=== PATIENT | male | born 1950 | race African-American/Black ===

== ENCOUNTER 2016-03-03 16:35 | Inpatient (IN) ==
[2016-03-03] MEDS ORDERED: NITROGLYCERIN 2% OINT 1 INCH/GM PACK TOP ONE (16:50)
--- NOTE | 2016-03-03 16:51 | Emergency Department Note ---
Arrival - Arrival Chief Complaint: Non-Specific ED Nursing Triage Note: c/o productive cough onset friday. pt had increased trop at [facility] Mode of Arrival: Stretcher Time Seen by Provider: 03/03/16 16:46 - History of Present Illness HPI Narrative: The patient presented to [facility] complaining of midepigastric pain which began Friday. He stated yesterday his pain was severe but he stated at home and toughed it out. Today he came to the emergency department for further evaluation after his pain persisted. At [facility] he was found to have ST depression laterally and other nonspecific changes but no ST elevations. The patient has elevated CK and MB and troponin with troponin of 54.3. He states his pain has gotten slightly better with medications given at [place]. He still has some midepigastric pain. Allergies/Adverse Reactions: Allergies Allergy/AdvReac Type Severity Reaction Status Date / Time No Known Allergies Allergy Unverified 03/03/16 16:52 Review of System - Review of System 12 point system: reviewed and no additional remarkable complaints except as stated Medical,Surgical,& Family Hx - Medical History Cardio: History of: Hypertension Endocrine: History of: Diabetes Mellitus (NIDDM) - Social History Smoking Status: Never smoker Frequency of Alcohol Use: Occasionally Type of Drug Use: None Exam Physical Examination: The patient appears well-developed and well-nourished with no acute distress. HEENT exam is unremarkable. The oropharynx is moist. Tympanic membranes are shiny. The neck appears normal with midline appearance of the trachea. There is full range of motion. The lungs are clear bilaterally. There is symmetric movement of the chest wall with inspiration. No point tenderness is present. The heart has a regular rate and rhythm with no gallops or murmurs. Abdomen demonstrates a normal appearance and is nontender with no rebound or guarding. Normal active bowel sounds are present. Midepigastric region is nontender. The extremities demonstrate no clubbing, cyanosis, or edema and are intact. Normal range of motion is present. Neurological exam is unremarkable. Cranial nerves II through XII were checked and intact. No focal motor sensory deficit is present in the extremities. Vital Signs: Vital Signs Temperature 98.2 F 03/03/16 16:40 Pulse Rate 84 03/03/16 16:40 Respiratory Rate 18 03/03/16 16:48 Blood Pressure 144/90 03/03/16 16:40 O2 Sat by Pulse Oximetry 98 03/03/16 16:40 Course - Consultations Consultation #1: Dr. Will Miller was notified of the admission and will either have Dr. Santos or himself evaluate the patient. Time: 16:51 Consultation #2: Dr. Santos requests rags laborer be called back. He also requests the patient be given Brilinta 180mg po X 1. Time: 16:55 Disposition Clinical Impression: Non-STEMI (non-ST elevated myocardial infarction), Hypertension, Diabetes Case discussed with: patient, patient's family Disposition: Still a Patient Time of Disposition: 16:52
[2016-03-03] MEDS ORDERED: NITROGLYCERIN 2% OINT 1 INCH/GM PACK TOP STA (16:52)
[2016-03-03] MEDS ORDERED: TICAGRELOR 90 MG TABLET PO STA (16:54)
[2016-03-03] MEDS ORDERED: TICAGRELOR 90 MG TABLET ONE (17:01)
[2016-03-03] MEDS ORDERED: HEPARIN/NACL 0.9% 2 UNITS/ML 1,000 ML IV ONE (17:13)
[2016-03-03] MEDS ORDERED: LIDOCAINE 1% 20 ML VIAL ONE (17:13)
--- NOTE | 2016-03-03 17:30 | Cardiology History & Physical ---
Assessment and Plan (1) Non-STEMI (non-ST elevated myocardial infarction) Status: Acute Assessment and plan: The patient is having a non-STEMI, but is having some ongoing anginal symptoms. He has a very large increase in cardiac enzymes. I think would be best to proceed to emergent cardiac catheterization and possible revascularization. The risks, alternatives, and potential benefits were discussed with the patient who understands and wishes to proceed. Current Visit: Yes (2) Diabetes Status: Acute Current Visit: Yes (3) Hypertension Status: Acute Current Visit: Yes History of Present Illness History of present illness: Mr. Cameron is a 65 year old male with a history of hypertension, hyperlipidemia , and diabetes. For the last week or so he has noticed when he is exerting himself he gets the chest discomfort. It's in the epigastric region. It seems to resolve with rest. There is some mild associated dyspnea and fatigue. This weekend the symptoms became worse. He thought this was indigestion and ignored the symptoms. They really became much worse on Friday. He presented to his local emergency room today and initial cardiac enzymes so a huge jump in his cardiac troponin of greater than 50 at baseline. He is still having some ongoing but milder epigastric chest discomfort. It improved after getting nitroglycerin. He has felt very fatigued and short of breath associated with this. This been no radiation. This been no diaphoresis, fever, chills, or cough. He denies any dysphagia or gastrointestinal blood loss. He has no previous history of myocardial infarction or coronary artery disease. His records from the outside hospital and [facility] were reviewed today. Home Medications Medication Instructions Recorded Confirmed Type Insulin NPH/Regular 70/30 [HumuLIN 10 unit SUBCUT QPM PRN 03/03/16 03/03/16 History 70/30] Insulin NPH/Regular 70/30 [HumuLIN 15 unit SUBCUT QAM PRN 03/03/16 03/03/16 History 70/30] Lisinopril 20 mg PO DAILY 03/03/16 03/03/16 History amLODIPine [Norvasc] 10 mg PO DAILY 03/03/16 03/03/16 History Home Medications Medication Instructions Recorded Confirmed Type Insulin NPH/Regular 70/30 [HumuLIN 10 unit SUBCUT QPM PRN 03/03/16 03/03/16 History 70/30] Insulin NPH/Regular 70/30 [HumuLIN 15 unit SUBCUT QAM PRN 03/03/16 03/03/16 History 70/30] Lisinopril 20 mg PO DAILY 03/03/16 03/03/16 History amLODIPine [Norvasc] 10 mg PO DAILY 03/03/16 03/03/16 History Allergies Allergy/AdvReac Type Severity Reaction Status Date / Time No Known Allergies Allergy Unverified 03/03/16 16:52 12 point system: reviewed and no additional remarkable complaints except as stated Medical,Surgical,& Family Hx - Medical History Cardio: History of: Hypertension Endocrine: History of: Diabetes Mellitus (NIDDM) - Social History Smoking Status: Never smoker Frequency of Alcohol Use: Occasionally Type of Drug Use: None Cardiology Physical Exam - Constitutional Vitals: Vital Signs Temp Pulse Resp BP Pulse Ox 98.2 F 84 18 144/90 98 03/03/16 16:40 03/03/16 16:40 03/03/16 16:48 03/03/16 16:40 03/03/16 16:40 Intake and Output 03/03/16 03/03/16 03/03/16 07:59 15:59 23:59 Other: Weight 88.451 kg Patient Weight 03/03/16 23:59 Weight 88.451 kg Exam: General: Appears well developed, well nourished, no apparent distress HEENT: Normocephalic, atraumatic Neck: Supple Neck, Midline Trachea, No Bruit, No JVD Cardiac: Reg Rate and Rhythm, 2 out of 6 Murmur, S4 gallop, no rub Lungs: Clear to auscultation, No Wheeze, Rales, Rhonchi Neuro: Cranial Nerve 2-12 Intact, Motor Function Grossly Intact Abdomen: Soft, Active Bowel Sounds, No Masses, No Pulsations/Bruits Skin: Normal color, no rash Extremities: No Clubbing, No Cyanosis, No Edema, Normal Upper Extr. Pulses Musculoskeletal: No acute abnormality noted Psychiatric: The patient does not appear to be anxious or depressed Result/EKG - Labs Lab Results: I have reviewed the past 24 hour labs - EKG EKG results: interpreted by me
[2016-03-03] MEDS ORDERED: HYDROmorphone 2 MG/1 ML VIAL ONE (17:33)
[2016-03-03] MEDS ORDERED: MIDAZOLAM 2 MG/2 ML VIAL ONE (18:21)
--- NOTE | 2016-03-03 18:41 | Cardiac Catheterization ---
Date of Procedure:: 03/03/16 Procedure: CLINICAL SUMMARY: The patient presented late into the course of a non-ST elevation [place]. He was still having ongoing symptoms and is being taken emergently for cardiac catheterization and definitive coronary artery assessment. PROCEDURES PERFORMED: 1. Right femoral percutaneous arteriotomy 2. Resting hemodynamics. 3. Coronary arteriography. 4. Right femoral arteriogram. 5. Angio-Seal closure of the right femoral artery. 6. Balloon angioplasty of the proximal right coronary artery in 2 locations with a 2.5 x 15 mm apex angioplasty balloon. DESCRIPTION OF PROCEDURE: After obtaining informed consent, the patient was brought to the cardiac catheterization lab where the right groin was prepped and draped in the usual sterile manner. Using IV sedation, local anesthesia, and Modified Seldinger technique, a needle was placed in the right femoral artery and a sheath was positioned without difficulty. A left coronary catheter was advanced over a guidewire under fluoroscopic control to the ascending aorta where angiograms of the left coronary artery were undertaken in multiple views. After adequate angiograms, this catheter was withdrawn and a right coronary catheter was advanced over a guidewire under fluoroscopic control to the ascending aorta with angiograms of the RCA were undertaken in numerous projections. I could not get a JR4 or a short AR-1 to seat properly for the intervention so I used an AL0.75 interventional guide for the procedure. I attempted to cross the lesion with a PT Graphix wire but could not. I switched for a pro-water wire and I was able to get across the lesion. We then used a 2.5 x 15 mm apex angioplasty balloon to perform balloon angioplasty in the proximal right coronary artery in 2 locations. Follow-up angiography showed a adequate result. There was some residual stenosis in the right coronary artery the side of intervention but this vessel was diffusely diseased. He had TOÑO 3 flow at the conclusion of the procedure. A right femoral arteriogram was performed showing adequate sheath placement for closure device deployment. The sheath was then removed and an Angio-Seal device was used to obtain hemostasis. The patient was transferred back to the room having suffered no immediate complications. HEMODYNAMICS: See the accompanying data sheet. CORONARY ARTERIOGRAPHY: LEFT MAIN: The left main coronary artery is a large caliber vessel, which bifurcates into the left anterior descending and left circumflex coronary arteries. The left main coronary artery has 30% distal tapering. LEFT CIRCUMFLEX: The left circumflex coronary artery is small caliber diffusely diseased vessel which gives off a small obtuse marginal and a small to moderate sized posterolateral system. There is diffuse disease in this vessel as well as an 80% stenosis in its mid to distal segment. The distal posterolateral branches of marginal size to be a surgical target. I am also suspicious that there is a completely occluded obtuse marginal branch that is not filling at all at this time. LEFT ANTERIOR DESCENDING: The left anterior descending artery is moderate sized vessel which gives off a moderate-sized diagonal branch proximally and several smaller diagonals in its distal segment. There is a greater than 90%, hazy, calcified stenosis of the ostial LAD. The first diagonal branch is subtotaled in its midsegment with slow distal filling. There is diffuse moderate disease in the mid to distal left anterior descending coronary artery as well. RIGHT CORONARY ARTERY: The right coronary artery is subtotaled proximally. PERIPHERAL ARTERIOGRAPHY: Right femoral arteriogram shows a normal right iliofemoral artery with adequate sheath placement for closure device deployment. IMPRESSIONS: 1. Late presentation non-ST elevation myocardial infarction involving complete occlusion of the right coronary artery as well as severe three-vessel coronary artery disease as described above. 2. Successful percutaneous intervention to the proximal right coronary artery with balloon angioplasty as described above. 3. High-grade residual disease in the ostial left anterior descending coronary artery. 4. Normal right iliofemoral artery was successful and distal closure. 5. Severe ischemic cardiomyopathy. PLAN: The patient came in with a late presentation of an in ST elevation [place]. He was having ongoing symptoms we took him emergently to catheterization which demonstrated occlusion of his right coronary artery. We got this successfully opened with balloon angioplasty, however, he has a high-grade ostial LAD lesion which I think would be very risky for percutaneous approach. He also has significant residual disease in his right coronary artery as well as the circumflex system. Ultimately, I thought the best course of action was to simply open the right coronary with balloon angioplasty and consider coronary artery bypass surgery for more definitive revascularization. His case was discussed today extensively with Dr. Miles Mehta who came in to review the films. We will be medically managing him in letting him recover from this event while anticipating possible surgical revascularization in a few days. I did not perform a ventriculogram to try to reduce the contrast exposure. We can assess his left ventricular systolic function with echo. Anesthesia: minimal conscious sedation Surgeon / Physician: Mando Santos Estimated blood loss: minimal Condition: critical Disposition: ICU/CCU - Discharge Disposition: Still a Patient - Medications / Follow-up
[2016-03-03] MEDS ORDERED: ACETAMINOPHEN 325 MG TABLET PO PRN (18:47)
[2016-03-03] MEDS ORDERED: SODIUM CHLORIDE 0.9% 1,000 ML IV SCH (19:00)
[2016-03-03] MEDS ORDERED: MAGNESIUM SULF RIDER 2 GM in PREMIX 1 EACH IV PRN (19:16)
[2016-03-03] MEDS ORDERED: MAGNESIUM SULF RIDER 4 GM in PREMIX 1 EACH IV PRN (19:16)
[2016-03-03] MEDS ORDERED: DOCUSATE SODIUM 100 MG CAPSULE PO PRN (19:16)
[2016-03-03] MEDS: HYDROmorphone 2 MG/1 ML VIAL IV PRN (20:50)
[2016-03-03 20:54] LABS: Basophils % 0.1 % (0.0-0.8); Hematocrit 40.4 VOL% (42.0-52.0); Hemoglobin 13.1 GM/DL (14.0-18.0); Immature Granulocytes % 0.4 %; Immature Granulocytes Absolute 0.06 #; Lymphocytes # 1.5 10*3/uL (1.4-4.0); Lymphocytes % 10.6 % (21.2-54.2); Mean Corpuscular HGB Conc 32.4 GM/DL (32-36); Mean Corpuscular Hemoglobin 26 PG (27-34); Mean Corpuscular Volume 80.8 FL (87-102); Mean Platelet Volume 11.1 FL (9.6-12.0); Monocytes % 7.4 % (1.7-12.7); Neutrophils # 11.2 10*3/uL (1.4-7.4); Neutrophils % 81.5 % (38.7-73.9); Platelet Count 269 10*3/uL (130-400); Red Cell Distribution Width 14.5 % (9.3-17.3); White Blood Count 13.7 10*3/uL (4.5-13.71)
[2016-03-03] MEDS ORDERED: FUROSEMIDE 40 MG/4 ML VIAL IV ONE ×2 (21:21)
[2016-03-03] MEDS: CARVEDILOL 6.25 MG TABLET PO SCH (22:17)
[2016-03-03] MEDS: TICAGRELOR 90 MG TABLET PO SCH (22:17)
[2016-03-03] MEDS: ROSUVASTATIN 20 MG TABLET PO SCH (22:18)
[2016-03-03] MEDS: ACETYLCYSTEINE 600 MG CAPSULE PO SCH (22:18)
[2016-03-03 23:31] LABS: INR 1.2; PT Patient Result 12.5 SECS; Partial Thromboplastin Time 32.9 SECS (0-40)
[2016-03-04] MEDS: HEPARIN DRIP 25,000 UNITS/500 ML PREMIX IV SCH ×2 (00:34→23:44)
[2016-03-04] MEDS: HYDROmorphone 2 MG/1 ML VIAL IV PRN ×2 (02:08→05:08)
[2016-03-04 04:25] LABS: Apearance,Urine Slightly Hazy (Clear); Bilirubin,Urine Negative (Negative); Blood, Urine Negative (Negative); Glucose,Urine (UA) 50 mg/dL (Negative); Ketones,Urine 5 mg/dL (Negative); Mucus,Urine Few /LPF (Occasional); Nitrite,Urine Negative (Negative); Protein,Urine >=500 MG/DL; RBC,Urine 1 /HPF (0-4); Sperm,Urine Few /HPF (Negative); Urine Specific Gravity 1.058 (1.001-1.035); WBC,Urine 1 /HPF (0-6)
[2016-03-04 04:26] LABS: Urine Color Dark yellow (Yellow)
[2016-03-04 04:39] LABS: Basophils % 0.1 % (0.0-0.8); Hematocrit 37.6 VOL% (42.0-52.0); Hemoglobin 12.2 GM/DL (14.0-18.0); Immature Granulocytes % 0.7 %; Lymphocytes # 0.7 10*3/uL (1.4-4.0); Lymphocytes % 4.4 % (21.2-54.2); Mean Corpuscular HGB Conc 32.4 GM/DL (32-36); Mean Corpuscular Hemoglobin 26 PG (27-34); Mean Corpuscular Volume 80.2 FL (87-102); Mean Platelet Volume 11.2 FL (9.6-12.0); Monocytes # 0.9 10*3/uL (0.11-0.8); Monocytes % 5.7 % (1.7-12.7); Neutrophils # 13.6 10*3/uL (1.4-7.4); Neutrophils % 89.1 % (38.7-73.9); Platelet Count 266 10*3/uL (130-400); Red Blood Count 4.69 10*6/uL (3.8-5.5); Red Cell Distribution Width 14.1 % (9.3-17.3); White Blood Count 15.3 10*3/uL (4.5-13.71)
[2016-03-04 05:07] LABS: Band Neutrophils 1 % (0-10); Lymphocytes 5 % (20-55); Segmented Neutrophils 89 % (50-85); Total Cells Counted 100
[2016-03-04 05:08] LABS: Burr Cells Slight; Hypochromasia 1+; Ovalocytes Slight; Platelet Estimate Adequate
[2016-03-04 05:31] LABS: CKMB % 5.5 %; Osmolality,Calculated 284.4 MOS/KG (273-304); Potassium 4.4 MMOL/L (3.5-5.1); Risk Ratio 3.11; VLDL CHOLESTEROL 14.2 MG/DL
[2016-03-04 05:32] LABS: Troponin I Only 45.4 NG/ML (0.00-0.045)
[2016-03-04 06:33] LABS: INR 1.2; PT Patient Result 12.3 SECS; Partial Thromboplastin Time 39.1 SECS (0-40)
[2016-03-04] MEDS ORDERED: HEPARIN DRIP 25,000 UNITS/500 ML PREMIX IV SCH (07:00)
--- NOTE | 2016-03-04 07:00 | EKG Report ---
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
[2016-03-04] MEDS: HEPARIN 5,000 UNIT/1 ML VIAL IV PRN (07:13)
--- NOTE | 2016-03-04 08:19 | EKG Report ---
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
--- NOTE | 2016-03-04 08:31 | Ultrasound Report ---
Exam: US carotid duplex BI Date: 03/04/2016 7:00 AM Indication: Coronary artery disease non-stemi Findings: Grayscale color flow analysis and spectral analysis imaging was performed with image stored and captured. Right Flow velocities centimeters per second Common carotid artery: 76 Proximal ICA: 62 Distal ICA: 34 External carotid artery: 65 Vertebral artery: 55 ICA/CCA ratio: 0.8 Measurements in millimeters Distal ICA: 5.6 Left: Flow velocities centimeters per second Common carotid artery: 62 Proximal ICA: 45 Distal ICA: 30 External carotid artery: 76 Vertebral artery: 35 ICA/CCA ratio: 0.7 Measurements in millimeters Distal ICA: 6.7 Grayscale color flow analysis reveals a normal color flow. There some intimal hyperplasia and plaque along the takeoff of the internal carotid arteries bilaterally. No spectral broadening present. Impression: 1. 16-49% stenosis bilaterally. Today studies were performed utilizing indirect NASCET criteria The ultrasound images were stored and captured PROCEDURE INTERPRETED AT [facility] DEPARTMENT OF RADIOLOGY Final Report Signed by: Dr. Soy Gordon
[2016-03-04] MEDS ORDERED: SPIRONOLACTONE 25 MG TABLET PO SCH (09:00)
[2016-03-04] MEDS ORDERED: LISINOPRIL 2.5 MG TABLET PO SCH (09:00)
[2016-03-04] MEDS ORDERED: FUROSEMIDE 40 MG TABLET PO SCH (09:00)
[2016-03-04] MEDS: ACETYLCYSTEINE 600 MG CAPSULE PO SCH ×2 (10:02→21:31)
[2016-03-04] MEDS: CARVEDILOL 6.25 MG TABLET PO SCH ×2 (10:02→21:30)
[2016-03-04] MEDS: ASPIRIN EC 81 MG TABLET PO SCH (10:02)
[2016-03-04] MEDS: TICAGRELOR 90 MG TABLET PO SCH ×2 (10:03→21:30)
--- NOTE | 2016-03-04 12:48 | ECHO Report ---
Omid Cameron Exam Date: 03/04/2016 07:43 Referring Physician: Technologist: Beverly Malone RDCS Age: 65 Ht (in): Wt (lb): Gender: M Exam Location: [facility] Echo Indications: Non-ST elevation (NSTEMI) myocardial infarction, NIDDM, Essential (primary) hypertension, Hyperlipidemia, unspecified, Shortness of breath, Chronic fatigue, unspecified BP: / HR: Rhythm: Sinus Technical Quality: IMPRESSIONS Left ventricular ejection fraction is estimated at 20-25 %. There is mild global hypokinesis and severe inferior hypo-to akinesis. Mild left ventricular hypertrophy. Mildly thickened mitral valve with moderate mitral regurgitation. Mild tricuspid valve regurgitation. Mild aortic sclerosis without significant stenosis. Mild bilateral atrial enlargement. MEASUREMENTS (Male / Female) Normal Values 2D ECHO LV Diastolic Diameter PLAX 5.9 cm 4.2 - 5.9 / 3.9 - 5.3 cm LV Systolic Diameter PLAX 4.8 cm LV Fractional Shortening PLAX 18.8 % IVS Diastolic Thickness 1.4 cm 0.6 - 1.0 / 0.6 - 0.9 cm LVPW Diastolic Thickness 1.4 cm 0.6 - 1.0 / 0.6 - 0.9 cm RV Internal Dim ED PLAX 3.4 cm Aortic Root Diameter 3.1 cm LA Systolic Diameter LX 6.0 cm 3.0 - 4.0 / 2.7 - 3.8 cm DOPPLER TR Peak Velocity 331.0 cm/s TR Peak Gradient 43.8 mmHg FINDINGS Left Ventricle Normal left ventricular cavity size. Mild left ventricular hypertrophy. Left ventricular ejection fraction is estimated at 20-25 %. Right Ventricle The right ventricle is normal in size and function. Right Atrium Moderately increased right atrial size. Left Atrium Moderately increased left atrial size. Mitral Valve Mildly thickened mitral valve with moderate mitral regurgitation. Aortic Valve Mild aortic valve sclerosis without significant stenosis. Tricuspid Valve Morphologically normal tricuspid valve. Mild tricuspid valve regurgitation. Tricuspid regurgitation velocities suggest a PAP of 54 mmHg. Pulmonic Valve Morphologically normal pulmonic valve without significant stenosis. There is no pulmonic regurgitation. Pericardium Normal pericardium without effusion. Aorta Normal ascending aorta dimension. Mando Santos (Electronically Signed) Final Date: 04 March 2016 12:46
[2016-03-04] MEDS ORDERED: FUROSEMIDE 40 MG/4 ML VIAL IV ONE (12:51)
[2016-03-04] MEDS ORDERED: FUROSEMIDE 40 MG/4 ML VIAL ONE (12:54)
[2016-03-04] MEDS ORDERED: NITROGLYCERIN DRIP 50 MG/250 ML BOTTLE IV ONE (12:54)
[2016-03-04] MEDS ORDERED: ALBUTEROL 0.63 MG/3 ML NEB RESP TX PRN (12:55)
--- NOTE | 2016-03-04 12:56 | Cardiology Progress Note ---
Antonio Morales Vanessa, RN, am scribing for, and in the presence of, Mando Santos MD 12:55. Assessment and Plan - Time spent with patient Time spent with patient: Less than 30 minutes (1) Status post percutaneous transluminal coronary angioplasty Status: Acute Assessment and plan: 65 year old black male with PMHx diabetes, hyperlipidemia, and HTN now presenting with NSTEMI after 3 days of epigastric discomfort and shortness of breath relieved with rest. Baseline troponin > 50 at outlying facility and discomforts were relieved with SL TNG. Taken for emergent cardiac catheterization yesterday evening. Now s/p PTCA of pRCA 2.5x15 [place] balloon. Found to have high grade 90% ostial LAD lesion, diffusely diseased Cx , and RCA with residual disease. 1. NSTEMI 2. Severe 3 vessel coronary artery disease. Dr. Miles Mehta has been consulted & patient will be planned for CABG. Medical management at this time to recover. 3. Severe ischemic cardiomyopathy. Echo this AM, pending 4. Diabetes mellitus 5. HTN 6. Hyperlipidemia Current Visit: Yes (2) Non-STEMI (non-ST elevated myocardial infarction) Status: Acute Current Visit: Yes (3) Diabetes Status: Acute Current Visit: Yes Qualifiers: Diabetes mellitus complication status: with kidney complications Diabetes mellitus complication detail: with nephropathy (4) Hypertension Status: Acute Current Visit: Yes (5) Diabetes mellitus with diabetic nephropathy Status: Acute Current Visit: Yes (6) Ischemic cardiomyopathy Status: Acute Current Visit: Yes Cardiology - PN: Subj Interval history: Closely monitored in ICU. Echo being performed at bedside. No CP. Says still feels mildly short of breath. RFA cath site dsg removed. Groin soft without bruising or bruit noted. Distal pulses 2+ and palpable audrey. CPK 1,629 and CTNI 45.4 this AM. Electrolytes and creatinine WNL. Mild hematuria in [place] drain bag. Current Medications Acetaminophen (Tylenol Tab) 650 mg PO Q4H PRN PRN Reason: Fever, Headache, Mild Pain Acetaminophen/Codeine Phosphate (Tylenol/Codeine #3) 2 tablet PO Q4H PRN PRN Reason: Pain Moderate (4-7) Acetylcysteine (Mucomyst Cap (Renal Protect)) 600 mg PO BID [facility] Last Admin: 03/04/16 10:02 Dose: 600 mg Aspirin () 81 mg PO DAILY [facility] Last Admin: 03/04/16 10:02 Dose: 81 mg Carvedilol (Coreg) 3.125 mg PO BID [facility] Last Admin: 03/04/16 10:02 Dose: 3.125 mg Chlorhexidine Gluconate (Hibiclens) 1 applic TOP TID [facility] Stop: 03/07/16 21:01 Chlorhexidine Gluconate (Peridex) 15 ml SWISH/SPIT BID [facility] Docusate Sodium (Colace Cap) 100 mg PO BID PRN PRN Reason: Constipation Furosemide (Lasix Tab) 40 mg PO DAILY [facility] Last Admin: 03/04/16 10:03 Dose: 40 mg Heparin Sodium (Porcine) () 3,000 unit IV .PER PROTOCOL PRN PRN Reason: Per Protocol Last Admin: 03/04/16 07:13 Dose: 3,000 unit Hydromorphone HCl (Dilaudid Inj) 0.5 mg IV Q4H PRN PRN Reason: Pain Severe (8-10) Last Admin: 03/04/16 05:08 Dose: 0.5 mg Heparin Sodium/Dextrose () 25,000 units in 500 mls @ 21.228 mls/hr IV TITRATE DASHA; 12 UNITS/KG/HR PRN Reason: Protocol Last Titration: 03/04/16 07:11 Dose: 11.3 units/kg/hr, 20 mls/hr Magnesium Sulfate 2 gm/ Premix 50 mls @ 25 mls/hr IV .PER PROTOCOL PRN; Protocol PRN Reason: Per Protocol Magnesium Sulfate 4 gm/ Premix 100 mls @ 25 mls/hr IV .PER PROTOCOL PRN; Protocol PRN Reason: Per Protocol Cefuroxime Sodium 1,500 mg/ (Sodium Chloride) 100 mls @ 200 mls/hr IV PREOP ONE Stop: 03/05/16 06:29 Lisinopril (Prinivil) 2.5 mg PO DAILY [facility] Last Admin: 03/04/16 10:02 Dose: 2.5 mg Ondansetron HCl (Zofran Inj) 4 mg IV Q4H PRN PRN Reason: Nausea Rosuvastatin Calcium (Crestor) 40 mg PO BEDTIME [facility] Last Admin: 03/03/16 22:18 Dose: 40 mg Spironolactone (Aldactone) 25 mg PO DAILY [facility] Last Admin: 03/04/16 10:03 Dose: 25 mg Ticagrelor (Brilinta) 90 mg PO BID [facility] Last Admin: 03/04/16 10:03 Dose: 90 mg Zaleplon (Sonata) 10 mg PO BEDTIME PRN PRN Reason: Sleep Exam (Progress Note) - Constitutional Vitals: Period Temp Pulse Resp BP Sys/Cruz Pulse Ox Last 24 Hr 98.2 F-98.4 F 77-100 17-22 116-198/78-118 90-98 General appearance: no acute distress - Head Head exam: Present: atraumatic - Eye Eye exam: Absent: periorbital swelling Pupils: Present: EWA - ENT ENT exam: Present: normal external ear exam - Neck Neck exam: Present: normal inspection. Absent: tenderness - Respiratory Respiratory exam: Present: clear to auscultation bilaterally, rales. Absent: rhonchi, stridor, wheezes - Cardiovascular Cardiovascular exam: Present: regular rate and rhythm. Absent: bradycardia, JVD , tachycardia - GI/Abdominal GI/Abdominal exam: Present: normal bowel sounds, soft. Absent: ascites, distended, tenderness - Extremities Exam Extremities exam: Present: normal inspection. Absent: calf tenderness, edema - Back Exam Back exam: Present: normal inspection - Neurological Exam Neurological exam: Present: alert, oriented X3 - Psychiatric Psychiatric exam: Present: normal affect, normal mood - Skin Skin exam: Present: warm, dry, other (dorsalis pedis, posterior tibial pulses 2 + audrey). Absent: rash Result/EKG - Labs CBC & BMP: 03/04/16 04:08 03/04/16 04:08 Lab Results: I have reviewed the past 24 hour labs Labs: Laboratory Results - last 24 hr 03/03/16 03/03/16 03/03/16 20:37 21:50 23:03 WBC 13.7 RBC 5.00 Hgb 13.1 L Hct 40.4 L MCV 80.8 L MCH 26 L MCHC 32.4 RDW 14.5 Plt Count 269 MPV 11.1 Neut % (Auto) 81.5 H Lymph % (Auto) 10.6 L [place] % (Auto) 7.4 Eos % (Auto) 0.0 Baso % (Auto) 0.1 Neut # (Auto) 11.2 H Lymph # (Auto) 1.5 [place] # (Auto) 1.0 H Eos # (Auto) 0.0 Baso # (Auto) 0.0 Total Counted Immature Gran % 0.4 Nucleated RBC % 0.0 Immature Gran # 0.06 Segmented Neutrophils Band Neutrophils Lymphocytes Monocytes Nucleated RBCs # 0.00 Platelet Estimate Hypochromasia Ovalocytes [place] Cells Morphology Comment INR 1.2 PT Patient/Control Mix 12.5 Circ Anticoag PTT 32.9 Sodium Potassium Chloride Carbon Dioxide Anion Gap BUN Creatinine GFR Calculation BUN/Creatinine Ratio Glucose Calculated Osmolality Calcium Magnesium Total Creatine Kinase CK-MB (CK-2) CK and CKMB Interp Troponin I Triglycerides Cholesterol LDL Cholesterol VLDL Cholesterol HDL Cholesterol Heart Disease Risk Ratio Urine Color Dark yellow Urine Appearance Slightly hazy Urine pH 5.0 Ur Specific Seanor 1.058 H Urine Protein >=500 Urine Glucose (UA) 50 Urine Ketones 5 Urine Blood Negative Urine Nitrate Negative Urine Bilirubin Negative Urine Urobilinogen 4.0 H Urine Leukocytes Negative Urine RBC 1 Urine WBC 1 Urine Mucus Few Urine Sperm Few Ur Culture Indicated? Not indicated 03/04/16 03/04/16 03/04/16 04:08 04:08 04:08 WBC 15.3 H RBC 4.69 Hgb 12.2 L Hct 37.6 L MCV 80.2 L MCH 26 L MCHC 32.4 RDW 14.1 Plt Count 266 MPV 11.2 Neut % (Auto) 89.1 H Lymph % (Auto) 4.4 L [place] % (Auto) 5.7 Eos % (Auto) 0.0 Baso % (Auto) 0.1 Neut # (Auto) 13.6 H Lymph # (Auto) 0.7 L [place] # (Auto) 0.9 H Eos # (Auto) 0.0 Baso # (Auto) 0.0 Total Counted 100 Immature Gran % 0.7 Nucleated RBC % 0.0 Immature Gran # 0.10 Segmented Neutrophils 89 H Band Neutrophils 1 Lymphocytes 5 L Monocytes 5 Nucleated RBCs # 0.00 Platelet Estimate Adequate Hypochromasia 1+ Ovalocytes Slight [place] Cells Slight Morphology Comment INR PT Patient/Control Mix Circ Anticoag PTT Sodium 133 L Potassium 4.4 Chloride 99 Carbon Dioxide 18 L Anion Gap 20.4 H BUN 39 H Creatinine 2.10 H GFR Calculation 46 BUN/Creatinine Ratio 18.00 Glucose 271 H Calculated Osmolality 284.4 Calcium 8.0 L Magnesium 1.8 Total Creatine Kinase 1629 H CK-MB (CK-2) 90.4 H CK and CKMB Interp 5.5 Troponin I 45.400 H Triglycerides 71 Cholesterol 202 H LDL Cholesterol 125.0 VLDL Cholesterol 14.2 HDL Cholesterol 65 H Heart Disease Risk Ratio 3.11 Urine Color Urine Appearance Urine pH Ur Specific Seanor Urine Protein Urine Glucose (UA) Urine Ketones Urine Blood Urine Nitrate Urine Bilirubin Urine Urobilinogen Urine Leukocytes Urine RBC Urine WBC Urine Mucus Urine Sperm Ur Culture Indicated? 03/04/16 06:08 WBC RBC Hgb Hct MCV MCH MCHC RDW Plt Count MPV Neut % (Auto) Lymph % (Auto) [place] % (Auto) Eos % (Auto) Baso % (Auto) Neut # (Auto) Lymph # (Auto) [place] # (Auto) Eos # (Auto) Baso # (Auto) Total Counted Immature Gran % Nucleated RBC % Immature Gran # Segmented Neutrophils Band Neutrophils Lymphocytes Monocytes Nucleated RBCs # Platelet Estimate Hypochromasia Ovalocytes [place] Cells Morphology Comment INR 1.2 PT Patient/Control Mix 12.3 Circ Anticoag PTT 39.1 Sodium Potassium Chloride Carbon Dioxide Anion Gap BUN Creatinine GFR Calculation BUN/Creatinine Ratio Glucose Calculated Osmolality Calcium Magnesium Total Creatine Kinase CK-MB (CK-2) CK and CKMB Interp Troponin I Triglycerides Cholesterol LDL Cholesterol VLDL Cholesterol HDL Cholesterol Heart Disease Risk Ratio Urine Color Urine Appearance Urine pH Ur Specific [place] Urine Protein Urine Glucose (UA) Urine Ketones Urine Blood Urine Nitrate Urine Bilirubin Urine Urobilinogen Urine Leukocytes Urine RBC Urine WBC Urine Mucus Urine Sperm Ur Culture Indicated? - EKG EKG results: interpreted by me EKG shows: sinus rhythm (pulse 80's, ST depression) Specialty Discharge - Follow Up or Referrals I, Mando Santos MD, personally performed the services described in this documentation, ascribed by Elba Alvarez RN in my presence, and it is both accurate and complete 256 .
[2016-03-04] MEDS ORDERED: GLUCAGON 1 MG VIAL IM PRN (12:59)
[2016-03-04] MEDS ORDERED: DEXTROSE 50% 25 GM/50 ML VIAL IV PRN (12:59)
[2016-03-04] MEDS: MORPHINE 2 MG/1 ML SYRINGE IV PRN ×3 (13:05→18:08)
--- NOTE | 2016-03-04 13:08 | Hospitalist Consult Note ---
Assessment and Plan (1) Non-STEMI (non-ST elevated myocardial infarction) Status: Acute Assessment and plan: await cabg on friday, coreg, lisinopril, asa and heparin drip, stat EKG and troponin Current Visit: Yes (2) Hypertension Status: Acute Assessment and plan: coreg and lisinopril Current Visit: Yes (3) Diabetes mellitus with diabetic nephropathy Status: Acute Assessment and plan: ISC, lantus 10 units Current Visit: Yes (4) Ischemic cardiomyopathy Status: Acute Assessment and plan: echo ef 25% post [place], chf on exam, stat cxr, lasix 40 mg IV every 12 hours Current Visit: Yes (5) SOB (shortness of breath) Status: Acute Assessment and plan: morphine and nitro drip added as tolerated by blood pressure. Lasix IV every 12 hours. Stat ABG and cxr, venous dopplers, cont heparin, start abx, elevated WBC, zosyn, Stat EKG and troponin. Current Visit: Yes (6) Renal failure Status: Acute Assessment and plan: renal us, monitor Current Visit: Yes History of Present Illness - Data of Consult Consult date: 03/04/16 Requesting Physician: Mando Santos - Consult Narrative Reason for consult: DM management History of present illness: Mr. Cameron is a 65 year old male with history of HTN and IDDM present with elevated troponin several days out from [place]. Dr Santos did heart cath and ballooned open his right coronary artery but patient had high-grade residual disease in the ostial left anterior descending coronary artery. Patient scheduled to go for CABG on Friday. We were asked to see him to manage his diabetes. Patient still having pressure in his chest with associated shortness of breath and we had to go up on his oxygen. His white count is elevated looked pale to me. I have ordered a nitro drip, morphine, stat chest x-ray and an ABG. He sounds wet on exam and lab orders and Dr. Santos has ordered some IV Lasix. Echocardiogram discussed with Dr. Santos his EF is only 25%. Patient has severe cardiomyopathy from this myocardial infarction. EKG, troponin. CC: Mando Santos MD - Home Medications and Allergies Home Medications: Home Medications Medication Instructions Recorded Confirmed Type Insulin NPH/Regular 70/30 [HumuLIN 10 unit SUBCUT QPM PRN 03/03/16 03/03/16 History 70/30] Insulin NPH/Regular 70/30 [HumuLIN 15 unit SUBCUT QAM PRN 03/03/16 03/03/16 History 70/30] Lisinopril 20 mg PO DAILY 03/03/16 03/03/16 History amLODIPine [Norvasc] 10 mg PO DAILY 03/03/16 03/03/16 History Allergies/Adverse Reactions: Allergies Allergy/AdvReac Type Severity Reaction Status Date / Time No Known Allergies Allergy Unverified 03/03/16 16:52 Medical,Surgical,& Family Hx - Medical History Cardio: History of: Hypertension Endocrine: History of: Diabetes Mellitus (NIDDM), Dyslipidemia - Surgical History Orthopedic Surgeries: Surgical HX of;: Orthopedic Surgery (knee surgery 2007) - Family History Family History: Reports;: Family Heart Disease - Social History Smoking Status: Never smoker Frequency of Alcohol Use: Occasionally Type of Drug Use: None Marital Status: Lives With:: Spouse Functional capacity: independent ambulation - Constitutional Constitutional: Present: weakness. Absent: fever(s), headache(s) - EENT Eyes: Absent: blurry vision, diplopia Ears: Absent: decreased hearing, ear discharge Nose, mouth and throat: Present: sore throat. Absent: headache(s) - Cardiovascular Cardiovascular: Present: chest pain at rest, chest pain with activity, dyspnea, dyspnea on exertion, orthopnea. Absent: edema - Respiratory Respiratory: Present: cough, dyspnea, dyspnea on exertion. Absent: wheezing, change in phlegm color - Gastrointestinal Gastrointestinal: Absent: abdominal pain, constipation, diarrhea, nausea, vomiting - Genitourinary Genitourinary: Absent: difficulty urinating, dysuria - Musculoskeletal Musculoskeletal: Absent: arthralgias - Neurological Neurological: Absent: confusion, headache(s), syncope - Psychiatric Psychiatric: Absent: anxiety, depression - Endocrine Endocrine: Present: fatigue, heat intolerance - Hematologic/Lymphatic Hematologic/Lymphatic: Absent: easy bleeding, easy bruising Exam - Constitutional Vitals: Period Temp Pulse Resp BP Sys/Cruz Pulse Ox Last 24 Hr 97.6 F-98.4 F 77-100 12-22 116-198/78-118 90-98 General appearance: normal weight, severe distress - Head Head exam: Present: normal inspection, normocephalic - Eye Eye exam: Present: EOMI. Absent: scleral icterus Pupils: Present: EWA, normal accommodation - ENT ENT exam: Present: normal exam, normal external ear exam - Neck Neck exam: Absent: lymphadenopathy, thyromegaly - Respiratory Respiratory exam: Present: decreased breath sounds, rales. Absent: wheezes - Cardiovascular Cardiovascular exam: Present: tachycardia. Absent: systolic murmur - GI/Abdominal GI/Abdominal exam: Present: normal bowel sounds, soft. Absent: tenderness - Extremities Exam Extremities exam: Present: normal inspection, normal capillary refill - Neurological Exam Neurological exam: Present: alert, oriented X3, CN II-XII intact, reflexes normal. Absent: motor sensory deficit - Psychiatric Psychiatric exam: Present: normal affect, normal mood - Skin Skin exam: Present: normal color, warm Results - Labs CBC & BMP: 03/04/16 04:08 03/04/16 04:08 Lab Results: I have reviewed the past 24 hour labs - Diagnostic Findings Procedure: Chest x-ray: pending, Ultrasound: report reviewed by me (carotid less than 50% stenosis ) Specialty Discharge - Follow Up or Referrals
[2016-03-04] MEDS: NITROGLYCERIN DRIP 50 MG/250 ML BOTTLE IV SCH (13:10)
--- NOTE | 2016-03-04 13:11 | EKG Report ---
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
--- NOTE | 2016-03-04 13:14 | XRay Report ---
Exam: XR chest 1V portable Date: 03/04/2016 1:00 PM Indication: Shortness of breath Comparison: None Technical:AP semierect portable Findings: Cardiomegaly is present. Alveolar edema is present. Oxygen tubing external cardiac leads are present. ASVD present mild degenerative changes of the shoulders present. No obvious pneumothorax noted. Impression: 1. Cardiomegaly with a component of acute pulmonary edema with the alveolar edematous changes in low-volume effusions present bilaterally PROCEDURE INTERPRETED AT [facility] DEPARTMENT OF RADIOLOGY Final Report Signed by: Dr. Soy Gordon
[2016-03-04] MEDS: PANTOPRAZOLE 40 MG TABLET PO SCH (13:23)
[2016-03-04] MEDS: INSULIN GLARGINE 100 UNIT/ML SUBCUT SCH (13:24)
[2016-03-04] MEDS: PIPERACILLIN/TAZOBACTAM 3,375 MG in SODIUM CHLORIDE 0.9% 100 ML IV SCH ×2 (13:29→22:24)
[2016-03-04 13:57] LABS: ABG Base Excess -5.2 MMOL/L (-2.5-2.5); ABG Oxygen Saturation 90.7 % (95-100); ABG PCO2 29.3 MM HG (35-48); ABG PH 7.406 (7.35-7.45); ABG PO2 62.5 MM HG (80-95); ABG TCO2 16.3 MMOL/L (23-27)
--- NOTE | 2016-03-04 14:28 | Cardiothoracic Consult ---
Assessment and Plan - Time spent with patient Time spent with patient: Greater than 30 minutes (1) Coronary artery disease Status: Acute Assessment and plan: Risk Model and Variables - STS Adult Cardiac Surgery Database Version 2.81 RISK SCORES About the STS Risk Calculator Procedure: CAB Only Risk of Mortality: 7.04% Morbidity or Mortality: 48.846% Long Length of Stay: 27.243% Short Length of Stay: 10.785% Permanent Stroke: 4.164% Prolonged Ventilation: 33.541% DSW Infection: 2.524% Renal Failure: 21.929% Reoperation: 14.1% 65-year-old gentleman with complex medical history and recent diagnosis of multivessel coronary artery disease, moderate mitral regurg, congestive heart failure with EF off 20%. After lengthy discussion with the patient and and explaining that the patient is a high risk for surgery however it represents his best option for revascularization they understands risks benefits and alternatives and they are willing to proceed. Of note I will obtain a carotid ultrasound to rule out carotid stenosis. Also obtained an echo earlier today which showed the severely depressed function of the ventricle as well as the mitral disease. We will proceed with surgery on Friday , 03/08/2016. Meanwhile he will remain on heparin drip. Current Visit: Yes History of Present Illness - Data of Consult Patient: new to practice Consult date: 03/03/16 Requesting Physician: Mando Santos - Consult Narrative Reason for consult: Severe coronary artery disease History of present illness: Mr. Cameron is a 65 year old male who has been having increasing shortness of breath for the past few weeks. Most recently on Friday the patient couldn't catch his breath at all. He started having chest pain. He came to the ER and he was evaluated and he was taken to the [facility]. He was found to have severe multivessel coronary artery disease with complete occlusion of his right coronary artery. Direct biopsy was ballooned open with good reperfusion however it was found that he has distal disease with long segment stenosis. He was found also to have LAD as well as circumflex disease. The patient had an echo today showing EF of 20-25% with moderate mitral regurg. CC: Mando Santos MD - Home Medications and Allergies Home Medications: Home Medications Medication Instructions Recorded Confirmed Type Insulin NPH/Regular 70/30 [HumuLIN 10 unit SUBCUT QPM PRN 03/03/16 03/03/16 History 70/30] Insulin NPH/Regular 70/30 [HumuLIN 15 unit SUBCUT QAM PRN 03/03/16 03/03/16 History 70/30] Lisinopril 20 mg PO DAILY 03/03/16 03/03/16 History amLODIPine [Norvasc] 10 mg PO DAILY 03/03/16 03/03/16 History Allergies/Adverse Reactions: Allergies Allergy/AdvReac Type Severity Reaction Status Date / Time No Known Allergies Allergy Unverified 03/03/16 16:52 12 point system: reviewed and no additional remarkable complaints except as stated (HPI) Medical,Surgical,& Family Hx - Medical History Cardio: History of: Cardiac Dysrhythmia, CHF, CAD, Hypertension, [place] Endocrine: History of: Diabetes Mellitus (NIDDM), Dyslipidemia Renal: History of: Renal Failure - Surgical History Orthopedic Surgeries: Surgical HX of;: Orthopedic Surgery (knee surgery 2007) - Family History Family History: Reports;: Family Heart Disease - Social History Smoking Status: Never smoker Frequency of Alcohol Use: Occasionally Type of Drug Use: None Physical Examination Vital Signs Temp Pulse Resp BP Pulse Ox 98.2 F 84 18 144/90 98 03/03/16 16:40 03/03/16 16:40 03/03/16 16:40 03/03/16 16:40 03/03/16 16:40 General: Present: No Apparent Distress HEENT: Present: PERRL Neck: Present: Supple Neck Cardiac: Present: Reg Rate and Rhythm Lungs: Present: Normal Exam Neuro: Present: Cranial Nerve 2-12 Intact Abdomen: Present: Soft Skin: Present: Clear Result/EKG - Labs CBC & BMP: 03/04/16 04:08 03/04/16 04:08 Labs: Laboratory Results - last 24 hr 03/03/16 03/03/16 03/03/16 20:37 21:50 23:03 WBC 13.7 RBC 5.00 Hgb 13.1 L Hct 40.4 L MCV 80.8 L MCH 26 L MCHC 32.4 RDW 14.5 Plt Count 269 MPV 11.1 Neut % (Auto) 81.5 H Lymph % (Auto) 10.6 L [place] % (Auto) 7.4 Eos % (Auto) 0.0 Baso % (Auto) 0.1 Neut # (Auto) 11.2 H Lymph # (Auto) 1.5 [place] # (Auto) 1.0 H Eos # (Auto) 0.0 Baso # (Auto) 0.0 Total Counted Immature Gran % 0.4 Nucleated RBC % 0.0 Immature Gran # 0.06 Segmented Neutrophils Band Neutrophils Lymphocytes Monocytes Nucleated RBCs # 0.00 Platelet Estimate Hypochromasia Ovalocytes Kristofer Cells Morphology Comment INR 1.2 PT Patient/Control Mix 12.5 Circ Anticoag PTT 32.9 ABG pH ABG pCO2 ABG pO2 ABG HCO3 ABG Total CO2 ABG O2 Saturation ABG Base Excess Sodium Potassium Chloride Carbon Dioxide Anion Gap BUN Creatinine GFR Calculation BUN/Creatinine Ratio Glucose Hemoglobin A1c Calculated Osmolality Calcium Magnesium Total Creatine Kinase CK-MB (CK-2) CK and CKMB Interp Troponin I Triglycerides Cholesterol LDL Cholesterol VLDL Cholesterol HDL Cholesterol Heart Disease Risk Ratio Free T4 TSH 3rd Generation Urine Color Dark yellow Urine Appearance Slightly hazy Urine pH 5.0 Ur Specific [place] 1.058 H Urine Protein >=500 Urine Glucose (UA) 50 Urine Ketones 5 Urine Blood Negative Urine Nitrate Negative Urine Bilirubin Negative Urine Urobilinogen 4.0 H Urine Leukocytes Negative Urine RBC 1 Urine WBC 1 Urine Mucus Few Urine Sperm Few Ur Culture Indicated? Not indicated Blood Type Antibody Screen 03/04/16 03/04/16 03/04/16 04:08 04:08 04:08 WBC 15.3 H RBC 4.69 Hgb 12.2 L Hct 37.6 L MCV 80.2 L MCH 26 L MCHC 32.4 RDW 14.1 Plt Count 266 MPV 11.2 Neut % (Auto) 89.1 H Lymph % (Auto) 4.4 L [place] % (Auto) 5.7 Eos % (Auto) 0.0 Baso % (Auto) 0.1 Neut # (Auto) 13.6 H Lymph # (Auto) 0.7 L [place] # (Auto) 0.9 H Eos # (Auto) 0.0 Baso # (Auto) 0.0 Total Counted 100 Immature Gran % 0.7 Nucleated RBC % 0.0 Immature Gran # 0.10 Segmented Neutrophils 89 H Band Neutrophils 1 Lymphocytes 5 L Monocytes 5 Nucleated RBCs # 0.00 Platelet Estimate Adequate Hypochromasia 1+ Ovalocytes Slight Kristofer Cells Slight Morphology Comment INR PT Patient/Control Mix Circ Anticoag PTT ABG pH ABG pCO2 ABG pO2 ABG HCO3 ABG Total CO2 ABG O2 Saturation ABG Base Excess Sodium 133 L Potassium 4.4 Chloride 99 Carbon Dioxide 18 L Anion Gap 20.4 H BUN 39 H Creatinine 2.10 H GFR Calculation 46 BUN/Creatinine Ratio 18.00 Glucose 271 H Hemoglobin A1c Calculated Osmolality 284.4 Calcium 8.0 L Magnesium 1.8 Total Creatine Kinase 1629 H CK-MB (CK-2) 90.4 H CK and CKMB Interp 5.5 Troponin I 45.400 H Triglycerides 71 Cholesterol 202 H LDL Cholesterol 125.0 VLDL Cholesterol 14.2 HDL Cholesterol 65 H Heart Disease Risk Ratio 3.11 Free T4 TSH 3rd Generation Urine Color Urine Appearance Urine pH Ur Specific [place] Urine Protein Urine Glucose (UA) Urine Ketones Urine Blood Urine Nitrate Urine Bilirubin Urine Urobilinogen Urine Leukocytes Urine RBC Urine WBC Urine Mucus Urine Sperm Ur Culture Indicated? Blood Type Antibody Screen 03/04/16 03/04/16 03/04/16 06:08 12:03 12:03 WBC RBC Hgb Hct MCV MCH MCHC RDW Plt Count MPV Neut % (Auto) Lymph % (Auto) [place] % (Auto) Eos % (Auto) Baso % (Auto) Neut # (Auto) Lymph # (Auto) [place] # (Auto) Eos # (Auto) Baso # (Auto) Total Counted Immature Gran % Nucleated RBC % Immature Gran # Segmented Neutrophils Band Neutrophils Lymphocytes Monocytes Nucleated RBCs # Platelet Estimate Hypochromasia Ovalocytes [place] Cells Morphology Comment INR 1.2 PT Patient/Control Mix 12.3 Circ Anticoag PTT 39.1 47.6 H D ABG pH ABG pCO2 ABG pO2 ABG HCO3 ABG Total CO2 ABG O2 Saturation ABG Base Excess Sodium Potassium Chloride Carbon Dioxide Anion Gap BUN Creatinine GFR Calculation BUN/Creatinine Ratio Glucose Hemoglobin A1c 9.5 H Calculated Osmolality Calcium Magnesium Total Creatine Kinase CK-MB (CK-2) CK and CKMB Interp Troponin I Triglycerides Cholesterol LDL Cholesterol VLDL Cholesterol HDL Cholesterol Heart Disease Risk Ratio Free T4 TSH 3rd Generation Urine Color Urine Appearance Urine pH Ur Specific [place] Urine Protein Urine Glucose (UA) Urine Ketones Urine Blood Urine Nitrate Urine Bilirubin Urine Urobilinogen Urine Leukocytes Urine RBC Urine WBC Urine Mucus Urine Sperm Ur Culture Indicated? Blood Type Antibody Screen 03/04/16 03/04/16 03/04/16 12:03 12:08 12:08 WBC RBC Hgb Hct MCV MCH MCHC RDW Plt Count MPV Neut % (Auto) Lymph % (Auto) [place] % (Auto) Eos % (Auto) Baso % (Auto) Neut # (Auto) Lymph # (Auto) [place] # (Auto) Eos # (Auto) Baso # (Auto) Total Counted Immature Gran % Nucleated RBC % Immature Gran # Segmented Neutrophils Band Neutrophils Lymphocytes Monocytes Nucleated RBCs # Platelet Estimate Hypochromasia Ovalocytes Kristofer Cells Morphology Comment INR PT Patient/Control Mix Circ Anticoag PTT ABG pH ABG pCO2 ABG pO2 ABG HCO3 ABG Total CO2 ABG O2 Saturation ABG Base Excess Sodium Potassium Chloride Carbon Dioxide Anion Gap BUN Creatinine GFR Calculation BUN/Creatinine Ratio Glucose Hemoglobin A1c Calculated Osmolality Calcium Magnesium Total Creatine Kinase CK-MB (CK-2) CK and CKMB Interp Troponin I 33.200 H D Triglycerides Cholesterol LDL Cholesterol VLDL Cholesterol HDL Cholesterol Heart Disease Risk Ratio Free T4 1.54 H TSH 3rd Generation Urine Color Urine Appearance Urine pH Ur Specific [place] Urine Protein Urine Glucose (UA) Urine Ketones Urine Blood Urine Nitrate Urine Bilirubin Urine Urobilinogen Urine Leukocytes Urine RBC Urine WBC Urine Mucus Urine Sperm Ur Culture Indicated? Blood Type O POSITIVE Antibody Screen Negative 03/04/16 03/04/16 12:08 13:54 WBC RBC Hgb Hct MCV MCH MCHC RDW Plt Count MPV Neut % (Auto) Lymph % (Auto) [place] % (Auto) Eos % (Auto) Baso % (Auto) Neut # (Auto) Lymph # (Auto) [place] # (Auto) Eos # (Auto) Baso # (Auto) Total Counted Immature Gran % Nucleated RBC % Immature Gran # Segmented Neutrophils Band Neutrophils Lymphocytes Monocytes Nucleated RBCs # Platelet Estimate Hypochromasia Ovalocytes Krist[place] Cells Morphology Comment INR PT Patient/Control Mix Circ Anticoag PTT ABG pH 7.406 ABG pCO2 29.3 L ABG pO2 62.5 L ABG HCO3 20.0 ABG Total CO2 16.3 L ABG O2 Saturation 90.7 L ABG Base Excess -5.2 L Sodium Potassium Chloride Carbon Dioxide Anion Gap BUN Creatinine GFR Calculation BUN/Creatinine Ratio Glucose Hemoglobin A1c Calculated Osmolality Calcium Magnesium Total Creatine Kinase CK-MB (CK-2) CK and CKMB Interp Troponin I Triglycerides Cholesterol LDL Cholesterol VLDL Cholesterol HDL Cholesterol Heart Disease Risk Ratio Free T4 TSH 3rd Generation 1.580 Urine Color Urine Appearance Urine pH Ur Specific [place] Urine Protein Urine Glucose (UA) Urine Ketones Urine Blood Urine Nitrate Urine Bilirubin Urine Urobilinogen Urine Leukocytes Urine RBC Urine WBC Urine Mucus Urine Sperm Ur Culture Indicated? Blood Type Antibody Screen Specialty Discharge - Follow Up or Referrals
--- NOTE | 2016-03-04 15:17 | Ultrasound Report ---
US venous doppler LE BI Indication: Swelling. BILATERAL LOWER EXTREMITY VENOUS ULTRASOUND Comparison: None Findings: Graded grayscale compression, color Doppler and pulsed Doppler ultrasound evaluation of the venous structures performed. Normal compressibility, augmentation and color saturation is present within bilateral common femoral, superficial femoral, popliteal and proximal greater saphenous veins. Impression: No evidence of DVT either lower extremity. PROCEDURE INTERPRETED AT [facility] DEPARTMENT OF RADIOLOGY Final Report Signed by: Dylan Strange M.D.
--- NOTE | 2016-03-04 15:37 | Ultrasound Report ---
US renal Bilateral Indication: Acute versus chronic renal failure. RENAL ULTRASOUND: Grayscale and color Doppler imaging the kidneys performed. Right kidney measures 121 x 44 x 45 mm. Left kidney measures 115 x 58 x 59 mm. No hydronephrosis, mass, cyst or calcification identified on either side. Color Doppler flow at both renal jesus documented. Impression: Negative ultrasound the kidneys. PROCEDURE INTERPRETED AT [facility] DEPARTMENT OF RADIOLOGY Final Report Signed by: Dylan Strange M.D.
[2016-03-04] MEDS ORDERED: LEVOFLOXACIN INJ 750 MG in PREMIX 1 EACH IV SCH (16:30)
[2016-03-04] MEDS: guaiFENesin 200 MG/10 ML UDCUP PO PRN (16:43)
--- NOTE | 2016-03-04 17:11 | Nephrology Consult Note ---
History of Present Illness Chief complaint: decreased urine output History of present illness: Mr. Cameron is a 65 year old male gentleman who was admitted on 03/03/2016 for epigastric pain and shortness of breath. The patient states he began to have some epigastric pain and discomfort about 2 days prior to his admission. This discomfort persisted over the ensuing days and was also associated with some shortness of breath nausea and vomiting and decreased intake. The patient relates that he had been having a cough for about a week productive of whitish yellow sputum. The patient denies any fever or chills. The patient has a history of diabetes and hypertension but does not recall any history of kidney disease. The patient states it's been over a year since he sustained a physician. The patient underwent a emergent catheterization last night and was found to have significant coronary artery disease which required an angioplasty he is also felt to have further coronary disease which may ultimately require open heart surgery to repair. The patient is tentatively scheduled for 3 vessel CABG this Friday. ROS: Head - denies headaches ENT - denies sore throat Lymphatics - denies lymphadenopathy Hematology - denies bleeding problems Heart -positive chest pain Lungs -positive shortness of breath Abdomen -positive nausea and vomiting Musculoskeletal - denies arthritis Skin - denies rash Neurology - denies stroke General - denies fever PE: General: in mild to moderate respiratory distress Eyes: Pupils are round and reactive, conjunctivae are clear ENT: Nose is clear, O/P is benign Neck: Supple, no thyromegaly Lymphatics: No cervical, supraclavicular or axillary adenopathy Heart: Regular rate and rhythm, no edema Lungs: Clear to auscultation anteriorly, chest expansion symmetric Abdomen: Soft, normoactive bowel sounds, no hepatomegaly Musculoskeletal: No joint erythema or effusions or joint asymmetry Skin: Normal turgor, normal hydration, no rash Neuro/Psych: Alert and cooperative with fair insight Home Medications Medication Instructions Recorded Confirmed Type Insulin NPH/Regular 70/30 [HumuLIN 10 unit SUBCUT QPM PRN 03/03/16 03/03/16 History 70/30] Insulin NPH/Regular 70/30 [HumuLIN 15 unit SUBCUT QAM PRN 03/03/16 03/03/16 History 70/30] Lisinopril 20 mg PO DAILY 03/03/16 03/03/16 History amLODIPine [Norvasc] 10 mg PO DAILY 03/03/16 03/03/16 History Allergies Allergy/AdvReac Type Severity Reaction Status Date / Time No Known Allergies Allergy Unverified 03/03/16 16:52 Medical,Surgical,& Family Hx - Medical History Cardio: History of: Cardiac Dysrhythmia, CHF, CAD, Hypertension, [place] Endocrine: History of: Diabetes Mellitus (NIDDM), Dyslipidemia Renal: History of: Renal Failure - Surgical History Orthopedic Surgeries: Surgical HX of;: Orthopedic Surgery (knee surgery 2007) - Family History Family History: Reports;: Family Diabetes, Family Heart Disease, Family Hypertension - Social History Smoking Status: Never smoker Frequency of Alcohol Use: Occasionally Type of Drug Use: None Exam - Vital Signs Vital signs: Period Temp Pulse Resp BP Sys/Cruz Pulse Ox Last 24 Hr 97.6 F-98.4 F 77-100 12-22 116-198/78-118 90-99 Results - Labs CBC & BMP: 03/04/16 04:08 03/04/16 04:08 Assessment and Plan (1) Renal failure Status: Acute Assessment and plan: This patient was admitted with a elevated creatinine of 2.1 mg/dL, his baseline is not known. He was making some urine up until the past 3-4 hours. He is presently getting 40 mg of Lasix IV twice a day without response. I suspect this patient has a acute kidney injury related to his myocardial infarction as well as contrast administration. He may also have some underlying chronic kidney disease related to diabetes and hypertension. At this point if he continues without response to the diuretics I will discontinue these. I would also stopped the MIRACLE inhibitor that is been started. Current Visit: Yes (2) Coronary artery disease Status: Acute Assessment and plan: Patient was admitted with an [place], he is undergone coronary angioplasty, he is being considered for open heart surgery later this week. Current Visit: Yes (3) Diabetes Status: Acute Current Visit: Yes Qualifiers: Diabetes mellitus complication status: with kidney complications Diabetes mellitus complication detail: with nephropathy (4) Hypertension Status: Acute Current Visit: Yes (5) Non-STEMI (non-ST elevated myocardial infarction) Status: Acute Current Visit: Yes (6) Status post percutaneous transluminal coronary angioplasty Status: Acute Current Visit: Yes Specialty Discharge - Follow Up or Referrals
[2016-03-04] MEDS: ACETAMINOPHEN/CODEINE 300-30 MG TABLET PO PRN (17:29)
[2016-03-04] MEDS: INSULIN LISPRO 100 UNIT/ML SUBCUT SCH (18:13)
[2016-03-04] MEDS ORDERED: PROPOFOL 1,000 MG/100 ML BOTTLE IV ONE (18:23)
[2016-03-04] MEDS: PROPOFOL 1,000 MG/100 ML BOTTLE IV SCH ×3 (18:50→23:45)
--- NOTE | 2016-03-04 18:57 | Anesthesia ---
Anesthesia Procedures - Intubation Time out performed intubation: Yes Sedative: Etomidate Mg given sedative: 18 Paralytic: Succinylcholine Mg given paralytic: 140 Laryngoscope: Rachle (3) ET Tube Size: 8 (taper guard tube) ET Tube Uncuffed: No Tube Secured Depth (cm): 24 Tube Secured Location: lips Tube Placement Confirmation: visualized tube passing through cords, equal breath sounds bilaterally, no breath sounds over epigastrium, confirmation detector color change Patient tolerated procedure intubation: no complications Intubation Complications: none (Lidocaine 100mg iv given prior to etomidate)
[2016-03-04] MEDS ORDERED: ETOMIDATE 20 MG/10 ML VIAL IV ONE (18:58)
[2016-03-04] MEDS ORDERED: SUCCINYLCHOLINE 200 MG/10 ML VIAL ONE (18:58)
--- NOTE | 2016-03-04 19:10 | Event Note ---
The pt had increased work of breathing, with minimal urine output, almost aneuric, He became anxious with increasing O2 requirment. He required intubation. Appreciate nephrology input. He will need to be optimized prior to surgery as he now presents almost prohibitive surgical risk. Hopefully will improve once we could off load his right ventricle when Kidneys recover or with dialysis. Appreciate ICU nursing care.
--- NOTE | 2016-03-04 19:13 | XRay Report ---
Portable chest. Indication: Endotracheal tube placement. Comparison, exam from one hour earlier. The heart is enlarged. There are bilateral infiltrates present in a perihilar distribution suggestive of pulmonary edema. There is atelectasis which has developed in the left lung base. An endotracheal tube is in place. Its distal tip is about 5 cm above the madie, in good position. No pneumothorax. Small left pleural effusion cannot be excluded. Degenerative changes of the spinal column and shoulders. Impression: Satisfactory endotracheal tube placement. Development of left basilar atelectasis. Worsening perihilar infiltrates suggestive of pulmonary edema. PROCEDURE INTERPRETED AT [facility] DEPARTMENT OF RADIOLOGY Final Report Signed by: Dr. Sophie Jerome
[2016-03-04 19:20] LABS: Basophils % 0.1 % (0.0-0.8); Hematocrit 32.7 VOL% (42.0-52.0); Hemoglobin 11.1 GM/DL (14.0-18.0); Immature Granulocytes % 0.8 %; Immature Granulocytes Absolute 0.13 #; Lymphocytes # 0.6 10*3/uL (1.4-4.0); Lymphocytes % 3.7 % (21.2-54.2); Mean Corpuscular HGB Conc 33.9 GM/DL (32-36); Mean Corpuscular Hemoglobin 27 PG (27-34); Mean Corpuscular Volume 79.4 FL (87-102); Mean Platelet Volume 10.6 FL (9.6-12.0); Monocytes # 0.7 10*3/uL (0.11-0.8); Monocytes % 3.8 % (1.7-12.7); Neutrophils # 15.8 10*3/uL (1.4-7.4); Neutrophils % 91.6 % (38.7-73.9); Platelet Count 247 10*3/uL (130-400); Red Blood Count 4.12 10*6/uL (3.8-5.5); White Blood Count 17.3 10*3/uL (4.5-13.71)
[2016-03-04] MEDS ORDERED: DOBUTamine 500 MG/250 ML PREMIX IV SCH (19:30)
[2016-03-04 20:00] LABS: CKMB % 4.5 %
[2016-03-04 20:07] LABS: Troponin I Only 31.9 NG/ML (0.00-0.045)
[2016-03-04 20:07] LABS: ABG Base Excess -4.8 MMOL/L (-2.5-2.5); ABG HCO3 18.8 MMOL/L (20-26); ABG Oxygen Saturation 99.4 % (95-100); ABG PCO2 30.4 MM HG (35-48); ABG PO2 390.2 MM HG (80-95); ABG TCO2 19.8 MMOL/L (23-27); Allen Test Positive; Pt O2 Delivery Device Ventilator
[2016-03-04 20:08] LABS: Calcium 7.9 MG/DL (8.5-10.1); Magnesium 1.9 MG/DL (1.8-2.4); Osmolality,Calculated 287.9 MOS/KG (273-304); Potassium 4.8 MMOL/L (3.5-5.1)
[2016-03-04 20:52] LABS: Lymphocytes 1 % (20-55); Platelet Estimate Normal; Segmented Neutrophils 97 % (50-85); Total Cells Counted 100
[2016-03-04] MEDS: ROSUVASTATIN 20 MG TABLET PO SCH (21:30)
[2016-03-04] MEDS: FUROSEMIDE 40 MG/4 ML VIAL IV SCH (21:30)
[2016-03-04] MEDS: CHLORHEXIDINE 0.12% ORAL RINSE 60 ML BOTTLE SWISH/SPIT SCH (21:31)
--- NOTE | 2016-03-04 21:34 | XRay Report ---
Chest for nasogastric tube placement. The distal tip of the nasogastric tube projects over the antrum of the stomach. PROCEDURE INTERPRETED AT [facility] DEPARTMENT OF RADIOLOGY Final Report Signed by: Dr. Sophie Jerome
[2016-03-05] MEDS: INSULIN LISPRO 100 UNIT/ML SUBCUT SCH ×5 (00:05→23:28)
[2016-03-05] MEDS: ALBUTEROL/IPRATROPIUM 3 ML NEB RESP TX SCH ×7 (00:11→23:47)
[2016-03-05] MEDS: PROPOFOL 1,000 MG/100 ML BOTTLE IV SCH ×4 (02:47→21:28)
[2016-03-05 03:44] LABS: ABG Base Excess -4.1 MMOL/L (-2.5-2.5); ABG Oxygen Saturation 99.3 % (95-100); ABG PCO2 33.5 MM HG (35-48); ABG PH 7.388 (7.35-7.45); Allen Test Positive; Pt O2 Delivery Device Ventilator
[2016-03-05] MEDS: PIPERACILLIN/TAZOBACTAM 3,375 MG in SODIUM CHLORIDE 0.9% 100 ML IV SCH ×3 (05:46→14:06)
[2016-03-05] MEDS ORDERED: CEFUROXIME INJ 1,500 MG in SODIUM CHLORIDE 0.9% 100 ML IV ONE (06:00)
--- NOTE | 2016-03-05 06:26 | EKG Report ---
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
--- NOTE | 2016-03-05 07:14 | XRay Report ---
XR chest 1V portable Indication: Intubated. Chest one view: Since yesterday, endotracheal tube, NG tube, cardiomegaly, hazy bilateral perihilar and left basilar pulmonary opacities are stable. No new densities are seen. Impression: No change. PROCEDURE INTERPRETED AT [facility] DEPARTMENT OF RADIOLOGY Final Report Signed by: Dylan Strange M.D.
[2016-03-05] MEDS ORDERED: FUROSEMIDE 40 MG/4 ML VIAL IV ONE ×2 (08:00→22:00)
--- NOTE | 2016-03-05 08:30 | Nephrology Progress Note ---
Nephrology - PN: Subj Interval history: Patient is intubated and sedate. Physical exam general patient's chronically ill-appearing, heart is regular rate and rhythm, he has no pretibial edema, lungs are clear to auscultation anteriorly, abdomen is soft with positive bowel sounds Assessment/plan 1. Acute renal failure-this patient's creatinine is normal to 3.1 mg/dL from yesterday's value of around 2 mg/dL, he started to have a contrast related injury and injury from his myocardial infarction. His urine output has improved in the past 8 hours or so averaging about 35-40 mL an hour. We will continue to monitor for improvement. 2. Respiratory failure-patient required intubation yesterday evening due to worsening respiratory distress. 3. Coronary artery disease-this patient is being considered for open heart surgery bypass, I discussed his case with Dr. Merida and Dr. Bhatt, will continue his present supportive care and try to optimize the timing of his coronary artery intervention. 4. Anemia-patient's hematocrit went from 40% down to around 32% since admission. We will recheck a CBC in the morning 5. Diabetes mellitus 6. Malnutrition-I'm going to start some tube feeds. Exam (PN)-Nephrology - Vital Signs Vital signs: Period Temp Pulse Resp BP Sys/Cruz Pulse Ox Last 24 Hr 96.4 F-97.6 F 68-93 11-34 95-149/57-97 92-100 - Lab 03/04/16 19:15 03/04/16 19:15 Most recent lab results ABG pH 7.388 (7.35-7.45) 03/05/16 Unknown ABG pCO2 33.5 MM HG (35-48) L 03/05/16 Unknown ABG pO2 186.0 MM HG (80-95) H 03/05/16 Unknown ABG HCO3 21.0 MMOL/L (20-26) 03/05/16 Unknown ABG O2 Saturation 99.3 % (95-100) 03/05/16 Unknown Calcium 7.9 MG/DL (8.5-10.1) L 03/04/16 19:15 Magnesium 1.9 MG/DL (1.8-2.4) 03/04/16 19:15 Assessment and Plan (1) Renal failure Status: Acute Assessment and plan: This patient was admitted with a elevated creatinine of 2.1 mg/dL, his baseline is not known. He was making some urine up until the past 3-4 hours. He is presently getting 40 mg of Lasix IV twice a day without response. I suspect this patient has a acute kidney injury related to his myocardial infarction as well as contrast administration. He may also have some underlying chronic kidney disease related to diabetes and hypertension. At this point if he continues without response to the diuretics I will discontinue these. I would also stopped the MIRACLE inhibitor that is been started. Current Visit: Yes (2) Coronary artery disease Status: Acute Assessment and plan: Patient was admitted with an [place], he is undergone coronary angioplasty, he is being considered for open heart surgery later this week. Current Visit: Yes (3) Diabetes Status: Acute Current Visit: Yes (4) Hypertension Status: Acute Current Visit: Yes (5) Non-STEMI (non-ST elevated myocardial infarction) Status: Acute Current Visit: Yes (6) Status post percutaneous transluminal coronary angioplasty Status: Acute Current Visit: Yes Specialty Discharge - Follow Up or Referrals
[2016-03-05 08:49] LABS: Basophils % 0.2 % (0.0-0.8); Eosinophils % 0.2 % (0.00-10.9); Hematocrit 32.1 VOL% (42.0-52.0); Hemoglobin 10.8 GM/DL (14.0-18.0); Immature Granulocytes % 0.7 %; Immature Granulocytes Absolute 0.13 #; Lymphocytes # 1.5 10*3/uL (1.4-4.0); Lymphocytes % 8.4 % (21.2-54.2); Mean Corpuscular HGB Conc 33.6 GM/DL (32-36); Mean Corpuscular Hemoglobin 26 PG (27-34); Mean Corpuscular Volume 78.1 FL (87-102); Mean Platelet Volume 11.1 FL (9.6-12.0); Monocytes # 1.2 10*3/uL (0.11-0.8); Monocytes % 6.9 % (1.7-12.7); Neutrophils # 14.6 10*3/uL (1.4-7.4); Neutrophils % 83.6 % (38.7-73.9); Platelet Count 284 10*3/uL (130-400); Red Blood Count 4.11 10*6/uL (3.8-5.5); White Blood Count 17.5 10*3/uL (4.5-13.71)
--- NOTE | 2016-03-05 08:59 | Cardiology Progress Note ---
Antonio Morales Vanessa, RN, am scribing for, and in the presence of, José Miguel Staton MD 08:59. Assessment and Plan - Time spent with patient Time spent with patient: Less than 30 minutes (1) Status post percutaneous transluminal coronary angioplasty Status: Acute Assessment and plan: 1. 65-year-old BM with diabetes, dyslipidemia, controlled hypertension, status post non-STEMI with severely reduced LV systolic function (inferior severe hypokinesis with EF of 25%) and three-vessel CAD status post angioplasty of proximal RCA occlusion March 03 with 50-60% residual stenosis 2. Transient oliguria likely related to acute on chronic renal failure related due to heart failure and ZULEYKA; urine output is clearly picking up; creatinine increased to 2.1-3.1 yesterday evening, with no values yet today 3. Continue high intensity statin therapy; wean off dobutamine, given his stable blood pressure, recent VT, and improving renal function; continue Coreg 6.25 mg twice a day 4. Mild aortic stenosis and moderate mitral regurgitation noted echocardiogram 5. Holding Brilinta (last dose yesterday p.m.), as multivessel CABG would be his best option if he stabilizes more; if he does not stabilize sufficiently for surgery, then high risk percutaneous coronary intervention will be considered. Current Visit: Yes (2) Non-STEMI (non-ST elevated myocardial infarction) Status: Acute Current Visit: Yes (3) Diabetes Status: Acute Current Visit: Yes Qualifiers: Diabetes mellitus complication status: with kidney complications Diabetes mellitus complication detail: with nephropathy (4) Hypertension Status: Acute Current Visit: Yes Cardiology - PN: Subj Interval history: Remains in ICU monitored closely. Required intubation yesterday evening for respiratory insufficiency accompanied. Currently doing CPAP trial without distress noted. Also had very minimal to no UOP and IV Dobutamine 5 mcgs/kg/min now in place. Lasix 80 mg IV x 1 given this morning. Negative output noted overnight. Per lab review, TSH 1.54 noted. Cardiac biomarkers continue to trend down. Creatinine with significant increase to 3.1. Exam (Progress Note) - Constitutional Vitals: Period Temp Pulse Resp BP Sys/Cruz Pulse Ox Last 24 Hr 96.4 F-97.6 F 68-93 11-34 95-149/57-97 92-100 General appearance: no acute distress, other (intubated) - Head Head exam: Absent: atraumatic, contusion, laceration - Eye Eye exam: Absent: periorbital swelling Pupils: Absent: dilated, fixed - ENT ENT exam: Present: normal external ear exam - Neck Neck exam: Present: normal inspection - Respiratory Respiratory exam: Present: rales (scattered throughout), wheezes (expiratory with left > right). Absent: stridor - Cardiovascular Cardiovascular exam: Present: regular rate and rhythm (with PVC's), systolic murmur - GI/Abdominal GI/Abdominal exam: Present: normal bowel sounds, soft. Absent: distended, firm - Extremities Exam Extremities exam: Present: other (BUE and BLE palpable and 2+). Absent: full ROM, edema - Neurological Exam Neurological exam: Present: other (sedation in use with mech ventilation; will open eyes, CHONG's weakly, forming words with mouth) - Skin Skin exam: Present: warm, dry Result/EKG - Labs CBC & BMP: 03/05/16 07:16 03/04/16 19:15 Lab Results: I have reviewed the past 24 hour labs Labs: Laboratory Results - last 24 hr 03/04/16 03/04/16 03/04/16 12:03 12:03 12:03 WBC RBC Hgb Hct MCV MCH MCHC RDW Plt Count MPV Neut % (Auto) Lymph % (Auto) [place] % (Auto) Eos % (Auto) Baso % (Auto) Neut # (Auto) Lymph # (Auto) [place] # (Auto) Eos # (Auto) Baso # (Auto) Total Counted Immature Gran % Nucleated RBC % Immature Gran # Segmented Neutrophils Lymphocytes Monocytes Nucleated RBCs # Platelet Estimate Pappenheimer Bodies Circ Anticoag PTT 47.6 H D ABG pH ABG pCO2 ABG pO2 ABG HCO3 ABG Total CO2 ABG O2 Saturation ABG Base Excess FiO2 Sodium Potassium Chloride Carbon Dioxide Anion Gap BUN Creatinine GFR Calculation BUN/Creatinine Ratio Glucose POC Glucose Hemoglobin A1c 9.5 H Calculated Osmolality Calcium Magnesium Total Creatine Kinase CK-MB (CK-2) CK and CKMB Interp Troponin I Free T4 TSH 3rd Generation Blood Type O POSITIVE Antibody Screen Negative 03/04/16 03/04/16 03/04/16 12:08 12:08 12:08 WBC RBC Hgb Hct MCV MCH MCHC RDW Plt Count MPV Neut % (Auto) Lymph % (Auto) [place] % (Auto) Eos % (Auto) Baso % (Auto) Neut # (Auto) Lymph # (Auto) [place] # (Auto) Eos # (Auto) Baso # (Auto) Total Counted Immature Gran % Nucleated RBC % Immature Gran # Segmented Neutrophils Lymphocytes Monocytes Nucleated RBCs # Platelet Estimate Pappenheimer Bodies Circ Anticoag PTT ABG pH ABG pCO2 ABG pO2 ABG HCO3 ABG Total CO2 ABG O2 Saturation ABG Base Excess FiO2 Sodium Potassium Chloride Carbon Dioxide Anion Gap BUN Creatinine GFR Calculation BUN/Creatinine Ratio Glucose POC Glucose Hemoglobin A1c Calculated Osmolality Calcium Magnesium Total Creatine Kinase CK-MB (CK-2) CK and CKMB Interp Troponin I 33.200 H D Free T4 1.54 H TSH 3rd Generation 1.580 Blood Type Antibody Screen 03/04/16 03/04/16 03/04/16 13:54 18:05 18:05 WBC RBC Hgb Hct MCV MCH MCHC RDW Plt Count MPV Neut % (Auto) Lymph % (Auto) [place] % (Auto) Eos % (Auto) Baso % (Auto) Neut # (Auto) Lymph # (Auto) [place] # (Auto) Eos # (Auto) Baso # (Auto) Total Counted Immature Gran % Nucleated RBC % Immature Gran # Segmented Neutrophils Lymphocytes Monocytes Nucleated RBCs # Platelet Estimate Pappenheimer Bodies Circ Anticoag PTT 42.9 H ABG pH 7.406 ABG pCO2 29.3 L ABG pO2 62.5 L ABG HCO3 20.0 ABG Total CO2 16.3 L ABG O2 Saturation 90.7 L ABG Base Excess -5.2 L FiO2 Sodium Potassium Chloride Carbon Dioxide Anion Gap BUN Creatinine GFR Calculation BUN/Creatinine Ratio Glucose POC Glucose 364 H Hemoglobin A1c Calculated Osmolality Calcium Magnesium Total Creatine Kinase CK-MB (CK-2) CK and CKMB Interp Troponin I Free T4 TSH 3rd Generation Blood Type Antibody Screen 03/04/16 03/04/16 03/04/16 19:15 19:15 19:15 WBC 17.3 H RBC 4.12 Hgb 11.1 L Hct 32.7 L MCV 79.4 L MCH 27 MCHC 33.9 RDW 14.0 Plt Count 247 MPV 10.6 Neut % (Auto) 91.6 H Lymph % (Auto) 3.7 L [place] % (Auto) 3.8 Eos % (Auto) 0.0 Baso % (Auto) 0.1 Neut # (Auto) 15.8 H Lymph # (Auto) 0.6 L [place] # (Auto) 0.7 Eos # (Auto) 0.0 Baso # (Auto) 0.0 Total Counted 100 Immature Gran % 0.8 Nucleated RBC % 0.0 Immature Gran # 0.13 Segmented Neutrophils 97 H Lymphocytes 1 L Monocytes 2 Nucleated RBCs # 0.00 Platelet Estimate Normal Pappenheimer Bodies Circ Anticoag PTT ABG pH ABG pCO2 ABG pO2 ABG HCO3 ABG Total CO2 ABG O2 Saturation ABG Base Excess FiO2 Sodium 129 L Potassium 4.8 Chloride 94 L Carbon Dioxide 18 L Anion Gap 21.8 H BUN 53 H D Creatinine 3.10 H GFR Calculation 29 BUN/Creatinine Ratio 17.00 Glucose 380 H POC Glucose Hemoglobin A1c Calculated Osmolality 287.9 Calcium 7.9 L Magnesium 1.9 Total Creatine Kinase 973 H D CK-MB (CK-2) 43.4 H D CK and CKMB Interp 4.5 Troponin I 31.900 H Free T4 TSH 3rd Generation Blood Type Antibody Screen 03/04/16 03/04/16 03/05/16 20:00 23:22 01:32 WBC RBC Hgb Hct MCV MCH MCHC RDW Plt Count MPV Neut % (Auto) Lymph % (Auto) [place] % (Auto) Eos % (Auto) Baso % (Auto) Neut # (Auto) Lymph # (Auto) [place] # (Auto) Eos # (Auto) Baso # (Auto) Total Counted Immature Gran % Nucleated RBC % Immature Gran # Segmented Neutrophils Lymphocytes Monocytes Nucleated RBCs # Platelet Estimate Pappenheimer Bodies Circ Anticoag PTT 41.9 H ABG pH 7.410 ABG pCO2 30.4 L ABG pO2 390.2 H ABG HCO3 18.8 L ABG Total CO2 19.8 L ABG O2 Saturation 99.4 ABG Base Excess -4.8 L FiO2 100.00 Sodium Potassium Chloride Carbon Dioxide Anion Gap BUN Creatinine GFR Calculation BUN/Creatinine Ratio Glucose POC Glucose 202 H Hemoglobin A1c Calculated Osmolality Calcium Magnesium Total Creatine Kinase CK-MB (CK-2) CK and CKMB Interp Troponin I Free T4 TSH 3rd Generation Blood Type Antibody Screen 03/05/16 03/05/16 03/05/16 05:29 07:18 Unknown WBC RBC Hgb Hct MCV MCH MCHC RDW Plt Count MPV Neut % (Auto) Lymph % (Auto) [place] % (Auto) Eos % (Auto) Baso % (Auto) Neut # (Auto) Lymph # (Auto) [place] # (Auto) Eos # (Auto) Baso # (Auto) Total Counted Immature Gran % Nucleated RBC % Immature Gran # Segmented Neutrophils Lymphocytes Monocytes Nucleated RBCs # Platelet Estimate Pappenheimer Bodies Circ Anticoag PTT 41.8 H ABG pH 7.388 ABG pCO2 33.5 L ABG pO2 186.0 H ABG HCO3 21.0 ABG Total CO2 18.0 L ABG O2 Saturation 99.3 ABG Base Excess -4.1 L FiO2 50.00 Sodium Potassium Chloride Carbon Dioxide Anion Gap BUN Creatinine GFR Calculation BUN/Creatinine Ratio Glucose POC Glucose 164 H Hemoglobin A1c Calculated Osmolality Calcium Magnesium Total Creatine Kinase CK-MB (CK-2) CK and CKMB Interp Troponin I Free T4 TSH 3rd Generation Blood Type Antibody Screen - Diagnostic Findings Procedure: Chest x-ray: report reviewed by me (03/05 no significant change; bilateral perihilar and left basilar pulmonary opacities stable.) - EKG EKG results: interpreted by me, no acute changes EKG shows: sinus rhythm (ST depressio noted, occ multifocal PVC) Specialty Discharge - Follow Up or Referrals Brionna Morales Randall Scott, MD, personally performed the services described in this documentation, ascribed by Elba Alvarez RN in my presence, and it is both accurate and complete [id number] .
[2016-03-05 09:06] LABS: Calcium 7.8 MG/DL (8.5-10.1); Osmolality,Calculated 284.5 MOS/KG (273-304); Potassium 3.7 MMOL/L (3.5-5.1)
--- NOTE | 2016-03-05 09:40 | XRay Report ---
Referring Physician: Candelaria Novoa Exam: XR KUB Date: March 05, 2016 at 9:08 AM Reason: Ileus Comparison: Chest one view portable March 05, 2016 Findings: A feeding tube is present with its distal tip within the gastric body. There is no evidence of bowel obstruction or free air. The renal shadows are partially obscured, but no definite renal calculi are identified. Note is made of pelvic phleboliths and scattered arterial calcification. There is degenerative change at the spine and mild degenerative change at both hips. No acute osseous process is seen. Please see the chest x-ray performed today for further details. Impression: There is no evidence of bowel obstruction. PROCEDURE INTERPRETED AT [facility] DEPARTMENT OF RADIOLOGY Final Report Signed by: Dr. Fiorella Fields
[2016-03-05] MEDS: FUROSEMIDE 40 MG/4 ML VIAL IV SCH ×2 (10:37→16:11)
[2016-03-05] MEDS: PANTOPRAZOLE 40 MG TABLET PO SCH (10:40)
[2016-03-05] MEDS: CHLORHEXIDINE 0.12% ORAL RINSE 60 ML BOTTLE SWISH/SPIT SCH ×2 (10:45→21:40)
[2016-03-05] MEDS: CARVEDILOL 6.25 MG TABLET PO SCH ×2 (10:59→21:27)
[2016-03-05] MEDS: ASPIRIN EC 81 MG TABLET PO SCH (10:59)
[2016-03-05] MEDS: ACETYLCYSTEINE 600 MG CAPSULE PO SCH ×2 (10:59→21:29)
[2016-03-05] MEDS: PANTOPRAZOLE 40 MG VIAL IV SCH ×2 (11:00→21:29)
--- NOTE | 2016-03-05 11:03 | Physician Query Form ---
CLICK EDIT DOCUMENT TO SELECT QUERY ANSWER --> OK --> SIGN Shayy Rice RN Clinical Customer Complaint Clerk W) [phone] (f) [phone] [email or web address] PROVIDERS: Make your selection(s) from the choices in EACH section by typing an "x" and enter comments in the comment section. Please use your independent medical judgment in providing your response. This request does not imply that any particular answer is desired or expected. CLINICAL INDICATORS: (Providers should not edit this section) Based on documentation of "history of congestive heart failure with EF off 20%. The patient had an echo today showing EF of 20-25% with moderate mitral regurg. ". Pt. treated with IV Lasix. Please provide further specificity regarding CHF. ACUITY: (x ) Acute ( ) Chronic ( ) Acute on Chronic ( ) Clinicallly unable to determine TYPE: ( x) Systolic ( ) Diastolic ( ) Combined Systolic/Diastolic ( ) Other, please specify: ( ) Clinically unable to determine ( ) The patient does NOT have CHF COMMENTS: Use of terms such as suspected, likely, or probable (associated with a specific diagnosis that is being evaluated, monitored, or treated as if it exists) are acceptable and can be restated in the discharge summary if not ruled out. MTDD
[2016-03-05] MEDS: INSULIN GLARGINE 100 UNIT/ML SUBCUT SCH (11:56)
[2016-03-05] MEDS: NITROGLYCERIN DRIP 50 MG/250 ML BOTTLE IV SCH (15:50)
[2016-03-05] MEDS: HEPARIN 5,000 UNIT/1 ML VIAL IV PRN (15:51)
--- NOTE | 2016-03-05 16:19 | Cardiothoracic Progress Note ---
Assessment and Plan (1) Coronary artery disease Status: Acute Assessment and plan: The pt currently has flash pulmonary edema due to renal shut down as a result fo the cath. Will need to be much better optimized if to be considered for surgery. Will follow. Current Visit: Yes Cardiothoracic Subjective Interval history: Doing better after intubation. Started to trickle urine however still insufficient. Exam (Progress Note) - Constitutional Vitals: Period Temp Pulse Resp BP Sys/Cruz Pulse Ox Last 24 Hr 96.4 F-98.4 F 65-95 11-34 76-149/47-92 92-100 Result/EKG - Labs CBC & BMP: 03/05/16 07:16 03/05/16 07:16 Labs: Laboratory Results - last 24 hr 03/04/16 03/04/16 03/04/16 18:05 18:05 19:15 WBC RBC Hgb Hct MCV MCH MCHC RDW Plt Count MPV Neut % (Auto) Lymph % (Auto) [place] % (Auto) Eos % (Auto) Baso % (Auto) Neut # (Auto) Lymph # (Auto) [place] # (Auto) Eos # (Auto) Baso # (Auto) Total Counted Immature Gran % Nucleated RBC % Immature Gran # Segmented Neutrophils Lymphocytes Monocytes Nucleated RBCs # Platelet Estimate Pappenheimer Bodies Circ Anticoag PTT 42.9 H ABG pH ABG pCO2 ABG pO2 ABG HCO3 ABG Total CO2 ABG O2 Saturation ABG Base Excess FiO2 Sodium Potassium Chloride Carbon Dioxide Anion Gap BUN Creatinine GFR Calculation BUN/Creatinine Ratio Glucose POC Glucose 364 H Calculated Osmolality Calcium Magnesium Total Creatine Kinase 973 H D CK-MB (CK-2) 43.4 H D CK and CKMB Interp 4.5 Troponin I 31.900 H 03/04/16 03/04/16 03/04/16 19:15 19:15 20:00 WBC 17.3 H RBC 4.12 Hgb 11.1 L Hct 32.7 L MCV 79.4 L MCH 27 MCHC 33.9 RDW 14.0 Plt Count 247 MPV 10.6 Neut % (Auto) 91.6 H Lymph % (Auto) 3.7 L [place] % (Auto) 3.8 Eos % (Auto) 0.0 Baso % (Auto) 0.1 Neut # (Auto) 15.8 H Lymph # (Auto) 0.6 L [place] # (Auto) 0.7 Eos # (Auto) 0.0 Baso # (Auto) 0.0 Total Counted 100 Immature Gran % 0.8 Nucleated RBC % 0.0 Immature Gran # 0.13 Segmented Neutrophils 97 H Lymphocytes 1 L Monocytes 2 Nucleated RBCs # 0.00 Platelet Estimate Normal Pappenheimer Bodies Circ Anticoag PTT ABG pH 7.410 ABG pCO2 30.4 L ABG pO2 390.2 H ABG HCO3 18.8 L ABG Total CO2 19.8 L ABG O2 Saturation 99.4 ABG Base Excess -4.8 L FiO2 100.00 Sodium 129 L Potassium 4.8 Chloride 94 L Carbon Dioxide 18 L Anion Gap 21.8 H BUN 53 H D Creatinine 3.10 H GFR Calculation 29 BUN/Creatinine Ratio 17.00 Glucose 380 H POC Glucose Calculated Osmolality 287.9 Calcium 7.9 L Magnesium 1.9 Total Creatine Kinase CK-MB (CK-2) CK and CKMB Interp Troponin I 03/04/16 03/05/16 03/05/16 23:22 01:32 05:29 WBC RBC Hgb Hct MCV MCH MCHC RDW Plt Count MPV Neut % (Auto) Lymph % (Auto) [place] % (Auto) Eos % (Auto) Baso % (Auto) Neut # (Auto) Lymph # (Auto) [place] # (Auto) Eos # (Auto) Baso # (Auto) Total Counted Immature Gran % Nucleated RBC % Immature Gran # Segmented Neutrophils Lymphocytes Monocytes Nucleated RBCs # Platelet Estimate Pappenheimer Bodies Circ Anticoag PTT 41.9 H ABG pH ABG pCO2 ABG pO2 ABG HCO3 ABG Total CO2 ABG O2 Saturation ABG Base Excess FiO2 Sodium Potassium Chloride Carbon Dioxide Anion Gap BUN Creatinine GFR Calculation BUN/Creatinine Ratio Glucose POC Glucose 202 H 164 H Calculated Osmolality Calcium Magnesium Total Creatine Kinase CK-MB (CK-2) CK and CKMB Interp Troponin I 03/05/16 03/05/16 03/05/16 07:16 07:16 07:18 WBC 17.5 H RBC 4.11 Hgb 10.8 L Hct 32.1 L MCV 78.1 L MCH 26 L MCHC 33.6 RDW 14.0 Plt Count 284 MPV 11.1 Neut % (Auto) 83.6 H Lymph % (Auto) 8.4 L [place] % (Auto) 6.9 Eos % (Auto) 0.2 Baso % (Auto) 0.2 Neut # (Auto) 14.6 H Lymph # (Auto) 1.5 [place] # (Auto) 1.2 H Eos # (Auto) 0.0 Baso # (Auto) 0.0 Total Counted Immature Gran % 0.7 Nucleated RBC % 0.0 Immature Gran # 0.13 Segmented Neutrophils Lymphocytes Monocytes Nucleated RBCs # 0.00 Platelet Estimate Pappenheimer Bodies Circ Anticoag PTT 41.8 H ABG pH ABG pCO2 ABG pO2 ABG HCO3 ABG Total CO2 ABG O2 Saturation ABG Base Excess FiO2 Sodium 132 L Potassium 3.7 Chloride 95 L Carbon Dioxide 20 L Anion Gap 20.7 H BUN 62 H Creatinine 3.40 H GFR Calculation 26 BUN/Creatinine Ratio 18.00 Glucose 149 H POC Glucose Calculated Osmolality 284.5 Calcium 7.8 L Magnesium 2.0 Total Creatine Kinase CK-MB (CK-2) CK and CKMB Interp Troponin I 03/05/16 03/05/16 03/05/16 12:04 14:50 Unknown WBC RBC Hgb Hct MCV MCH MCHC RDW Plt Count MPV Neut % (Auto) Lymph % (Auto) [place] % (Auto) Eos % (Auto) Baso % (Auto) Neut # (Auto) Lymph # (Auto) [place] # (Auto) Eos # (Auto) Baso # (Auto) Total Counted Immature Gran % Nucleated RBC % Immature Gran # Segmented Neutrophils Lymphocytes Monocytes Nucleated RBCs # Platelet Estimate Pappenheimer Bodies Circ Anticoag PTT 39.9 ABG pH 7.388 ABG pCO2 33.5 L ABG pO2 186.0 H ABG HCO3 21.0 ABG Total CO2 18.0 L ABG O2 Saturation 99.3 ABG Base Excess -4.1 L FiO2 50.00 Sodium Potassium Chloride Carbon Dioxide Anion Gap BUN Creatinine GFR Calculation BUN/Creatinine Ratio Glucose POC Glucose 135 H Calculated Osmolality Calcium Magnesium Total Creatine Kinase CK-MB (CK-2) CK and CKMB Interp Troponin I Specialty Discharge - Follow Up or Referrals
[2016-03-05] MEDS ORDERED: ALBUMIN 5% 12.5 GM in PREMIX 1 EACH IV ONE (20:06)
--- NOTE | 2016-03-05 20:13 | Hospitalist Progress Note ---
Assessment and Plan (1) Non-STEMI (non-ST elevated myocardial infarction) Status: Acute Assessment and plan: Multisystem failure. No CABG planned right now Current Visit: Yes (2) Hypertension Status: Acute Assessment and plan: controlled Current Visit: Yes (3) Diabetes mellitus with diabetic nephropathy Status: Acute Assessment and plan: ISC,intubated and diminished bowel sounds, consider feedings tomorrow concerned about ileus Current Visit: Yes (4) Ischemic cardiomyopathy Status: Acute Assessment and plan: echo ef 25% post MN,not responding to lasix Current Visit: Yes (5) Renal failure Status: Acute Assessment and plan: worsening renal failure due to cath and heart failure, Dr Acosta consulting Current Visit: Yes (6) Leukocytosis Status: Acute Assessment and plan: cxr suggestive of pneumonia and chf, zosyn and levaquin, blood cx negative. Current Visit: Yes Hospitalist: Subjective Interval history: Patient intubated for respiratory distress. Patient has bile coming out of NG, diminished bowel sounds. Worsening renal function overnight. Suctioning bright red blood out of his mouth. Patient not responding to lasix. Critical care time 45 minutes Exam - Constitutional Vitals: Period Temp Pulse Resp BP Sys/Cruz Pulse Ox Last 24 Hr 96.7 F-98.4 F 65-95 12-21 76-149/47-90 98-100 Exam: HR-RRR lungs-coarse and crackles GI-diminished bowel sounds, nontender ext no edema Neuro sedated and intubated psych sedated and intubated Results - Labs CBC & BMP: 03/05/16 07:16 03/05/16 07:16 Lab Results: I have reviewed the past 24 hour labs Labs: blood cx negative - Diagnostic Findings Procedure: Chest x-ray: report reviewed by me (bilateral edema vs pneumonia), KUB x-ray: report reviewed by me (no obstruction) Specialty Discharge - Follow Up or Referrals
[2016-03-05] MEDS: ROSUVASTATIN 20 MG TABLET PO SCH (21:27)
[2016-03-05] MEDS: ENOXAPARIN 100 MG/ML SYRINGE SUBCUT SCH (21:27)
[2016-03-06] MEDS: PIPERACILLIN/TAZOBACTAM 3,375 MG in SODIUM CHLORIDE 0.9% 100 ML IV SCH ×5 (02:19→14:37)
[2016-03-06] MEDS: ALBUTEROL/IPRATROPIUM 3 ML NEB RESP TX SCH ×6 (03:45→23:39)
[2016-03-06 04:40] LABS: Basophils % 0.1 % (0.0-0.8); Eosinophils % 0.1 % (0.00-10.9); Hematocrit 32.6 VOL% (42.0-52.0); Hemoglobin 10.8 GM/DL (14.0-18.0); Immature Granulocytes % 0.8 %; Immature Granulocytes Absolute 0.11 #; Lymphocytes # 0.9 10*3/uL (1.4-4.0); Lymphocytes % 6.5 % (21.2-54.2); Mean Corpuscular HGB Conc 33.1 GM/DL (32-36); Mean Corpuscular Hemoglobin 26 PG (27-34); Mean Corpuscular Volume 78.2 FL (87-102); Mean Platelet Volume 11.4 FL (9.6-12.0); Monocytes # 0.8 10*3/uL (0.11-0.8); Monocytes % 6.2 % (1.7-12.7); NRBC # 0.02 10*3/uL; Neutrophils # 11.7 10*3/uL (1.4-7.4); Neutrophils % 86.3 % (38.7-73.9); Platelet Count 277 10*3/uL (130-400); Red Blood Count 4.17 10*6/uL (3.8-5.5); Red Cell Distribution Width 14.1 % (9.3-17.3); White Blood Count 13.6 10*3/uL (4.5-13.71)
[2016-03-06 05:18] LABS: Calcium 7.9 MG/DL (8.5-10.1); Magnesium 2.1 MG/DL (1.8-2.4); Osmolality,Calculated 281.8 MOS/KG (273-304); Potassium 4.2 MMOL/L (3.5-5.1)
[2016-03-06 05:25] LABS: Phosphorous 6.8 MG/DL (2.5-4.9); Prealbumin 11.4 MG/DL (20-40)
[2016-03-06] MEDS: INSULIN LISPRO 100 UNIT/ML SUBCUT SCH ×3 (05:49→18:02)
[2016-03-06 06:19] LABS: ABG Base Excess -6.5 MMOL/L (-2.5-2.5); ABG HCO3 19.1 MMOL/L (20-26); ABG Oxygen Saturation 99.5 % (95-100); ABG PCO2 26.4 MM HG (35-48); ABG PH 7.412 (7.35-7.45); ABG TCO2 15.2 MMOL/L (23-27); Allen Test Positive; Pt O2 Delivery Device Ventilator
--- NOTE | 2016-03-06 07:15 | XRay Report ---
XR chest 1V portable Indication: Shortness of breath. Chest one view: Since yesterday, endotracheal tube, NG tube, cardiomegaly, calcified atheromatous disease the aorta and significantly coarsened interstitial markings of lungs are stable. Left perihilar lung is better aerated. Left lung base remains obscured. Impression: Minimally improved aeration left perihilar lung. PROCEDURE INTERPRETED AT [facility] DEPARTMENT OF RADIOLOGY Final Report Signed by: Dylan Strange M.D.
[2016-03-06] MEDS ORDERED: LACTULOSE 20 GM/30 ML UDCUP PO PRN (08:20)
[2016-03-06] MEDS: PANTOPRAZOLE 40 MG TABLET PO SCH (08:31)
--- NOTE | 2016-03-06 08:35 | Cardiology Progress Note ---
Antonio Morales Vanessa, RN, am scribing for, and in the presence of, José Miguel Staton MD 08:35. Assessment and Plan - Time spent with patient Time spent with patient: Less than 30 minutes (1) Status post percutaneous transluminal coronary angioplasty Status: Acute Assessment and plan: 03/05/16: 1. 65-year-old BM with diabetes, dyslipidemia, controlled hypertension, status post non-STEMI with severely reduced LV systolic function (inferior severe hypokinesis with EF of 25%) and three-vessel CAD status post angioplasty of proximal RCA occlusion March 03 with 50-60% residual stenosis 2. Transient oliguria likely related to acute on chronic renal failure related due to heart failure and ZULEYKA; urine output is clearly picking up; creatinine increased to 2.1-3.1 yesterday evening, with no values yet today 3. Continue high intensity statin therapy; wean off dobutamine, given his stable blood pressure, recent IA, and improving renal function; continue Coreg 6.25 mg twice a day 4. Mild aortic stenosis and moderate mitral regurgitation noted echocardiogram 5. Holding Brilinta (last dose yesterday p.m.), as multivessel CABG would be his best option if he stabilizes more; if he does not stabilize sufficiently for surgery, then high risk percutaneous coronary intervention will be considered. March 06 update: 1. Mr. Cameron looks much better this morning, and is nodding his head that he wants to be off ventilator 2. Creatinine is elevated to just over 4 today, but his urine output has been good; would hold Lasix for now given his ZULEYKA, and worsening creatinine 3. He is been on Brilinta since March 04 p.m. 4. Multivessel CABG would be his best option for revascularization, if his renal function stabilizes, etc. 5. Diabetic patient with severe ischemic cardiomyopathy status post non-STEMI and proximal RCA angioplasty March 03 with three-vessel disease and reasonable targets. Current Visit: Yes (2) Non-STEMI (non-ST elevated myocardial infarction) Status: Acute Current Visit: Yes (3) Diabetes Status: Acute Current Visit: Yes Qualifiers: Diabetes mellitus complication status: with kidney complications Diabetes mellitus complication detail: with nephropathy (4) Hypertension Status: Acute Current Visit: Yes Cardiology - PN: Subj Interval history: Intubated in ICU. Sedation is being held in preparation for extubation later this morning. Awake and alert, appropriate, CHONG's. IV Dobutamine and TNG infusions have been discontinued. Some hypotension overnight with SBP 80's-90' s. Currently 105/69. SR with HR in 60's, ST depression seen. No acute changes in EKG. Per nursing staff report, UOP has improved somewhat with output 30-50 ml 's/hr. Creatinine, though, has continued to significantly increase, and is up to 4.2 today from 3.4 yesterday. Baseline on admission was 2.1. Being diuresed with IV Lasix 40 mg BID. Exam (Progress Note) - Constitutional Vitals: Period Temp Pulse Resp BP Sys/Cruz Pulse Ox Last 24 Hr 97.2 F-98.3 F 65-95 10-21 76-121/47-85 98-100 General appearance: no acute distress, other (intubated) - Head Head exam: Present: normocephalic. Absent: contusion - Eye Eye exam: Absent: periorbital swelling Pupils: Present: EWA - ENT ENT exam: Present: normal external ear exam - Neck Neck exam: Absent: tenderness - Respiratory Respiratory exam: Present: rales (scattered throughout; improving. ), wheezes ( fine wheezes mid lung narayan.) - Cardiovascular Cardiovascular exam: Present: regular rate and rhythm. Absent: bradycardia, tachycardia - GI/Abdominal GI/Abdominal exam: Present: normal bowel sounds, soft. Absent: ascites, firm, mass - Extremities Exam Extremities exam: Absent: full ROM, edema - Neurological Exam Neurological exam: Present: other (intubated; does respond, makes eye contact, CHONG's, shakes head "yes" and "no" appropriately in response to questions) - Skin Skin exam: Present: warm, dry. Absent: cyanosis, diaphoretic Result/EKG - Labs CBC & BMP: 03/06/16 03:30 03/06/16 03:30 Lab Results: I have reviewed the past 24 hour labs Labs: Laboratory Results - last 24 hr 03/05/16 03/05/16 03/05/16 07:16 07:16 12:04 WBC 17.5 H RBC 4.11 Hgb 10.8 L Hct 32.1 L MCV 78.1 L MCH 26 L MCHC 33.6 RDW 14.0 Plt Count 284 MPV 11.1 Neut % (Auto) 83.6 H Lymph % (Auto) 8.4 L [place] % (Auto) 6.9 Eos % (Auto) 0.2 Baso % (Auto) 0.2 Neut # (Auto) 14.6 H Lymph # (Auto) 1.5 [place] # (Auto) 1.2 H Eos # (Auto) 0.0 Baso # (Auto) 0.0 Immature Gran % 0.7 Nucleated RBC % 0.0 Immature Gran # 0.13 Nucleated RBCs # 0.00 Circ Anticoag PTT ABG pH ABG pCO2 ABG pO2 ABG HCO3 ABG Total CO2 ABG O2 Saturation ABG Base Excess FiO2 Sodium 132 L Potassium 3.7 Chloride 95 L Carbon Dioxide 20 L Anion Gap 20.7 H BUN 62 H Creatinine 3.40 H GFR Calculation 26 BUN/Creatinine Ratio 18.00 Glucose 149 H POC Glucose 135 H Calculated Osmolality 284.5 Calcium 7.8 L Phosphorus Magnesium 2.0 Prealbumin 03/05/16 03/05/16 03/05/16 14:50 17:58 23:09 WBC RBC Hgb Hct MCV MCH MCHC RDW Plt Count MPV Neut % (Auto) Lymph % (Auto) [place] % (Auto) Eos % (Auto) Baso % (Auto) Neut # (Auto) Lymph # (Auto) [place] # (Auto) Eos # (Auto) Baso # (Auto) Immature Gran % Nucleated RBC % Immature Gran # Nucleated RBCs # Circ Anticoag PTT 39.9 ABG pH ABG pCO2 ABG pO2 ABG HCO3 ABG Total CO2 ABG O2 Saturation ABG Base Excess FiO2 Sodium Potassium Chloride Carbon Dioxide Anion Gap BUN Creatinine GFR Calculation BUN/Creatinine Ratio Glucose POC Glucose 177 H 140 H Calculated Osmolality Calcium Phosphorus Magnesium Prealbumin 03/06/16 03/06/16 03/06/16 03:30 03:30 03:30 WBC 13.6 RBC 4.17 Hgb 10.8 L Hct 32.6 L MCV 78.2 L MCH 26 L MCHC 33.1 RDW 14.1 Plt Count 277 MPV 11.4 Neut % (Auto) 86.3 H Lymph % (Auto) 6.5 L [place] % (Auto) 6.2 Eos % (Auto) 0.1 Baso % (Auto) 0.1 Neut # (Auto) 11.7 H Lymph # (Auto) 0.9 L [place] # (Auto) 0.8 Eos # (Auto) 0.0 Baso # (Auto) 0.0 Immature Gran % 0.8 Nucleated RBC % 0.1 Immature Gran # 0.11 Nucleated RBCs # 0.02 Circ Anticoag PTT 39.5 ABG pH ABG pCO2 ABG pO2 ABG HCO3 ABG Total CO2 ABG O2 Saturation ABG Base Excess FiO2 Sodium 130 L Potassium 4.2 Chloride 94 L Carbon Dioxide 17 L Anion Gap 23.2 H BUN 67 H Creatinine 4.20 H GFR Calculation 20 BUN/Creatinine Ratio 15.00 Glucose 144 H POC Glucose Calculated Osmolality 281.8 Calcium 7.9 L Phosphorus Magnesium 2.1 Prealbumin 03/06/16 03/06/16 03/06/16 03:30 05:27 06:19 WBC RBC Hgb Hct MCV MCH MCHC RDW Plt Count MPV Neut % (Auto) Lymph % (Auto) [place] % (Auto) Eos % (Auto) Baso % (Auto) Neut # (Auto) Lymph # (Auto) [place] # (Auto) Eos # (Auto) Baso # (Auto) Immature Gran % Nucleated RBC % Immature Gran # Nucleated RBCs # Circ Anticoag PTT ABG pH 7.412 ABG pCO2 26.4 L ABG pO2 176.0 H ABG HCO3 19.1 L ABG Total CO2 15.2 L ABG O2 Saturation 99.5 ABG Base Excess -6.5 L FiO2 40.00 Sodium Potassium Chloride Carbon Dioxide Anion Gap BUN Creatinine GFR Calculation BUN/Creatinine Ratio Glucose POC Glucose 150 H Calculated Osmolality Calcium Phosphorus 6.8 H Magnesium Prealbumin 11.4 L - Diagnostic Findings Procedure: Chest x-ray: report reviewed by me (03/06 minimal improved aeration left perihilar lung) - EKG EKG results: interpreted by me EKG shows: sinus rhythm (pulse 60's, ST depression) Specialty Discharge - Follow Up or Referrals Brionna Morales Randall Scott, MD, personally performed the services described in this documentation, ascribed by Elba Alvarez RN in my presence, and it is both accurate and complete 835 .
[2016-03-06] MEDS: ASPIRIN EC 81 MG TABLET PO SCH (08:45)
[2016-03-06] MEDS: ACETYLCYSTEINE 600 MG CAPSULE PO SCH ×2 (08:45→22:51)
[2016-03-06] MEDS: CHLORHEXIDINE 0.12% ORAL RINSE 60 ML BOTTLE SWISH/SPIT SCH ×2 (08:45→22:52)
[2016-03-06] MEDS: PANTOPRAZOLE 40 MG VIAL IV SCH ×2 (08:45→22:50)
[2016-03-06] MEDS: CARVEDILOL 6.25 MG TABLET PO SCH ×2 (08:45→22:51)
[2016-03-06] MEDS: FUROSEMIDE 40 MG/4 ML VIAL IV SCH (08:56)
[2016-03-06] MEDS: MORPHINE 2 MG/1 ML SYRINGE IV PRN (09:54)
[2016-03-06] MEDS ORDERED: LACTULOSE 20 GM/30 ML UDCUP PO SCH (10:00)
--- NOTE | 2016-03-06 10:21 | Hospitalist Progress Note ---
Assessment and Plan (1) Non-STEMI (non-ST elevated myocardial infarction) Status: Acute Assessment and plan: Extubating today. Dr. Miles Mehta will determine when appropriate for CABG Current Visit: Yes (2) Hypertension Status: Acute Assessment and plan: controlled, Current Visit: Yes (3) Diabetes mellitus with diabetic nephropathy Status: Acute Assessment and plan: ISC, patient will be extubated today and started back on a diabetic diet. Will monitor sugars. And restart insulin when appropriate Current Visit: Yes (4) Ischemic cardiomyopathy Status: Acute Assessment and plan: echo ef 25% post [place], responding to Lasix. Current Visit: Yes (5) Renal failure Status: Acute Assessment and plan: Creatinine is rising but his urine output is improving Current Visit: Yes (6) Leukocytosis Status: Acute Assessment and plan: cxr suggestive of pneumonia and chf, continue Zosyn and levaquin, blood cx negative. White count down to 13.6. Not sure if this is a stress response or infection Current Visit: Yes Hospitalist: Subjective Interval history: Patient looks good today will be extubated. Kidneys have started working in response to Lasix even though his creatinine has risen. Patient awake and alert and able to follow all my commands today. Exam - Constitutional Vitals: Period Temp Pulse Resp BP Sys/Cruz Pulse Ox Last 24 Hr 97.2 F-98.3 F 65-94 10-21 76-119/47-85 98-100 Exam: HR-RRR lungs-clear GI-positive bowel sounds, nontender ext no edema Neuro motor 5 out of 5, alert and oriented 2 psych normal mood and affect Results - Labs CBC & BMP: 03/06/16 03:30 03/06/16 03:30 Lab Results: I have reviewed the past 24 hour labs Labs: Blood cultures 2 negative - Diagnostic Findings Procedure: Chest x-ray: report reviewed by me (Improved aeration of the left hilar lung) Specialty Discharge - Follow Up or Referrals
[2016-03-06] MEDS: NITROGLYCERIN DRIP 50 MG/250 ML BOTTLE IV SCH (12:01)
--- NOTE | 2016-03-06 15:27 | Nephrology Progress Note ---
Nephrology - PN: Subj Interval history: Patient is extubated today. Heart he denies any chest pain. Review of systems GI he denies nausea or vomiting Physical exam general patient's chronically ill-appearing, he has no pitting edema Assessment/plan 1. Acute renal failure-patient's urine output continues to improve however his creatinine continues to climb it is 4.2 from 3.4 mg/dL yesterday we'll continue monitor this for improvement 2. Coronary artery disease-patient status post stent placement to one of his coronary arteries, he is being considered for open heart surgery early next week. 3. Diabetes mellitus 4. Acute myocardial infarction 5. Metabolic acidosis-I'm going to start him on sodium bicarbonate 1300 mg by mouth twice a day Exam (PN)-Nephrology - Vital Signs Vital signs: Period Temp Pulse Resp BP Sys/Cruz Pulse Ox Last 24 Hr 97.2 F-98.3 F 66-87 10-23 83-119/54-85 98-100 - Lab 03/06/16 03:30 03/06/16 03:30 Most recent lab results ABG pH 7.412 (7.35-7.45) 03/06/16 06:19 ABG pCO2 26.4 MM HG (35-48) L 03/06/16 06:19 ABG pO2 176.0 MM HG (80-95) H 03/06/16 06:19 ABG HCO3 19.1 MMOL/L (20-26) L 03/06/16 06:19 ABG O2 Saturation 99.5 % (95-100) 03/06/16 06:19 Calcium 7.9 MG/DL (8.5-10.1) L 03/06/16 03:30 Phosphorus 6.8 MG/DL (2.5-4.9) H 03/06/16 03:30 Magnesium 2.1 MG/DL (1.8-2.4) 03/06/16 03:30 Assessment and Plan (1) Renal failure Status: Acute Assessment and plan: This patient was admitted with a elevated creatinine of 2.1 mg/dL, his baseline is not known. He was making some urine up until the past 3-4 hours. He is presently getting 40 mg of Lasix IV twice a day without response. I suspect this patient has a acute kidney injury related to his myocardial infarction as well as contrast administration. He may also have some underlying chronic kidney disease related to diabetes and hypertension. At this point if he continues without response to the diuretics I will discontinue these. I would also stopped the MIRACLE inhibitor that is been started. Current Visit: Yes (2) Coronary artery disease Status: Acute Assessment and plan: Patient was admitted with an DE, he is undergone coronary angioplasty, he is being considered for open heart surgery later this week. Current Visit: Yes (3) Diabetes Status: Acute Current Visit: Yes Qualifiers: Diabetes mellitus complication status: with kidney complications Diabetes mellitus complication detail: with nephropathy (4) Hypertension Status: Acute Current Visit: Yes (5) Non-STEMI (non-ST elevated myocardial infarction) Status: Acute Current Visit: Yes (6) Status post percutaneous transluminal coronary angioplasty Status: Acute Current Visit: Yes Specialty Discharge - Follow Up or Referrals
[2016-03-06] MEDS: PROPOFOL 1,000 MG/100 ML BOTTLE IV SCH (22:34)
[2016-03-06] MEDS: ROSUVASTATIN 20 MG TABLET PO SCH (22:50)
[2016-03-06] MEDS: SODIUM BICARBONATE 650 MG TABLET PO SCH (22:51)
[2016-03-06] MEDS: ENOXAPARIN 100 MG/ML SYRINGE SUBCUT SCH (22:51)
[2016-03-06] MEDS: LEVOFLOXACIN INJ 750 MG in PREMIX 1 EACH IV SCH (22:52)
[2016-03-07] MEDS: INSULIN LISPRO 100 UNIT/ML SUBCUT SCH ×4 (00:19→18:28)
[2016-03-07] MEDS: PIPERACILLIN/TAZOBACTAM 3,375 MG in SODIUM CHLORIDE 0.9% 100 ML IV SCH ×2 (02:04→14:11)
[2016-03-07] MEDS: ONDANSETRON 4 MG/2 ML VIAL IV PRN ×2 (03:04→18:28)
[2016-03-07 03:48] LABS: ABG Base Excess -4.8 MMOL/L (-2.5-2.5); ABG HCO3 20.4 MMOL/L (20-26); ABG Oxygen Saturation 99.2 % (95-100); ABG PCO2 25.9 MM HG (35-48); ABG TCO2 16.2 MMOL/L (23-27); Allen Test Positive
[2016-03-07] MEDS: ALBUTEROL/IPRATROPIUM 3 ML NEB RESP TX SCH ×6 (04:07→23:22)
[2016-03-07 05:59] LABS: Basophils % 0.1 % (0.0-0.8); Eosinophils # 0.1 10*3/uL (0.0-0.87); Eosinophils % 0.7 % (0.00-10.9); Hematocrit 30.5 VOL% (42.0-52.0); Hemoglobin 10.3 GM/DL (14.0-18.0); Immature Granulocytes % 0.5 %; Immature Granulocytes Absolute 0.04 #; Lymphocytes # 0.7 10*3/uL (1.4-4.0); Lymphocytes % 8.4 % (21.2-54.2); Mean Corpuscular HGB Conc 33.8 GM/DL (32-36); Mean Corpuscular Hemoglobin 26 PG (27-34); Mean Corpuscular Volume 76.8 FL (87-102); Mean Platelet Volume 10.6 FL (9.6-12.0); Monocytes # 0.8 10*3/uL (0.11-0.8); Monocytes % 9.4 % (1.7-12.7); Neutrophils # 7.1 10*3/uL (1.4-7.4); Neutrophils % 80.9 % (38.7-73.9); Platelet Count 271 10*3/uL (130-400); Red Blood Count 3.97 10*6/uL (3.8-5.5); White Blood Count 8.8 10*3/uL (4.5-13.71)
[2016-03-07 06:35] LABS: Calcium 8.1 MG/DL (8.5-10.1); Magnesium 2.4 MG/DL (1.8-2.4); Osmolality,Calculated 290.4 MOS/KG (273-304); Potassium 3.8 MMOL/L (3.5-5.1)
--- NOTE | 2016-03-07 08:22 | Cardiology Progress Note ---
Assessment and Plan - Time spent with patient Time spent with patient: (right groin is without bruit or hematoma) (1) Status post percutaneous transluminal coronary angioplasty Status: Acute Assessment and plan: 03/05/16: 1. 65-year-old BM with diabetes, dyslipidemia, controlled hypertension, status post non-STEMI with severely reduced LV systolic function (inferior severe hypokinesis with EF of 25%) and three-vessel CAD status post angioplasty of proximal RCA occlusion March 03 with 50-60% residual stenosis 2. Transient oliguria likely related to acute on chronic renal failure related due to heart failure and ZULEYKA; urine output is clearly picking up; creatinine increased to 2.1-3.1 yesterday evening, with no values yet today 3. Continue high intensity statin therapy; wean off dobutamine, given his stable blood pressure, recent AL, and improving renal function; continue Coreg 6.25 mg twice a day 4. Mild aortic stenosis and moderate mitral regurgitation noted echocardiogram 5. Holding Brilinta (last dose yesterday p.m.), as multivessel CABG would be his best option if he stabilizes more; if he does not stabilize sufficiently for surgery, then high risk percutaneous coronary intervention will be considered. March 06 update: 1. Mr. Cameron looks much better this morning, and is nodding his head that he wants to be off ventilator 2. Creatinine is elevated to just over 4 today, but his urine output has been good; would hold Lasix for now given his ZULEYKA, and worsening creatinine 3. He is been on Brilinta since March 04 p.m. 4. Multivessel CABG would be his best option for revascularization, if his renal function stabilizes, etc. 5. Diabetic patient with severe ischemic cardiomyopathy status post non-STEMI and proximal RCA angioplasty March 03 with three-vessel disease and reasonable targets. March 07 update: 1. Mr. Cameron is doing very well clinically without complaint 2. Fair urine output despite creatinine now above 5; decreased Coreg 3.125 mg twice a day, to hopefully improve renal perfusion 3. Brilinta has been held since March 04, anticipating CABG next week if renal function improves; considering hybrid approach 4. Laxative to avoid significant constipation 5. Transfer to telemetry today Current Visit: Yes (2) Non-STEMI (non-ST elevated myocardial infarction) Status: Acute Current Visit: Yes (3) Diabetes Status: Acute Current Visit: Yes Qualifiers: Diabetes mellitus complication status: with kidney complications Diabetes mellitus complication detail: with nephropathy (4) Hypertension Status: Acute Current Visit: Yes Cardiology - PN: Subj Interval history: Mr. Cameron is clinically doing well with no shortness of breath or chest discomfort. He has no discomfort but has not had a bowel movement in the last couple of days although he isn't eating. Nursing reports she had some back pain yesterday. He has reasonable urine output was creatinine is up today. Exam (Progress Note) - Constitutional Vitals: Period Temp Pulse Resp BP Sys/Cruz Pulse Ox Last 24 Hr 97.6 F-98.2 F 65-81 10-23 85-108/59-70 96-100 General appearance: normal weight, no acute distress - Head Head exam: Present: normal inspection, normocephalic, atraumatic - Neck Neck exam: Present: normal inspection - Respiratory Respiratory exam: Absent: stridor, wheezes - Cardiovascular Cardiovascular exam: Present: regular rate and rhythm. Absent: rubs, systolic murmur - GI/Abdominal GI/Abdominal exam: Present: soft. Absent: tenderness - Extremities Exam Extremities exam: Present: other. Absent: edema Result/EKG - Labs CBC & BMP: 03/07/16 05:47 03/07/16 05:47 Labs: Laboratory Results - last 24 hr 03/06/16 03/06/16 03/06/16 03:25 11:19 15:51 WBC RBC Hgb Hct MCV MCH MCHC RDW Plt Count MPV Neut % (Auto) Lymph % (Auto) [place] % (Auto) Eos % (Auto) Baso % (Auto) Neut # (Auto) Lymph # (Auto) [place] # (Auto) Eos # (Auto) Baso # (Auto) Immature Gran % Nucleated RBC % Immature Gran # Nucleated RBCs # ABG pH ABG pCO2 ABG pO2 ABG HCO3 ABG Total CO2 ABG O2 Saturation ABG Base Excess FiO2 Sodium Potassium Chloride Carbon Dioxide Anion Gap BUN Creatinine GFR Calculation BUN/Creatinine Ratio Glucose POC Glucose 171 H 151 H Calculated Osmolality Calcium Magnesium Random Cortisol 33.7 Blood Type Antibody Screen Crossmatch 03/06/16 03/07/16 03/07/16 17:34 00:04 03:15 WBC RBC Hgb Hct MCV MCH MCHC RDW Plt Count MPV Neut % (Auto) Lymph % (Auto) [place] % (Auto) Eos % (Auto) Baso % (Auto) Neut # (Auto) Lymph # (Auto) [place] # (Auto) Eos # (Auto) Baso # (Auto) Immature Gran % Nucleated RBC % Immature Gran # Nucleated RBCs # ABG pH 7.450 ABG pCO2 25.9 L ABG pO2 134.0 H ABG HCO3 20.4 ABG Total CO2 16.2 L ABG O2 Saturation 99.2 ABG Base Excess -4.8 L FiO2 28.00 Sodium Potassium Chloride Carbon Dioxide Anion Gap BUN Creatinine GFR Calculation BUN/Creatinine Ratio Glucose POC Glucose 199 H 182 H Calculated Osmolality Calcium Magnesium Random Cortisol Blood Type Antibody Screen Crossmatch 03/07/16 03/07/16 03/07/16 05:46 05:47 05:47 WBC 8.8 D RBC 3.97 Hgb 10.3 L Hct 30.5 L MCV 76.8 L MCH 26 L MCHC 33.8 RDW 14.0 Plt Count 271 MPV 10.6 Neut % (Auto) 80.9 H Lymph % (Auto) 8.4 L [place] % (Auto) 9.4 Eos % (Auto) 0.7 Baso % (Auto) 0.1 Neut # (Auto) 7.1 Lymph # (Auto) 0.7 L [place] # (Auto) 0.8 Eos # (Auto) 0.1 Baso # (Auto) 0.0 Immature Gran % 0.5 Nucleated RBC % 0.0 Immature Gran # 0.04 Nucleated RBCs # 0.00 ABG pH ABG pCO2 ABG pO2 ABG HCO3 ABG Total CO2 ABG O2 Saturation ABG Base Excess FiO2 Sodium Potassium Chloride Carbon Dioxide Anion Gap BUN Creatinine GFR Calculation BUN/Creatinine Ratio Glucose POC Glucose 158 H Calculated Osmolality Calcium Magnesium Random Cortisol Blood Type O POSITIVE Antibody Screen Negative Crossmatch See Detail 03/07/16 05:47 WBC RBC Hgb Hct MCV MCH MCHC RDW Plt Count MPV Neut % (Auto) Lymph % (Auto) [place] % (Auto) Eos % (Auto) Baso % (Auto) Neut # (Auto) Lymph # (Auto) [place] # (Auto) Eos # (Auto) Baso # (Auto) Immature Gran % Nucleated RBC % Immature Gran # Nucleated RBCs # ABG pH ABG pCO2 ABG pO2 ABG HCO3 ABG Total CO2 ABG O2 Saturation ABG Base Excess FiO2 Sodium 133 L Potassium 3.8 Chloride 95 L Carbon Dioxide 19 L Anion Gap 22.8 H BUN 78 H Creatinine 5.20 H GFR Calculation 15 BUN/Creatinine Ratio 15.00 Glucose 139 H POC Glucose Calculated Osmolality 290.4 Calcium 8.1 L Magnesium 2.4 Random Cortisol Blood Type Antibody Screen Crossmatch Specialty Discharge - Follow Up or Referrals
[2016-03-07] MEDS: ACETYLCYSTEINE 600 MG CAPSULE PO SCH (08:32)
[2016-03-07] MEDS: SODIUM BICARBONATE 650 MG TABLET PO SCH ×2 (08:33→21:24)
[2016-03-07] MEDS: ASPIRIN EC 81 MG TABLET PO SCH (08:33)
[2016-03-07] MEDS: PANTOPRAZOLE 40 MG VIAL IV SCH ×2 (08:33→21:23)
--- NOTE | 2016-03-07 08:46 | Nephrology Progress Note ---
Nephrology - PN: Subj Interval history: Patient denies chest pain. Review of systems pulmonary denies shortness of breath. Physical exam general the patient is chronically ill-appearing, extremities reveal no edema Assessment/plan 1. Acute renal failure-patient's creatinine increased to 5.2 mg /dL from 4.2 mg/dL today, his urine outputs about 30 mL an hour the past few hours, continue to monitor for improvement, at this point I do not feel that dialysis is indicated. 2. Acute myocardial infarction-management per cardiology 3. Diabetes mellitus this is controlled 4. Metabolic acidosis-we'll continue sodium bicarbonate 5. Anemia-patient's hematocrit is 31% Case was discussed with Dr. Staton Exam (PN)-Nephrology - Vital Signs Vital signs: Period Temp Pulse Resp BP Sys/Cruz Pulse Ox Last 24 Hr 97.6 F-98.2 F 65-81 10-23 85-108/59-70 96-100 - Lab 03/07/16 05:47 03/07/16 05:47 Most recent lab results ABG pH 7.450 (7.35-7.45) 03/07/16 03:15 ABG pCO2 25.9 MM HG (35-48) L 03/07/16 03:15 ABG pO2 134.0 MM HG (80-95) H 03/07/16 03:15 ABG HCO3 20.4 MMOL/L (20-26) 03/07/16 03:15 ABG O2 Saturation 99.2 % (95-100) 03/07/16 03:15 Calcium 8.1 MG/DL (8.5-10.1) L 03/07/16 05:47 Phosphorus 6.8 MG/DL (2.5-4.9) H 03/06/16 03:30 Magnesium 2.4 MG/DL (1.8-2.4) 03/07/16 05:47 Assessment and Plan (1) Renal failure Status: Acute Assessment and plan: This patient was admitted with a elevated creatinine of 2.1 mg/dL, his baseline is not known. He was making some urine up until the past 3-4 hours. He is presently getting 40 mg of Lasix IV twice a day without response. I suspect this patient has a acute kidney injury related to his myocardial infarction as well as contrast administration. He may also have some underlying chronic kidney disease related to diabetes and hypertension. At this point if he continues without response to the diuretics I will discontinue these. I would also stopped the MIRACLE inhibitor that is been started. Current Visit: Yes (2) Coronary artery disease Status: Acute Assessment and plan: Patient was admitted with an RI, he is undergone coronary angioplasty, he is being considered for open heart surgery later this week. Current Visit: Yes (3) Diabetes Status: Acute Current Visit: Yes Qualifiers: Diabetes mellitus complication status: with kidney complications Diabetes mellitus complication detail: with nephropathy (4) Hypertension Status: Acute Current Visit: Yes (5) Non-STEMI (non-ST elevated myocardial infarction) Status: Acute Current Visit: Yes (6) Status post percutaneous transluminal coronary angioplasty Status: Acute Current Visit: Yes Specialty Discharge - Follow Up or Referrals
[2016-03-07] MEDS: DOCUSATE SODIUM 100 MG CAPSULE PO SCH ×2 (08:47→21:10)
[2016-03-07] MEDS: CHLORHEXIDINE 0.12% ORAL RINSE 60 ML BOTTLE SWISH/SPIT SCH ×2 (08:47→21:24)
[2016-03-07] MEDS: PANTOPRAZOLE 40 MG TABLET PO SCH (08:50)
[2016-03-07] MEDS ORDERED: CHLORHEXIDINE 4% SOLN 118 ML BOTTLE TOP SCH (09:00)
--- NOTE | 2016-03-07 11:17 | Hospitalist Progress Note ---
Assessment and Plan (1) Non-STEMI (non-ST elevated myocardial infarction) Status: Acute Assessment and plan: Dr. Miles Mehta and Dr Santos managing, cabg on Friday Current Visit: Yes (2) Diabetes mellitus with diabetic nephropathy Status: Acute Assessment and plan: IS restart lantus 5 units daily Current Visit: Yes (3) Ischemic cardiomyopathy Status: Acute Assessment and plan: echo ef 25% post NH patient's blood pressure is too low to tolerate Lasix at this time. Current Visit: Yes (4) Renal failure Status: Acute Assessment and plan: Creatinine continue to rise but UO holding Current Visit: Yes (5) Leukocytosis Status: Acute Assessment and plan: WBC has returned to normal with IV antibiotics we will continue him on Zosyn and Levaquin treat for pneumonia Current Visit: Yes (6) Hypotension Status: Acute Assessment and plan: due to cardiac function, doubt sepsis and he has responded to abx Current Visit: Yes Hospitalist: Subjective Interval history: Today is up and sitting in the chair and looks good today. He is very weak but we are going to give him a full liquid diet. He was extubated successfully yesterday. Patient is making urine anywhere from 30 mL's to 50 mL's an hour but his creatinine continues to rise. Had BM today Exam - Constitutional Vitals: Period Temp Pulse Resp BP Sys/Cruz Pulse Ox Last 24 Hr 97.3 F-98.2 F 65-81 10-22 85-108/56-72 96-100 Exam: HR-RRR lungs-clear GI-positive bowel sounds, nontender ext no edema Neuro motor 5 out of 5, alert and oriented 3 psych normal mood and affect Results - Labs CBC & BMP: 03/07/16 05:47 03/07/16 05:47 Lab Results: I have reviewed the past 24 hour labs - Diagnostic Findings Procedure: Chest x-ray: report reviewed by me (Improvement in aeration of the left perihilar lung) Specialty Discharge - Follow Up or Referrals
[2016-03-07] MEDS ORDERED: SODIUM CHLORIDE 0.9% 1,000 ML IV SCH (11:30)
[2016-03-07] MEDS: ENOXAPARIN 100 MG/ML SYRINGE SUBCUT SCH (21:24)
[2016-03-07] MEDS: ZALEPLON 5 MG CAPSULE PO PRN (21:24)
[2016-03-07] MEDS: ROSUVASTATIN 20 MG TABLET PO SCH (21:24)
[2016-03-08] MEDS: INSULIN LISPRO 100 UNIT/ML SUBCUT SCH ×4 (00:39→18:16)
[2016-03-08] MEDS: PIPERACILLIN/TAZOBACTAM 3,375 MG in SODIUM CHLORIDE 0.9% 100 ML IV SCH ×2 (02:51→14:56)
[2016-03-08] MEDS: ALBUTEROL/IPRATROPIUM 3 ML NEB RESP TX SCH ×6 (03:13→23:29)
[2016-03-08 03:35] LABS: ABG Base Excess -4.7 MMOL/L (-2.5-2.5); ABG HCO3 20.5 MMOL/L (20-26); ABG Oxygen Saturation 96.3 % (95-100); ABG PCO2 32.1 MM HG (35-48); ABG PH 7.388 (7.35-7.45); Allen Test Positive
[2016-03-08] MEDS: MORPHINE 2 MG/1 ML SYRINGE IV PRN ×3 (03:59→18:14)
[2016-03-08 05:47] LABS: Basophils % 0.1 % (0.0-0.8); Eosinophils # 0.1 10*3/uL (0.0-0.87); Eosinophils % 1.5 % (0.00-10.9); Hemoglobin 9.8 GM/DL (14.0-18.0); Immature Granulocytes % 0.4 %; Immature Granulocytes Absolute 0.03 #; Lymphocytes # 0.9 10*3/uL (1.4-4.0); Lymphocytes % 11.5 % (21.2-54.2); Mean Corpuscular HGB Conc 33.8 GM/DL (32-36); Mean Corpuscular Hemoglobin 26 PG (27-34); Mean Corpuscular Volume 76.9 FL (87-102); Mean Platelet Volume 10.1 FL (9.6-12.0); Neutrophils % 74.5 % (38.7-73.9); Platelet Count 271 10*3/uL (130-400); Red Blood Count 3.77 10*6/uL (3.8-5.5); Red Cell Distribution Width 14.2 % (9.3-17.3); White Blood Count 8.1 10*3/uL (4.5-13.71)
[2016-03-08 06:23] LABS: Calcium 8.2 MG/DL (8.5-10.1); Magnesium 2.6 MG/DL (1.8-2.4); Osmolality,Calculated 296.1 MOS/KG (273-304); Potassium 3.6 MMOL/L (3.5-5.1)
[2016-03-08] MEDS: SODIUM BICARBONATE 650 MG TABLET PO SCH ×2 (08:59→21:04)
[2016-03-08] MEDS: PANTOPRAZOLE 40 MG TABLET PO SCH (08:59)
[2016-03-08] MEDS: DOCUSATE SODIUM 100 MG CAPSULE PO SCH ×2 (08:59→21:04)
[2016-03-08] MEDS: PANTOPRAZOLE 40 MG VIAL IV SCH (09:00)
[2016-03-08] MEDS: CHLORHEXIDINE 0.12% ORAL RINSE 60 ML BOTTLE SWISH/SPIT SCH ×2 (09:00→21:08)
[2016-03-08] MEDS: ASPIRIN EC 81 MG TABLET PO SCH (09:00)
--- NOTE | 2016-03-08 09:02 | Nephrology Progress Note ---
Nephrology - PN: Subj Interval history: Patient denies shortness of breath. Review of systems GI denies nausea or vomiting Physical exam general patient's chronically ill-appearing, extremities reveal no pitting edema Assessment/plan 1. Acute renal failure-this patient's creatinines increased to 5.9 mg/dL from 5.2 mg/dL yesterday, the patient's urine output was 850 mL over 24 hours yesterday. I'm still hopeful that the patient may recover from his acute renal failure related to the contrast and his acute myocardial infarction. Plans are for bypass surgery Friday of next week. If the patient' s kidney function should improve over the weekend I would be inclined to hold on preoperative hemodialysis however placing a hemodialysis intraoperatively in anticipation of a need for hemodialysis postoperatively would seem temple. If the patient's creatinine remains around 5.8 or worsens through the weekend it would be reasonable to place a hemodialysis catheter Friday and administer some preoperative hemodialysis on Friday as well. Of course if this patient's electrolytes or pulmonary status should change acutely for the worse over the weekend dialysis could be administered as needed over the weekend. 2. Metabolic acidosis-I'm going to change this patient's KVO fluids to a bicarbonate containing preparation, I'll continue sodium bicarbonate 1300 mg by mouth twice a day 3. Decreasing potassium-patient's potassium is 3.6.2 give him a couple of doses of 20 mEq of KCl through today. 4. Anemia-patient's hematocrit is 29% this is down a little from around 30% yesterday. We'll continue to monitor this. Patient's case was discussed with Dr. Miles Mehta and with the patient and the patient's . Exam (PN)-Nephrology - Vital Signs Vital signs: Period Temp Pulse Resp BP Sys/Cruz Pulse Ox Last 24 Hr 97.8 F-98.7 F 66-81 10-22 81-117/53-78 97-100 - Lab 03/08/16 05:34 03/08/16 05:34 Most recent lab results ABG pH 7.388 (7.35-7.45) 03/08/16 03:25 ABG pCO2 32.1 MM HG (35-48) L 03/08/16 03:25 ABG pO2 113.0 MM HG (80-95) H 03/08/16 03:25 ABG HCO3 20.5 MMOL/L (20-26) 03/08/16 03:25 ABG O2 Saturation 96.3 % (95-100) 03/08/16 03:25 Calcium 8.2 MG/DL (8.5-10.1) L 03/08/16 05:34 Phosphorus 6.8 MG/DL (2.5-4.9) H 03/06/16 03:30 Magnesium 2.6 MG/DL (1.8-2.4) H 03/08/16 05:34 Assessment and Plan (1) Renal failure Status: Acute Assessment and plan: This patient was admitted with a elevated creatinine of 2.1 mg/dL, his baseline is not known. He was making some urine up until the past 3-4 hours. He is presently getting 40 mg of Lasix IV twice a day without response. I suspect this patient has a acute kidney injury related to his myocardial infarction as well as contrast administration. He may also have some underlying chronic kidney disease related to diabetes and hypertension. At this point if he continues without response to the diuretics I will discontinue these. I would also stopped the MIRACLE inhibitor that is been started. Current Visit: Yes (2) Coronary artery disease Status: Acute Assessment and plan: Patient was admitted with an [facility], he is undergone coronary angioplasty, he is being considered for open heart surgery later this week. Current Visit: Yes (3) Diabetes Status: Acute Current Visit: Yes Qualifiers: Diabetes mellitus complication status: with kidney complications Diabetes mellitus complication detail: with nephropathy (4) Hypertension Status: Acute Current Visit: Yes (5) Non-STEMI (non-ST elevated myocardial infarction) Status: Acute Current Visit: Yes (6) Status post percutaneous transluminal coronary angioplasty Status: Acute Current Visit: Yes Specialty Discharge - Follow Up or Referrals
[2016-03-08] MEDS ORDERED: POTASSIUM CHLORIDE 20 MEQ TABLET PO SCH (09:30)
--- NOTE | 2016-03-08 10:37 | Cardiology Progress Note ---
Assessment and Plan (1) Status post percutaneous transluminal coronary angioplasty Status: Acute Assessment and plan: 03/05/16: 1. 65-year-old BM with diabetes, dyslipidemia, controlled hypertension, status post non-STEMI with severely reduced LV systolic function (inferior severe hypokinesis with EF of 25%) and three-vessel CAD status post angioplasty of proximal RCA occlusion March 03 with 50-60% residual stenosis 2. Transient oliguria likely related to acute on chronic renal failure related due to heart failure and ZULEYKA; urine output is clearly picking up; creatinine increased to 2.1-3.1 yesterday evening, with no values yet today 3. Continue high intensity statin therapy; wean off dobutamine, given his stable blood pressure, recent [place], and improving renal function; continue Coreg 6.25 mg twice a day 4. Mild aortic stenosis and moderate mitral regurgitation noted echocardiogram 5. Holding Brilinta (last dose yesterday p.m.), as multivessel CABG would be his best option if he stabilizes more; if he does not stabilize sufficiently for surgery, then high risk percutaneous coronary intervention will be considered. March 06 update: 1. Mr. Cameron looks much better this morning, and is nodding his head that he wants to be off ventilator 2. Creatinine is elevated to just over 4 today, but his urine output has been good; would hold Lasix for now given his ZULEYKA, and worsening creatinine 3. He is been on Brilinta since March 04 p.m. 4. Multivessel CABG would be his best option for revascularization, if his renal function stabilizes, etc. 5. Diabetic patient with severe ischemic cardiomyopathy status post non-STEMI and proximal RCA angioplasty March 03 with three-vessel disease and reasonable targets. March 07 update: 1. Mr. Cameron is doing very well clinically without complaint 2. Fair urine output despite creatinine now above 5; decreased Coreg 3.125 mg twice a day, to hopefully improve renal perfusion 3. Brilinta has been held since March 04, anticipating CABG next week if renal function improves; considering hybrid approach 4. Laxative to avoid significant constipation 5. Transfer to telemetry today March 08 update: 1. Mr. Cameron continues to do fairly well clinically without angina or symptomatic volume overload 2. Reasonable urine output, but creatinine is still slowly rising above 5; nephrology is following; hemodialysis is being considered Friday if needed prior to CABG 3. Brilinta is held since March 04, anticipating CABG 4. Diabetic patient with severe ischemic cardiomyopathy status post non-STEMI and proximal RCA angioplasty March 03, with probably some degree of ZULEYKA 5. Continue high intensity statin, baby aspirin, and reduced dose Coreg at 3.125 mg twice a day 6. Transfer to the floor later today Current Visit: Yes (2) Non-STEMI (non-ST elevated myocardial infarction) Status: Acute Current Visit: Yes (3) Diabetes Status: Acute Current Visit: Yes Qualifiers: Diabetes mellitus complication status: with kidney complications Diabetes mellitus complication detail: with nephropathy (4) Hypertension Status: Acute Current Visit: Yes Cardiology - PN: Subj Interval history: Mr. Cameron feels well and has no shortness of breath or chest pain. He seems indifferent as to whether to go upstairs, but his family is anxious for this. He said it dizziness or significant dysrhythmias. He has a good urine output but his creatinine is still rising a bit. Exam (Progress Note) - Constitutional Vitals: Period Temp Pulse Resp BP Sys/Cruz Pulse Ox Last 24 Hr 97.8 F-98.7 F 66-81 10-22 81-117/53-78 97-100 General appearance: normal weight, no acute distress - Head Head exam: Present: normal inspection, normocephalic, atraumatic - Neck Neck exam: Present: normal inspection - Respiratory Respiratory exam: Present: rales. Absent: stridor, wheezes - Cardiovascular Cardiovascular exam: Present: regular rate and rhythm. Absent: diastolic murmur (few basilar), rubs - GI/Abdominal GI/Abdominal exam: Present: soft. Absent: tenderness - Extremities Exam Extremities exam: Absent: edema Result/EKG - Labs CBC & BMP: 03/08/16 05:34 03/08/16 05:34 Labs: Laboratory Results - last 24 hr 03/07/16 03/07/16 03/07/16 10:54 16:05 17:43 WBC RBC Hgb Hct MCV MCH MCHC RDW Plt Count MPV Neut % (Auto) Lymph % (Auto) [place] % (Auto) Eos % (Auto) Baso % (Auto) Neut # (Auto) Lymph # (Auto) [place] # (Auto) Eos # (Auto) Baso # (Auto) Immature Gran % Nucleated RBC % Immature Gran # Nucleated RBCs # ABG pH ABG pCO2 ABG pO2 ABG HCO3 ABG Total CO2 ABG O2 Saturation ABG Base Excess FiO2 Sodium Potassium Chloride Carbon Dioxide Anion Gap BUN Creatinine GFR Calculation BUN/Creatinine Ratio Glucose POC Glucose 209 H 134 H 170 H Calculated Osmolality Calcium Magnesium 03/07/16 03/08/16 03/08/16 23:41 03:25 05:33 WBC RBC Hgb Hct MCV MCH MCHC RDW Plt Count MPV Neut % (Auto) Lymph % (Auto) [place] % (Auto) Eos % (Auto) Baso % (Auto) Neut # (Auto) Lymph # (Auto) [place] # (Auto) Eos # (Auto) Baso # (Auto) Immature Gran % Nucleated RBC % Immature Gran # Nucleated RBCs # ABG pH 7.388 ABG pCO2 32.1 L ABG pO2 113.0 H ABG HCO3 20.5 ABG Total CO2 17.0 L ABG O2 Saturation 96.3 ABG Base Excess -4.7 L FiO2 28.00 Sodium Potassium Chloride Carbon Dioxide Anion Gap BUN Creatinine GFR Calculation BUN/Creatinine Ratio Glucose POC Glucose 184 H 153 H Calculated Osmolality Calcium Magnesium 03/08/16 03/08/16 05:34 05:34 WBC 8.1 RBC 3.77 L Hgb 9.8 L Hct 29.0 L MCV 76.9 L MCH 26 L MCHC 33.8 RDW 14.2 Plt Count 271 MPV 10.1 Neut % (Auto) 74.5 H Lymph % (Auto) 11.5 L [place] % (Auto) 12.0 Eos % (Auto) 1.5 Baso % (Auto) 0.1 Neut # (Auto) 6.0 Lymph # (Auto) 0.9 L [place] # (Auto) 1.0 H Eos # (Auto) 0.1 Baso # (Auto) 0.0 Immature Gran % 0.4 Nucleated RBC % 0.0 Immature Gran # 0.03 Nucleated RBCs # 0.00 ABG pH ABG pCO2 ABG pO2 ABG HCO3 ABG Total CO2 ABG O2 Saturation ABG Base Excess FiO2 Sodium 135 L Potassium 3.6 Chloride 97 L Carbon Dioxide 18 L Anion Gap 23.6 H BUN 83 H Creatinine 5.90 H GFR Calculation 13 BUN/Creatinine Ratio 14.00 Glucose 143 H POC Glucose Calculated Osmolality 296.1 Calcium 8.2 L Magnesium 2.6 H Specialty Discharge - Follow Up or Referrals
[2016-03-08] MEDS: POTASSIUM CHLORIDE 20 MEQ TABLET PO SCH ×3 (11:30→21:05)
[2016-03-08] MEDS: SODIUM BICARB INJ 150 MEQ in STERILE WATER INJ 850 ML IV SCH (11:31)
--- NOTE | 2016-03-08 12:10 | Cardiothoracic Progress Note ---
Assessment and Plan - Time spent with patient Time spent with patient: Greater than 30 minutes (1) Coronary artery disease Status: Acute Assessment and plan: Multiple discussions with Dr. Staton, Dr. Santos, and the rest of the cardiology group, led to the decision that I will proceed with high risk single vessel Bypass on Friday, ARAUJO-LAD, then DR. Santos will plan on stenting right side on a later maura. I discussed the issues with the family, explained this will be a very high risk procedure however it will provide him with the best chance. They understand and willing to proceed. Current Visit: Yes Cardiothoracic Subjective Interval history: Doing better today, got out of bed. Continues to have low UOP, high Cr. Exam (Progress Note) - Constitutional Vitals: Period Temp Pulse Resp BP Sys/Cruz Pulse Ox Last 24 Hr 97.8 F-98.7 F 66-81 10-21 86-117/53-78 97-100 Result/EKG - Labs CBC & BMP: 03/08/16 05:34 03/08/16 05:34 Labs: Laboratory Results - last 24 hr 03/07/16 03/07/16 03/07/16 16:05 17:43 23:41 WBC RBC Hgb Hct MCV MCH MCHC RDW Plt Count MPV Neut % (Auto) Lymph % (Auto) [place] % (Auto) Eos % (Auto) Baso % (Auto) Neut # (Auto) Lymph # (Auto) [place] # (Auto) Eos # (Auto) Baso # (Auto) Immature Gran % Nucleated RBC % Immature Gran # Nucleated RBCs # ABG pH ABG pCO2 ABG pO2 ABG HCO3 ABG Total CO2 ABG O2 Saturation ABG Base Excess FiO2 Sodium Potassium Chloride Carbon Dioxide Anion Gap BUN Creatinine GFR Calculation BUN/Creatinine Ratio Glucose POC Glucose 134 H 170 H 184 H Calculated Osmolality Calcium Magnesium 03/08/16 03/08/16 03/08/16 03:25 05:33 05:34 WBC 8.1 RBC 3.77 L Hgb 9.8 L Hct 29.0 L MCV 76.9 L MCH 26 L MCHC 33.8 RDW 14.2 Plt Count 271 MPV 10.1 Neut % (Auto) 74.5 H Lymph % (Auto) 11.5 L [place] % (Auto) 12.0 Eos % (Auto) 1.5 Baso % (Auto) 0.1 Neut # (Auto) 6.0 Lymph # (Auto) 0.9 L [place] # (Auto) 1.0 H Eos # (Auto) 0.1 Baso # (Auto) 0.0 Immature Gran % 0.4 Nucleated RBC % 0.0 Immature Gran # 0.03 Nucleated RBCs # 0.00 ABG pH 7.388 ABG pCO2 32.1 L ABG pO2 113.0 H ABG HCO3 20.5 ABG Total CO2 17.0 L ABG O2 Saturation 96.3 ABG Base Excess -4.7 L FiO2 28.00 Sodium Potassium Chloride Carbon Dioxide Anion Gap BUN Creatinine GFR Calculation BUN/Creatinine Ratio Glucose POC Glucose 153 H Calculated Osmolality Calcium Magnesium 03/08/16 05:34 WBC RBC Hgb Hct MCV MCH MCHC RDW Plt Count MPV Neut % (Auto) Lymph % (Auto) [place] % (Auto) Eos % (Auto) Baso % (Auto) Neut # (Auto) Lymph # (Auto) [place] # (Auto) Eos # (Auto) Baso # (Auto) Immature Gran % Nucleated RBC % Immature Gran # Nucleated RBCs # ABG pH ABG pCO2 ABG pO2 ABG HCO3 ABG Total CO2 ABG O2 Saturation ABG Base Excess FiO2 Sodium 135 L Potassium 3.6 Chloride 97 L Carbon Dioxide 18 L Anion Gap 23.6 H BUN 83 H Creatinine 5.90 H GFR Calculation 13 BUN/Creatinine Ratio 14.00 Glucose 143 H POC Glucose Calculated Osmolality 296.1 Calcium 8.2 L Magnesium 2.6 H Specialty Discharge - Follow Up or Referrals
--- NOTE | 2016-03-08 12:45 | Hospitalist Progress Note ---
Assessment and Plan (1) Non-STEMI (non-ST elevated myocardial infarction) Status: Acute Assessment and plan: Dr. Miles Mehta and Dr Santos managing, cabg on Friday Current Visit: Yes (2) Diabetes mellitus with diabetic nephropathy Status: Acute Assessment and plan: IS restart lantus 5 units daily Current Visit: Yes (3) Ischemic cardiomyopathy Status: Acute Assessment and plan: echo ef 25% post PR patient's blood pressure is too low to tolerate Lasix at this time. Current Visit: Yes (4) Renal failure Status: Acute Assessment and plan: Creatinine continue to rise but UO holding Current Visit: Yes (5) Leukocytosis Status: Acute Assessment and plan: WBC has returned to normal with IV antibiotics we will continue him on Zosyn and Levaquin treat for pneumonia Current Visit: Yes (6) Hypotension Status: Acute Assessment and plan: improving Current Visit: Yes Hospitalist: Subjective Interval history: We will try to get his Serrano out today. I am concerned about risk of infection. We will still monitor his urine output carefully. Patient is weak but is eating. Patient to get CABG on Friday. Exam - Constitutional Vitals: Period Temp Pulse Resp BP Sys/Cruz Pulse Ox Last 24 Hr 97.7 F-98.7 F 66-81 10-22 86-117/53-78 97-100 Exam: HR-RRR lungs-clear GI-positive bowel sounds, nontender ext no edema Neuro motor 5 out of 5, alert and oriented 3 psych normal mood and affect Results - Labs CBC & BMP: 03/08/16 05:34 03/08/16 05:34 Lab Results: I have reviewed the past 24 hour labs Labs: Blood cultures 2 negative Specialty Discharge - Follow Up or Referrals
[2016-03-08] MEDS: INSULIN GLARGINE 100 UNIT/ML SUBCUT SCH (13:26)
[2016-03-08] MEDS: ACETAMINOPHEN/CODEINE 300-30 MG TABLET PO PRN ×2 (16:06→21:06)
[2016-03-08] MEDS: SIMETHICONE CHEW 125 MG TABLET PO PRN (18:16)
[2016-03-08] MEDS: LEVOFLOXACIN INJ 750 MG in PREMIX 1 EACH IV SCH (21:03)
[2016-03-08] MEDS: ROSUVASTATIN 20 MG TABLET PO SCH (21:04)
[2016-03-08] MEDS: CARVEDILOL 3.125 MG TABLET PO SCH (21:05)
[2016-03-08] MEDS: ENOXAPARIN 100 MG/ML SYRINGE SUBCUT SCH (21:05)
[2016-03-09] MEDS: INSULIN LISPRO 100 UNIT/ML SUBCUT SCH ×4 (01:18→17:27)
[2016-03-09] MEDS: PIPERACILLIN/TAZOBACTAM 3,375 MG in SODIUM CHLORIDE 0.9% 100 ML IV SCH ×2 (02:10→15:43)
[2016-03-09] MEDS: ALBUTEROL/IPRATROPIUM 3 ML NEB RESP TX SCH ×5 (03:45→21:10)
[2016-03-09 07:46] LABS: Basophils % 0.1 % (0.0-0.8); Eosinophils # 0.1 10*3/uL (0.0-0.87); Eosinophils % 1.3 % (0.00-10.9); Hematocrit 30.1 VOL% (42.0-52.0); Immature Granulocytes % 0.5 %; Immature Granulocytes Absolute 0.04 #; Lymphocytes % 13.6 % (21.2-54.2); Mean Corpuscular HGB Conc 33.2 GM/DL (32-36); Mean Corpuscular Hemoglobin 26 PG (27-34); Mean Corpuscular Volume 78.8 FL (87-102); Monocytes # 1.1 10*3/uL (0.11-0.8); Monocytes % 14.3 % (1.7-12.7); NRBC # 0.02 10*3/uL; Neutrophils # 5.2 10*3/uL (1.4-7.4); Neutrophils % 70.2 % (38.7-73.9); Platelet Count 290 10*3/uL (130-400); Red Blood Count 3.82 10*6/uL (3.8-5.5); Red Cell Distribution Width 14.1 % (9.3-17.3); White Blood Count 7.4 10*3/uL (4.5-13.71)
[2016-03-09 08:20] LABS: Calcium 8.3 MG/DL (8.5-10.1); Magnesium 2.6 MG/DL (1.8-2.4); Osmolality,Calculated 291.5 MOS/KG (273-304); Potassium 3.9 MMOL/L (3.5-5.1)
--- NOTE | 2016-03-09 09:30 | Cardiology Progress Note ---
Assessment and Plan (1) Status post percutaneous transluminal coronary angioplasty Status: Acute Assessment and plan: 03/05/16: 1. 65-year-old BM with diabetes, dyslipidemia, controlled hypertension, status post non-STEMI with severely reduced LV systolic function (inferior severe hypokinesis with EF of 25%) and three-vessel CAD status post angioplasty of proximal RCA occlusion March 03 with 50-60% residual stenosis 2. Transient oliguria likely related to acute on chronic renal failure related due to heart failure and ZULEYKA; urine output is clearly picking up; creatinine increased to 2.1-3.1 yesterday evening, with no values yet today 3. Continue high intensity statin therapy; wean off dobutamine, given his stable blood pressure, recent IA, and improving renal function; continue Coreg 6.25 mg twice a day 4. Mild aortic stenosis and moderate mitral regurgitation noted echocardiogram 5. Holding Brilinta (last dose yesterday p.m.), as multivessel CABG would be his best option if he stabilizes more; if he does not stabilize sufficiently for surgery, then high risk percutaneous coronary intervention will be considered. March 06 update: 1. Mr. Cameron looks much better this morning, and is nodding his head that he wants to be off ventilator 2. Creatinine is elevated to just over 4 today, but his urine output has been good; would hold Lasix for now given his ZLUEYKA, and worsening creatinine 3. He is been on Brilinta since March 04 p.m. 4. Multivessel CABG would be his best option for revascularization, if his renal function stabilizes, etc. 5. Diabetic patient with severe ischemic cardiomyopathy status post non-STEMI and proximal RCA angioplasty March 03 with three-vessel disease and reasonable targets. March 07 update: 1. Mr. Cameron is doing very well clinically without complaint 2. Fair urine output despite creatinine now above 5; decreased Coreg 3.125 mg twice a day, to hopefully improve renal perfusion 3. Brilinta has been held since March 04, anticipating CABG next week if renal function improves; considering hybrid approach 4. Laxative to avoid significant constipation 5. Transfer to telemetry today March 08 update: 1. Mr. Cameron continues to do fairly well clinically without angina or symptomatic volume overload 2. Reasonable urine output, but creatinine is still slowly rising above 5; nephrology is following; hemodialysis is being considered Friday if needed prior to CABG 3. Brilinta is held since March 04, anticipating CABG 4. Diabetic patient with severe ischemic cardiomyopathy status post non-STEMI and proximal RCA angioplasty March 03, with probably some degree of ZULEYKA 5. Continue high intensity statin, baby aspirin, and reduced dose Coreg at 3.125 mg twice a day 6. Transfer to the floor later today Chamber 2017: 1. Mr. Cameron is doing well clinically without angina or symptomatic volume overload 2. Still has reasonably good urine output, creatinine has finally dropped slightly about 5.8 3. Brilinta has been held since March 04 p.m., anticipating CABG Friday 4. Hemodynamically stable with no hypotension or significant bradycardia, on very low-dose Coreg given his severe cardiomyopathy 5. Diabetic patient with three-vessel coronary artery disease, status post proximal RCA angioplasty without stenting Current Visit: Yes (2) Non-STEMI (non-ST elevated myocardial infarction) Status: Acute Current Visit: Yes (3) Diabetes Status: Acute Current Visit: Yes Qualifiers: Diabetes mellitus complication status: with kidney complications Diabetes mellitus complication detail: with nephropathy (4) Hypertension Status: Acute Current Visit: Yes Cardiology - PN: Subj Interval history: Mr. Cameron is feeling well this morning, the a little agitated last night when he could not sleep. He had a good bowel movement yesterday. He said chest pain or shortness of breath. He reports he is putting out a fair amount of urine. He is not having any chest discomfort. Exam (Progress Note) - Constitutional Vitals: Period Temp Pulse Resp BP Sys/Cruz Pulse Ox Last 24 Hr 96.5 F-98.0 F 60-74 16-25 96-118/67-82 68-100 General appearance: normal weight, no acute distress - Head Head exam: Present: normal inspection, normocephalic, atraumatic - Respiratory Respiratory exam: Present: rales. Absent: wheezes - Cardiovascular Cardiovascular exam: Present: regular rate and rhythm. Absent: diastolic murmur , rubs - GI/Abdominal GI/Abdominal exam: Present: tenderness. Absent: soft - Extremities Exam Extremities exam: Present: edema (trivial edema bilateral) Result/EKG - Labs CBC & BMP: 03/09/16 07:18 03/09/16 07:18 Labs: Laboratory Results - last 24 hr 03/08/16 03/08/16 03/09/16 12:19 18:03 00:33 WBC RBC Hgb Hct MCV MCH MCHC RDW Plt Count MPV Neut % (Auto) Lymph % (Auto) [place] % (Auto) Eos % (Auto) Baso % (Auto) Neut # (Auto) Lymph # (Auto) [place] # (Auto) Eos # (Auto) Baso # (Auto) Immature Gran % Nucleated RBC % Immature Gran # Nucleated RBCs # Sodium Potassium Chloride Carbon Dioxide Anion Gap BUN Creatinine GFR Calculation BUN/Creatinine Ratio Glucose POC Glucose 193 H 209 H 179 H Calculated Osmolality Calcium Magnesium 03/09/16 03/09/16 03/09/16 06:37 07:18 07:18 WBC 7.4 RBC 3.82 Hgb 10.0 L Hct 30.1 L MCV 78.8 L MCH 26 L MCHC 33.2 RDW 14.1 Plt Count 290 MPV 10.0 Neut % (Auto) 70.2 Lymph % (Auto) 13.6 L [place] % (Auto) 14.3 H Eos % (Auto) 1.3 Baso % (Auto) 0.1 Neut # (Auto) 5.2 Lymph # (Auto) 1.0 L [place] # (Auto) 1.1 H Eos # (Auto) 0.1 Baso # (Auto) 0.0 Immature Gran % 0.5 Nucleated RBC % 0.3 Immature Gran # 0.04 Nucleated RBCs # 0.02 Sodium 132 L Potassium 3.9 Chloride 96 L Carbon Dioxide 22 Anion Gap 17.9 H BUN 84 H Creatinine 5.80 H GFR Calculation 13 BUN/Creatinine Ratio 14.00 Glucose 126 H POC Glucose 141 H Calculated Osmolality 291.5 Calcium 8.3 L Magnesium 2.6 H Specialty Discharge - Follow Up or Referrals
[2016-03-09] MEDS: DOCUSATE SODIUM 100 MG CAPSULE PO SCH ×2 (10:54→21:11)
[2016-03-09] MEDS: SODIUM BICARBONATE 650 MG TABLET PO SCH ×2 (10:54→21:08)
[2016-03-09] MEDS: BISACODYL 5 MG TABLET PO SCH (10:54)
[2016-03-09] MEDS: CARVEDILOL 3.125 MG TABLET PO SCH ×2 (10:55→21:10)
[2016-03-09] MEDS: ASPIRIN EC 81 MG TABLET PO SCH (10:55)
[2016-03-09] MEDS: CHLORHEXIDINE 0.12% ORAL RINSE 60 ML BOTTLE SWISH/SPIT SCH ×2 (10:55→21:09)
[2016-03-09] MEDS: PANTOPRAZOLE 40 MG TABLET PO SCH (10:55)
[2016-03-09] MEDS: INSULIN GLARGINE 100 UNIT/ML SUBCUT SCH (10:55)
--- NOTE | 2016-03-09 11:11 | Nephrology Progress Note ---
Nephrology - PN: Subj Interval history: Pt sitting on bedside commode attempting to have BM. Denies SOB/pain. Creatinine 5.8 from 5.9. Exam (PN)-Nephrology - Vital Signs Vital signs: Period Temp Pulse Resp BP Sys/Cruz Pulse Ox Last 24 Hr 96.5 F-98.0 F 60-74 16-25 100-118/71-82 68-100 - General Appearance General appearance: well-developed, well-nourished EENT: ATNC, PERRL, mucous membranes dry, hearing intact, vision intact Neck: no JVD, no thyromegaly Respiratory: no kyphosis, clear Cardiology: no murmurs, no rub Gastrointestinal: normoactive bowel sounds, no tenderness Integumentary: no rash, warm and dry Neurologic: no focal deficit, no asterixis Musculoskeletal: no deformities, no erythema Psychiatric: mood/affect appropriate, cooperative - Lab 03/09/16 07:18 03/09/16 07:18 Most recent lab results ABG pH 7.388 (7.35-7.45) 03/08/16 03:25 ABG pCO2 32.1 MM HG (35-48) L 03/08/16 03:25 ABG pO2 113.0 MM HG (80-95) H 03/08/16 03:25 ABG HCO3 20.5 MMOL/L (20-26) 03/08/16 03:25 ABG O2 Saturation 96.3 % (95-100) 03/08/16 03:25 Calcium 8.3 MG/DL (8.5-10.1) L 03/09/16 07:18 Phosphorus 6.8 MG/DL (2.5-4.9) H 03/06/16 03:30 Magnesium 2.6 MG/DL (1.8-2.4) H 03/09/16 07:18 Assessment and Plan (1) ANA (acute kidney injury) Problem details: No indication for dialysis at this time. Suspicious for contrast induced nephropathy (ZULEYKA). Status: Acute Assessment and plan: Start cytotec 400mcg po q6h to improve renal perfusion. Current Visit: Yes (2) CKD stage 3 secondary to diabetes Status: Acute Current Visit: Yes Specialty Discharge - Follow Up or Referrals
--- NOTE | 2016-03-09 11:13 | Hospitalist Progress Note ---
Assessment and Plan (1) Non-STEMI (non-ST elevated myocardial infarction) Status: Acute Assessment and plan: Dr. Miles Mehta and Dr Santos managing, cabg on Friday Current Visit: Yes (2) Diabetes mellitus with diabetic nephropathy Status: Acute Assessment and plan: ISc, increase Lantus 8 units daily Current Visit: Yes (3) Ischemic cardiomyopathy Status: Acute Assessment and plan: echo ef 25% post SD patient's blood pressure is better today. Currently on Coreg low dose. Current Visit: Yes (4) Renal failure Status: Acute Assessment and plan: Still urinating and BUN and creatinine holding stable Current Visit: Yes (5) Leukocytosis Status: Acute Assessment and plan: WBC has returned to normal with IV antibiotics we will continue him on Zosyn and Levaquin treat for pneumonia Current Visit: Yes Hospitalist: Subjective Interval history: Patient still pretty weak. He also reports constipation so we are giving him Dulcolax. He also reports trouble sleeping for which he is receiving sonata. Serrano remains in at the request of renal Exam - Constitutional Vitals: Period Temp Pulse Resp BP Sys/Cruz Pulse Ox Last 24 Hr 96.5 F-98.0 F 60-74 16-25 100-118/71-82 68-100 Exam: HR-RRR lungs-clear GI-positive bowel sounds, nontender ext no edema Neuro motor 5 out of 5, alert and oriented 2 psych depressed mood and affect General no acute distress Results - Labs CBC & BMP: 03/09/16 07:18 03/09/16 07:18 Lab Results: I have reviewed the past 24 hour labs Specialty Discharge - Follow Up or Referrals
[2016-03-09] MEDS: miSOPROStol 200 MCG TABLET PO SCH ×3 (15:10→21:09)
[2016-03-09] MEDS: SODIUM BICARB INJ 150 MEQ in STERILE WATER INJ 850 ML IV SCH (15:45)
[2016-03-09] MEDS: ENOXAPARIN 100 MG/ML SYRINGE SUBCUT SCH (21:07)
[2016-03-09] MEDS: ROSUVASTATIN 20 MG TABLET PO SCH (21:10)
[2016-03-09] MEDS: ZALEPLON 5 MG CAPSULE PO PRN (21:22)
[2016-03-10] MEDS: guaiFENesin 200 MG/10 ML UDCUP PO PRN ×3 (00:09→23:24)
[2016-03-10] MEDS: INSULIN LISPRO 100 UNIT/ML SUBCUT SCH ×5 (00:20→23:25)
[2016-03-10] MEDS: ALBUTEROL/IPRATROPIUM 3 ML NEB RESP TX SCH ×7 (01:03→22:39)
[2016-03-10] MEDS: PIPERACILLIN/TAZOBACTAM 3,375 MG in SODIUM CHLORIDE 0.9% 100 ML IV SCH ×2 (01:44→16:23)
[2016-03-10 02:20] LABS: Apearance,Urine Slightly Hazy (Clear); Bacteria,Urine Occasional /HPF (Few); Bilirubin,Urine Negative (Negative); Blood, Urine Small mg/dL (Negative); Glucose,Urine (UA) Negative (Negative); Ketones,Urine Negative (Negative); Nitrite,Urine Negative (Negative); Protein,Urine 30 MG/DL; RBC,Urine 8 /HPF (0-4); Urine Color Yellow (Yellow); Urine Specific Gravity 1.017 (1.001-1.035); Urine Urobilinogen < 2.0 EU/DL (0.2-1.0); WBC,Urine 1 /HPF (0-6)
[2016-03-10 04:31] LABS: Basophils % 0.1 % (0.0-0.8); Eosinophils # 0.1 10*3/uL (0.0-0.87); Eosinophils % 1.2 % (0.00-10.9); Hematocrit 30.4 VOL% (42.0-52.0); Hemoglobin 10.1 GM/DL (14.0-18.0); Immature Granulocytes % 0.5 %; Immature Granulocytes Absolute 0.04 #; Lymphocytes # 1.2 10*3/uL (1.4-4.0); Mean Corpuscular HGB Conc 33.2 GM/DL (32-36); Mean Corpuscular Hemoglobin 26 PG (27-34); Mean Corpuscular Volume 78.1 FL (87-102); Mean Platelet Volume 10.3 FL (9.6-12.0); Monocytes # 1.2 10*3/uL (0.11-0.8); Monocytes % 14.9 % (1.7-12.7); NRBC # 0.02 10*3/uL; Neutrophils # 5.6 10*3/uL (1.4-7.4); Neutrophils % 68.3 % (38.7-73.9); Platelet Count 300 10*3/uL (130-400); Red Blood Count 3.89 10*6/uL (3.8-5.5); White Blood Count 8.1 10*3/uL (4.5-13.71)
[2016-03-10 05:05] LABS: Calcium 8.4 MG/DL (8.5-10.1); Magnesium 2.6 MG/DL (1.8-2.4); Osmolality,Calculated 289.7 MOS/KG (273-304); Potassium 4.1 MMOL/L (3.5-5.1)
--- NOTE | 2016-03-10 10:15 | Cardiology Progress Note ---
Assessment and Plan - Time spent with patient Time spent with patient: (trace to 1+ lower extremity edema bilaterally) (1) Status post percutaneous transluminal coronary angioplasty Status: Acute Assessment and plan: 03/05/16: 1. 65-year-old BM with diabetes, dyslipidemia, controlled hypertension, status post non-STEMI with severely reduced LV systolic function (inferior severe hypokinesis with EF of 25%) and three-vessel CAD status post angioplasty of proximal RCA occlusion March 03 with 50-60% residual stenosis 2. Transient oliguria likely related to acute on chronic renal failure related due to heart failure and ZULEYKA; urine output is clearly picking up; creatinine increased to 2.1-3.1 yesterday evening, with no values yet today 3. Continue high intensity statin therapy; wean off dobutamine, given his stable blood pressure, recent HI, and improving renal function; continue Coreg 6.25 mg twice a day 4. Mild aortic stenosis and moderate mitral regurgitation noted echocardiogram 5. Holding Brilinta (last dose yesterday p.m.), as multivessel CABG would be his best option if he stabilizes more; if he does not stabilize sufficiently for surgery, then high risk percutaneous coronary intervention will be considered. March 06 update: 1. Mr. Cameron looks much better this morning, and is nodding his head that he wants to be off ventilator 2. Creatinine is elevated to just over 4 today, but his urine output has been good; would hold Lasix for now given his ZULEYKA, and worsening creatinine 3. He is been on Brilinta since March 04 p.m. 4. Multivessel CABG would be his best option for revascularization, if his renal function stabilizes, etc. 5. Diabetic patient with severe ischemic cardiomyopathy status post non-STEMI and proximal RCA angioplasty March 03 with three-vessel disease and reasonable targets. March 07 update: 1. Mr. Cameron is doing very well clinically without complaint 2. Fair urine output despite creatinine now above 5; decreased Coreg 3.125 mg twice a day, to hopefully improve renal perfusion 3. Brilinta has been held since March 04, anticipating CABG next week if renal function improves; considering hybrid approach 4. Laxative to avoid significant constipation 5. Transfer to telemetry today March 08 update: 1. Mr. Cameron continues to do fairly well clinically without angina or symptomatic volume overload 2. Reasonable urine output, but creatinine is still slowly rising above 5; nephrology is following; hemodialysis is being considered Friday if needed prior to CABG 3. Brilinta is held since March 04, anticipating CABG 4. Diabetic patient with severe ischemic cardiomyopathy status post non-STEMI and proximal RCA angioplasty March 03, with probably some degree of ZULEYKA 5. Continue high intensity statin, baby aspirin, and reduced dose Coreg at 3.125 mg twice a day 6. Transfer to the floor later today March 09 2017: 1. Mr. Cameron is doing well clinically without angina or symptomatic volume overload 2. Still has reasonably good urine output, creatinine has finally dropped slightly about 5.8 3. Brilinta has been held since March 04 p.m., anticipating CABG Friday 4. Hemodynamically stable with no hypotension or significant bradycardia, on very low-dose Coreg given his severe cardiomyopathy 5. Diabetic patient with three-vessel coronary artery disease, status post proximal RCA angioplasty without stenting March 10 uptake: 1. Mr. Cameron is recently stable but does have some modest dyspnea on exertion and jugular venous pressure to the angle of the mandible sitting up 2. Creatinine slightly better at 5.5; nephrology service is following 3. Severe ischemic cardiomyopathy with three-vessel CAD and diabetes; planning for CABG later this week 4. Hemodynamically stable, on good cardiac medications Current Visit: Yes (2) Non-STEMI (non-ST elevated myocardial infarction) Status: Acute Current Visit: Yes (3) Diabetes Status: Acute Current Visit: Yes Qualifiers: Diabetes mellitus complication status: with kidney complications Diabetes mellitus complication detail: with nephropathy (4) Hypertension Status: Acute Current Visit: Yes Cardiology - PN: Subj Interval history: Mr. Cameron reports some modest dyspnea on exertion walking around the room, which seems to be a new development, although he is not been very active previously. He is not having chest discomfort dizziness. He has minimal lower extremity swelling. He does not have any bleeding problems. He reports reasonable urine output. Exam (Progress Note) - Constitutional Vitals: Period Temp Pulse Resp BP Sys/Cruz Pulse Ox Last 24 Hr 96.4 F-98.6 F 69-79 16-20 102-127/64-85 90-100 General appearance: no acute distress, over weight - Head Head exam: Present: normal inspection, normocephalic, atraumatic - Neck Neck exam: Present: normal inspection - Respiratory Respiratory exam: Present: rales - Cardiovascular Cardiovascular exam: Present: JVD, regular rate and rhythm. Absent: diastolic murmur, rubs - GI/Abdominal GI/Abdominal exam: Present: soft. Absent: tenderness - Extremities Exam Extremities exam: Present: edema Result/EKG - Labs CBC & BMP: 03/10/16 03:14 03/10/16 03:14 Labs: Laboratory Results - last 24 hr 03/09/16 03/09/16 03/09/16 07:13 12:27 16:11 WBC RBC Hgb Hct MCV MCH MCHC RDW Plt Count MPV Neut % (Auto) Lymph % (Auto) [place] % (Auto) Eos % (Auto) Baso % (Auto) Neut # (Auto) Lymph # (Auto) [place] # (Auto) Eos # (Auto) Baso # (Auto) Immature Gran % Nucleated RBC % Immature Gran # Nucleated RBCs # Sodium Potassium Chloride Carbon Dioxide Anion Gap BUN Creatinine GFR Calculation BUN/Creatinine Ratio Glucose POC Glucose 136 H 180 H 221 H Calculated Osmolality Calcium Magnesium Urine Color Urine Appearance Urine pH Ur Specific [place] Urine Protein Urine Glucose (UA) Urine Ketones Urine Blood Urine Nitrate Urine Bilirubin Urine Urobilinogen Urine Leukocytes Urine RBC Urine WBC Urine Bacteria Ur Culture Indicated? 03/10/16 03/10/16 03/10/16 00:08 01:45 03:14 WBC 8.1 RBC 3.89 Hgb 10.1 L Hct 30.4 L MCV 78.1 L MCH 26 L MCHC 33.2 RDW 14.0 Plt Count 300 MPV 10.3 Neut % (Auto) 68.3 Lymph % (Auto) 15.0 L Davison % (Auto) 14.9 H Eos % (Auto) 1.2 Baso % (Auto) 0.1 Neut # (Auto) 5.6 Lymph # (Auto) 1.2 L [place] # (Auto) 1.2 H Eos # (Auto) 0.1 Baso # (Auto) 0.0 Immature Gran % 0.5 Nucleated RBC % 0.2 Immature Gran # 0.04 Nucleated RBCs # 0.02 Sodium Potassium Chloride Carbon Dioxide Anion Gap BUN Creatinine GFR Calculation BUN/Creatinine Ratio Glucose POC Glucose 116 H Calculated Osmolality Calcium Magnesium Urine Color Yellow Urine Appearance Slightly hazy Urine pH 5.0 Ur Specific [place] 1.017 Urine Protein 30 Urine Glucose (UA) Negative Urine Ketones Negative Urine Blood Small Urine Nitrate Negative Urine Bilirubin Negative Urine Urobilinogen < 2.0 H Urine Leukocytes Negative Urine RBC 8 Urine WBC 1 Urine Bacteria Occasional Ur Culture Indicated? Not indicated 03/10/16 03/10/16 03/10/16 03:14 06:27 07:08 WBC RBC Hgb Hct MCV MCH MCHC RDW Plt Count MPV Neut % (Auto) Lymph % (Auto) [place] % (Auto) Eos % (Auto) Baso % (Auto) Neut # (Auto) Lymph # (Auto) [place] # (Auto) Eos # (Auto) Baso # (Auto) Immature Gran % Nucleated RBC % Immature Gran # Nucleated RBCs # Sodium 131 L Potassium 4.1 Chloride 91 L Carbon Dioxide 22 Anion Gap 22.1 H BUN 87 H Creatinine 5.50 H GFR Calculation 14 BUN/Creatinine Ratio 15.00 Glucose 110 H POC Glucose 121 H 123 H Calculated Osmolality 289.7 Calcium 8.4 L Magnesium 2.6 H Urine Color Urine Appearance Urine pH Ur Specific [place] Urine Protein Urine Glucose (UA) Urine Ketones Urine Blood Urine Nitrate Urine Bilirubin Urine Urobilinogen Urine Leukocytes Urine RBC Urine WBC Urine Bacteria Ur Culture Indicated? Specialty Discharge - Follow Up or Referrals
[2016-03-10] MEDS: SODIUM BICARBONATE 650 MG TABLET PO SCH ×2 (10:28→23:32)
[2016-03-10] MEDS: ASPIRIN EC 81 MG TABLET PO SCH (10:28)
[2016-03-10] MEDS: miSOPROStol 200 MCG TABLET PO SCH ×4 (10:28→21:34)
[2016-03-10] MEDS: BISACODYL 5 MG TABLET PO SCH (10:28)
[2016-03-10] MEDS: CARVEDILOL 3.125 MG TABLET PO SCH ×2 (10:29→21:33)
[2016-03-10] MEDS: CHLORHEXIDINE 0.12% ORAL RINSE 60 ML BOTTLE SWISH/SPIT SCH ×2 (10:29→21:39)
[2016-03-10] MEDS: PANTOPRAZOLE 40 MG TABLET PO SCH (10:29)
[2016-03-10] MEDS: DOCUSATE SODIUM 100 MG CAPSULE PO SCH ×2 (10:29→21:34)
[2016-03-10] MEDS: INSULIN GLARGINE 100 UNIT/ML SUBCUT SCH (10:29)
[2016-03-10] MEDS ORDERED: FUROSEMIDE 20 MG/2 ML VIAL IV ONE (10:46)
[2016-03-10] MEDS ORDERED: MAGNESIUM HYDROXIDE SUSP 30 ML UDCUP PO PRN (10:55)
--- NOTE | 2016-03-10 11:56 | Nephrology Progress Note ---
Nephrology - PN: Subj Interval history: Pt states he feels better today. Creatinine improved. Pt reports nocturia x 3 at home, intermittency, PVD, urgency and frequency. Requiring in and out catheterization here. No spontaneous voiding yet today on rounds. Pt again sitting on bedside commode on rounds, not having much results. Counseled against straining too hard to have BM. Appetite OK but has early satiety. Given 20mg IVP lasix today. Likely requires more for effectiveness. Exam (PN)-Nephrology - Vital Signs Vital signs: Period Temp Pulse Resp BP Sys/Cruz Pulse Ox Last 24 Hr 96.4 F-98.6 F 66-79 16-20 102-127/64-85 90-99 - General Appearance General appearance: well-developed, chronically ill EENT: ATNC, PERRL, mucous membranes moist, hearing intact, vision intact Neck: JVD, supple Respiratory: no kyphosis, rales Cardiology: no murmurs, no rub, edema Gastrointestinal: normoactive bowel sounds, no tenderness Integumentary: no rash, warm and dry Neurologic: no focal deficit, no asterixis, alert and oriented x3 Musculoskeletal: no deformities, no erythema Psychiatric: mood/affect appropriate, cooperative - Lab 03/10/16 03:14 03/10/16 03:14 Most recent lab results ABG pH 7.388 (7.35-7.45) 03/08/16 03:25 ABG pCO2 32.1 MM HG (35-48) L 03/08/16 03:25 ABG pO2 113.0 MM HG (80-95) H 03/08/16 03:25 ABG HCO3 20.5 MMOL/L (20-26) 03/08/16 03:25 ABG O2 Saturation 96.3 % (95-100) 03/08/16 03:25 Calcium 8.4 MG/DL (8.5-10.1) L 03/10/16 03:14 Phosphorus 6.8 MG/DL (2.5-4.9) H 03/06/16 03:30 Magnesium 2.6 MG/DL (1.8-2.4) H 03/10/16 03:14 Assessment and Plan (1) ANA (acute kidney injury) Problem details: No indication for dialysis at this time. Suspicious for contrast induced nephropathy (ZULEYKA). Improved creatinine with addition of cytotec. Continue. Status: Acute Assessment and plan: Continue cytotec 400mcg po q6h to improve renal perfusion. Consider 40-80mg lasix x 1, titrate for response. Current Visit: Yes (2) CKD stage 3 secondary to diabetes Status: Acute Current Visit: Yes (3) BPH (benign prostatic hyperplasia) Problem details: start flomax daily. first dose tonight. Status: Acute Current Visit: Yes Specialty Discharge - Follow Up or Referrals
--- NOTE | 2016-03-10 12:02 | Hospitalist Progress Note ---
Assessment and Plan (1) Non-STEMI (non-ST elevated myocardial infarction) Status: Acute Assessment and plan: Dr. Miles Mehta and Dr Santos managing, cabg on Friday Current Visit: Yes (2) Diabetes mellitus with diabetic nephropathy Status: Acute Assessment and plan: ISc, blood sugars better continue Lantus Current Visit: Yes (3) Ischemic cardiomyopathy Status: Acute Assessment and plan: echo ef 25% post MO patient's blood pressure is better today. Continue Coreg Current Visit: Yes (4) Renal failure Status: Acute Assessment and plan: Dialysis tomorrow Current Visit: Yes (5) Leukocytosis Status: Acute Assessment and plan: WBC has returned to normal with IV antibiotics we will continue him on Zosyn and Levaquin treat for pneumonia Current Visit: Yes Hospitalist: Subjective Interval history: Cannot lay down flat as he has difficulty breathing. Sounds wet when I listen to him. He is coughing a lot which is also consistent with CHF Exam - Constitutional Vitals: Period Temp Pulse Resp BP Sys/Cruz Pulse Ox Last 24 Hr 96.4 F-98.6 F 66-79 16-20 102-127/64-85 90-99 Exam: HR-RRR lungs-crackles GI-positive bowel sounds, nontender but distended ext no edema Neuro motor 5 out of 5, alert and oriented 2 psych depressed mood and affect General no acute distress Results - Labs CBC & BMP: 03/10/16 03:14 03/10/16 03:14 Lab Results: I have reviewed the past 24 hour labs Labs: Blood cultures 2 negative Specialty Discharge - Follow Up or Referrals
[2016-03-10] MEDS: ONDANSETRON 4 MG/2 ML VIAL IV PRN (15:26)
[2016-03-10] MEDS: SODIUM BICARB INJ 150 MEQ in STERILE WATER INJ 850 ML IV SCH (16:05)
[2016-03-10] MEDS: LEVOFLOXACIN INJ 750 MG in PREMIX 1 EACH IV SCH (21:31)
[2016-03-10] MEDS: ROSUVASTATIN 20 MG TABLET PO SCH (21:33)
[2016-03-10] MEDS: TAMSULOSIN 0.4 MG CAPSULE PO SCH (21:34)
[2016-03-10] MEDS: ENOXAPARIN 100 MG/ML SYRINGE SUBCUT SCH (21:34)
[2016-03-11] MEDS: PIPERACILLIN/TAZOBACTAM 3,375 MG in SODIUM CHLORIDE 0.9% 100 ML IV SCH ×2 (01:44→13:17)
[2016-03-11] MEDS: ALBUTEROL/IPRATROPIUM 3 ML NEB RESP TX SCH ×5 (02:49→19:35)
[2016-03-11 04:54] LABS: Basophils % 0.1 % (0.0-0.8); Eosinophils % 0.4 % (0.00-10.9); Hematocrit 28.5 VOL% (42.0-52.0); Hemoglobin 9.6 GM/DL (14.0-18.0); Immature Granulocytes % 0.9 %; Immature Granulocytes Absolute 0.08 #; Lymphocytes # 1.3 10*3/uL (1.4-4.0); Lymphocytes % 14.7 % (21.2-54.2); Mean Corpuscular HGB Conc 33.7 GM/DL (32-36); Mean Corpuscular Hemoglobin 26 PG (27-34); Mean Corpuscular Volume 76.4 FL (87-102); Mean Platelet Volume 10.1 FL (9.6-12.0); Monocytes # 1.5 10*3/uL (0.11-0.8); Monocytes % 17.3 % (1.7-12.7); Neutrophils # 5.9 10*3/uL (1.4-7.4); Neutrophils % 66.6 % (38.7-73.9); Platelet Count 318 10*3/uL (130-400); Red Blood Count 3.73 10*6/uL (3.8-5.5); White Blood Count 8.9 10*3/uL (4.5-13.71)
[2016-03-11 05:17] LABS: Albumin 2.3 G/DL (3.4-5.0); Calcium 8.4 MG/DL (8.5-10.1); Osmolality,Calculated 290.7 MOS/KG (273-304); Phosphorous 5.6 MG/DL (2.5-4.9)
[2016-03-11] MEDS: INSULIN LISPRO 100 UNIT/ML SUBCUT SCH ×3 (05:37→17:17)
[2016-03-11 05:38] LABS: Band Neutrophils 4 % (0-10); Lymphocytes 15 % (20-55); Myelocytes 2 %; Platelet Estimate Normal; Segmented Neutrophils 72 % (50-85); Total Cells Counted 100
--- NOTE | 2016-03-11 07:15 | Nephrology Progress Note ---
Nephrology - PN: Subj Interval history: Patient denies shortness of breath. Review of systems GI he denies nausea or vomiting Physical exam general patient's chronically ill-appearing, lungs are clear to auscultation, heart is regular rate and rhythm, he has trace pretibial edema Assessment/plan 1. Acute renal failure-patient's creatinine is 5.4 mg/dL this is about what it was yesterday at 5.5 mg/dL, urine output about 1100 mL yesterday, plan is for an HD catheter to be placed tomorrow intraoperatively in anticipation of dialysis requirement post CABG. 2. Coronary artery disease-patient for bypass procedure tomorrow 3. Diabetes mellitus 4. Acute myocardial infarction 5. Metabolic acidosis-this is improved patient's bicarbonate is 22 Exam (PN)-Nephrology - Vital Signs Vital signs: Period Temp Pulse Resp BP Sys/Cruz Pulse Ox Last 24 Hr 97.6 F-98.3 F 66-79 15-20 114-141/76-98 92-100 - Lab 03/11/16 03:36 03/11/16 03:36 Most recent lab results ABG pH 7.388 (7.35-7.45) 03/08/16 03:25 ABG pCO2 32.1 MM HG (35-48) L 03/08/16 03:25 ABG pO2 113.0 MM HG (80-95) H 03/08/16 03:25 ABG HCO3 20.5 MMOL/L (20-26) 03/08/16 03:25 ABG O2 Saturation 96.3 % (95-100) 03/08/16 03:25 Calcium 8.4 MG/DL (8.5-10.1) L 03/11/16 03:36 Phosphorus 5.6 MG/DL (2.5-4.9) H 03/11/16 03:36 Magnesium 2.6 MG/DL (1.8-2.4) H 03/10/16 03:14 Assessment and Plan (1) Renal failure Status: Acute Assessment and plan: This patient was admitted with a elevated creatinine of 2.1 mg/dL, his baseline is not known. He was making some urine up until the past 3-4 hours. He is presently getting 40 mg of Lasix IV twice a day without response. I suspect this patient has a acute kidney injury related to his myocardial infarction as well as contrast administration. He may also have some underlying chronic kidney disease related to diabetes and hypertension. At this point if he continues without response to the diuretics I will discontinue these. I would also stopped the MIRACLE inhibitor that is been started. Current Visit: Yes (2) Coronary artery disease Status: Acute Assessment and plan: Patient was admitted with an SC, he is undergone coronary angioplasty, he is being considered for open heart surgery later this week. Current Visit: Yes (3) Diabetes Status: Acute Current Visit: Yes Qualifiers: Diabetes mellitus complication status: with kidney complications Diabetes mellitus complication detail: with nephropathy (4) Hypertension Status: Acute Current Visit: Yes (5) Non-STEMI (non-ST elevated myocardial infarction) Status: Acute Current Visit: Yes (6) Status post percutaneous transluminal coronary angioplasty Status: Acute Current Visit: Yes Specialty Discharge - Follow Up or Referrals
[2016-03-11] MEDS: ASPIRIN EC 81 MG TABLET PO SCH (08:54)
[2016-03-11] MEDS: BISACODYL 5 MG TABLET PO SCH (08:54)
[2016-03-11] MEDS: CARVEDILOL 3.125 MG TABLET PO SCH ×2 (08:54→20:32)
[2016-03-11] MEDS: DOCUSATE SODIUM 100 MG CAPSULE PO SCH ×2 (08:54→20:32)
[2016-03-11] MEDS: miSOPROStol 200 MCG TABLET PO SCH ×4 (08:54→20:32)
[2016-03-11] MEDS: PANTOPRAZOLE 40 MG TABLET PO SCH (08:55)
[2016-03-11] MEDS: SODIUM BICARBONATE 650 MG TABLET PO SCH ×2 (08:55→20:32)
[2016-03-11] MEDS: INSULIN GLARGINE 100 UNIT/ML SUBCUT SCH (08:55)
[2016-03-11] MEDS: CHLORHEXIDINE 0.12% ORAL RINSE 60 ML BOTTLE SWISH/SPIT SCH ×2 (08:57→20:33)
--- NOTE | 2016-03-11 09:00 | Cardiology Progress Note ---
<Maryann Cotto E - Last Filed: 03/11/16 09:14> Assessment and Plan - Time spent with patient Time spent with patient: Greater than 30 minutes (1) Dyslipidemia Status: Chronic Assessment and plan: Continue current plan of care. See above Current Visit: Yes (2) CKD stage 3 secondary to diabetes Status: Acute Assessment and plan: Continue current plan of care. See above Current Visit: Yes (3) Coronary artery disease Status: Chronic Assessment and plan: Continue current plan of care. See above Current Visit: Yes Qualifiers: Coronary Disease-Associated Artery/Lesion type: [place] artery (4) Diabetes mellitus with diabetic nephropathy Status: Chronic Assessment and plan: Continue current plan of care. See above Current Visit: Yes (5) Hypertension Status: Chronic Assessment and plan: Continue current plan of care. See above Current Visit: Yes (6) Ischemic cardiomyopathy Status: Acute Assessment and plan: Continue current plan of care. See above Current Visit: Yes (7) Non-STEMI (non-ST elevated myocardial infarction) Status: Acute Current Visit: Yes (8) Status post percutaneous transluminal coronary angioplasty Status: Resolved Assessment and plan: Continue current plan of care. See above Current Visit: Yes (9) CAD (coronary artery disease) Status: Chronic Assessment and plan: Continue current plan of care. See above Current Visit: Yes Qualifiers: Coronary Disease-Associated Artery/Lesion type: [place] artery (10) Ischemic cardiomyopathy Status: Acute Assessment and plan: Continue current plan of care. See above Current Visit: Yes Cardiology - PN: Subj Interval history: Mr. Cameron, 65-year-old BM, had never been followed by cardiology until he admitted to the emergency department [facility] 03/03 with complaints of chest pain. Dr. Santos admitted the patient. Patient was found to have a NSTEMI with ongoing anginal symptoms. He had a very large increase in his cardiac biomarkers (troponin peaked at 45.4) and he underwent emergent cardiac catheterization with the following impression noted: IMPRESSIONS: 1. Late presentation non-ST elevation myocardial infarction involving complete occlusion of the right coronary artery as well as severe three-vessel coronary artery disease as described above. 2. Successful percutaneous intervention to the proximal right coronary artery with balloon angioplasty as described above. 3. High-grade residual disease in the ostial left anterior descending coronary artery. 4. Normal right iliofemoral artery was successful and distal closure. 5. Severe ischemic cardiomyopathy. Dr. Santos found that his right coronary artery was occluded. The RCA was successfully opened with balloon angioplasty however, he has a high-grade ostial LAD lesion which is thought to be very risky for percutaneous approach. He is also noted to have significant residual disease in his right coronary artery as well as the circumflex system. His case was discussed with Dr. Miles Mehta. At this time, he is being medically managed and will be undergoing possible surgical revascularization in a few days. He had transient oliguria likely related to acute on chronic renal failure related to heart failure and ZU[place]KA.. He was treated with dobutamine and ultimately weaned off the dobutamine within approximately 48 hours. Patient had elevated creatinine on admission (2.1) and this has since worsened and peaked at 5.9. This morning his creatinine is 5.4. Nephrology continues to follow. Brilinta has been held since March 04, 2016 anticipating CABG later this week. Echocardiogram 03/03/2016 revealed EF 20-25% mild global hypokinesis and severe inferior hypo to akinesis noted. Mitral regurgitation noted to be moderate. Patient believes his breathing is better. He is still orthopneic but states this is improved. He has diuresed 9 kg since admission. ASSESSMENT/PLAN: 1. NSTEMI - right coronary artery occlusion felt to be the culprit lesion was addressed with angioplasty. Hopefully, patient will undergo CABG this week 2. CAD - three-vessel coronary artery disease with reasonably good targets. Dr. Bhatt has been consulted and patient will undergo CABG this week. 3. ICM - EF 20% with mild global hypokinesis, severe inferior hypo-to akinesis. Tolerating low-dose beta andrea. Avoiding Vladimir inhibitors due to fear of worsening his renal insufficiency. Will add Imdur this morning. When blood pressure will allow, can consider introducing hydralazine as well. 4. MR - moderate per echocardiogram. Continue current plan of care 5. Acute on chronic renal insufficiency - initially, patient's creatinine was 2.1. Appreciate nephrology's assistance. It appears that his creatinine is improving. Renal ultrasound revealed no significant abnormality. 6. Hypertension - history of hypertension. At one point, he was hypotensive after the cath. This is resolved and he is tolerating 3.125 mg Corag twice a day 7. Dyslipidemia - aggressive statin therapy and disease. 8. DM - continue current plan of care. Exam (Progress Note) - Constitutional Vitals: Period Temp Pulse Resp BP Sys/Cruz Pulse Ox Last 24 Hr 97.5 F-98.3 F 66-79 15-20 124-141/79-98 92-100 Exam: General: Appears well with no apparent distress. Pleasant and cooperative. Appears comfortable. HEENT: PERRL, normocephalic, atraumatic. Mucous membranes moist. No jaundice noted. Conjunctiva moist and clear, sclerae anicteric Neck: No JVD/HJR, no thyromegaly or lymphadenopathy noted. No carotid bruit appreciated Cardiac: Regular rate and rhythm. II/ HSM heard best at 5ICS left. 2-4cm JVD to jaw noted. Lungs: Clear to auscultation without accessory muscle use to assist the respiratory pattern. Continues to require oxygen intermittently. Abdomen: Soft, bowel sounds normoactive. Nontender and nondistended. No abdominal bruit or thrill noted. No masses noted. Musculoskeletal: No fluid collection. Decreased range of motion is noted. Extremities: No clubbing, cyanosis noted. Trace BLE edema. Upper extremity pulses 2+. Lower extremity pulses 1+. Capillary refill less than 3 seconds. Skin: No unusual lesions or rashes. No skin breakdown appreciated. Neuro: Awake, alert and oriented 3. Moves all extremities well without hemiparesis or paralysis. No essential tremor is appreciated. Result/EKG - Labs CBC & BMP: 03/11/16 03:36 03/11/16 03:36 Lab Results: I have reviewed the past 24 hour labs Labs: Laboratory Results - last 24 hr 03/10/16 03/10/16 03/10/16 09:25 12:32 15:53 WBC RBC Hgb Hct MCV MCH MCHC RDW Plt Count MPV Neut % (Auto) Lymph % (Auto) [place] % (Auto) Eos % (Auto) Baso % (Auto) Neut # (Auto) Lymph # (Auto) [place] # (Auto) Eos # (Auto) Baso # (Auto) Total Counted Immature Gran % Nucleated RBC % Immature Gran # Segmented Neutrophils Band Neutrophils Lymphocytes Monocytes Myelocytes Nucleated RBCs # Platelet Estimate Sodium Potassium Chloride Carbon Dioxide Anion Gap BUN Creatinine GFR Calculation BUN/Creatinine Ratio Glucose POC Glucose 181 H 215 H Calculated Osmolality Calcium Phosphorus Albumin Urine Eosinophils 0 Ur Random Creatinine Ur Random Urea Nitrogn 03/10/16 03/10/16 03/10/16 21:20 21:20 23:09 WBC RBC Hgb Hct MCV MCH MCHC RDW Plt Count MPV Neut % (Auto) Lymph % (Auto) [place] % (Auto) Eos % (Auto) Baso % (Auto) Neut # (Auto) Lymph # (Auto) [place] # (Auto) Eos # (Auto) Baso # (Auto) Total Counted Immature Gran % Nucleated RBC % Immature Gran # Segmented Neutrophils Band Neutrophils Lymphocytes Monocytes Myelocytes Nucleated RBCs # Platelet Estimate Sodium Potassium Chloride Carbon Dioxide Anion Gap BUN Creatinine GFR Calculation BUN/Creatinine Ratio Glucose POC Glucose 172 H Calculated Osmolality Calcium Phosphorus Albumin Urine Eosinophils Ur Random Creatinine 163 Ur Random Urea Nitrogn 640 03/11/16 03/11/16 03/11/16 03:36 03:36 04:04 WBC 8.9 RBC 3.73 L Hgb 9.6 L Hct 28.5 L MCV 76.4 L MCH 26 L MCHC 33.7 RDW 14.0 Plt Count 318 MPV 10.1 Neut % (Auto) 66.6 Lymph % (Auto) 14.7 L [place] % (Auto) 17.3 H Eos % (Auto) 0.4 Baso % (Auto) 0.1 Neut # (Auto) 5.9 Lymph # (Auto) 1.3 L [place] # (Auto) 1.5 H Eos # (Auto) 0.0 Baso # (Auto) 0.0 Total Counted 100 Immature Gran % 0.9 Nucleated RBC % 0.0 Immature Gran # 0.08 Segmented Neutrophils 72 Band Neutrophils 4 Lymphocytes 15 L Monocytes 7 Myelocytes 2 Nucleated RBCs # 0.00 Platelet Estimate Normal Sodium 131 L Potassium 4.0 Chloride 92 L Carbon Dioxide 21 Anion Gap 22.0 H BUN 88 H Creatinine 5.40 H GFR Calculation 14 BUN/Creatinine Ratio 16.00 Glucose 129 H POC Glucose 143 H Calculated Osmolality 290.7 Calcium 8.4 L Phosphorus 5.6 H Albumin 2.3 L Urine Eosinophils Ur Random Creatinine Ur Random Urea Nitrogn 03/11/16 07:38 WBC RBC Hgb Hct MCV MCH MCHC RDW Plt Count MPV Neut % (Auto) Lymph % (Auto) [place] % (Auto) Eos % (Auto) Baso % (Auto) Neut # (Auto) Lymph # (Auto) [place] # (Auto) Eos # (Auto) Baso # (Auto) Total Counted Immature Gran % Nucleated RBC % Immature Gran # Segmented Neutrophils Band Neutrophils Lymphocytes Monocytes Myelocytes Nucleated RBCs # Platelet Estimate Sodium Potassium Chloride Carbon Dioxide Anion Gap BUN Creatinine GFR Calculation BUN/Creatinine Ratio Glucose POC Glucose 146 H Calculated Osmolality Calcium Phosphorus Albumin Urine Eosinophils Ur Random Creatinine Ur Random Urea Nitrogn - Diagnostic Findings Procedure: Chest x-ray: report reviewed by me - EKG EKG results: interpreted by me EKG shows: sinus rhythm Specialty Discharge - Follow Up or Referrals <Rena Maria - Last Filed: 03/11/16 14:20> Cardiology - PN: Subj Interval history: I personally interviewed and examined the patient, reviewed the chart and discussed medical decision-making with practitioner Kirti. I have read her note and agree with the findings therein. I've also discussed this case with Dr. Bhatt. The patient is scheduled to undergo bypass surgery tomorrow. Exam (Progress Note) - Constitutional Vitals: Period Temp Pulse Resp BP Sys/Cruz Pulse Ox Last 24 Hr 97.5 F-98.3 F 68-95 15-20 124-137/79-92 93-100 Result/EKG - Labs CBC & BMP: 03/11/16 03:36 03/11/16 03:36 Labs: Laboratory Results - last 24 hr 03/10/16 03/10/16 03/10/16 15:53 21:20 21:20 WBC RBC Hgb Hct MCV MCH MCHC RDW Plt Count MPV Neut % (Auto) Lymph % (Auto) [place] % (Auto) Eos % (Auto) Baso % (Auto) Neut # (Auto) Lymph # (Auto) [place] # (Auto) Eos # (Auto) Baso # (Auto) Total Counted Immature Gran % Nucleated RBC % Immature Gran # Segmented Neutrophils Band Neutrophils Lymphocytes Monocytes Myelocytes Nucleated RBCs # Platelet Estimate Sodium Potassium Chloride Carbon Dioxide Anion Gap BUN Creatinine GFR Calculation BUN/Creatinine Ratio Glucose POC Glucose 215 H Calculated Osmolality Calcium Phosphorus Albumin Ur Random Creatinine 163 Ur Random Urea Nitrogn 640 03/10/16 03/11/16 03/11/16 23:09 03:36 03:36 WBC 8.9 RBC 3.73 L Hgb 9.6 L Hct 28.5 L MCV 76.4 L MCH 26 L MCHC 33.7 RDW 14.0 Plt Count 318 MPV 10.1 Neut % (Auto) 66.6 Lymph % (Auto) 14.7 L [place] % (Auto) 17.3 H Eos % (Auto) 0.4 Baso % (Auto) 0.1 Neut # (Auto) 5.9 Lymph # (Auto) 1.3 L [place] # (Auto) 1.5 H Eos # (Auto) 0.0 Baso # (Auto) 0.0 Total Counted 100 Immature Gran % 0.9 Nucleated RBC % 0.0 Immature Gran # 0.08 Segmented Neutrophils 72 Band Neutrophils 4 Lymphocytes 15 L Monocytes 7 Myelocytes 2 Nucleated RBCs # 0.00 Platelet Estimate Normal Sodium 131 L Potassium 4.0 Chloride 92 L Carbon Dioxide 21 Anion Gap 22.0 H BUN 88 H Creatinine 5.40 H GFR Calculation 14 BUN/Creatinine Ratio 16.00 Glucose 129 H POC Glucose 172 H Calculated Osmolality 290.7 Calcium 8.4 L Phosphorus 5.6 H Albumin 2.3 L Ur Random Creatinine Ur Random Urea Nitrogn 03/11/16 03/11/16 03/11/16 04:04 07:38 11:57 WBC RBC Hgb Hct MCV MCH MCHC RDW Plt Count MPV Neut % (Auto) Lymph % (Auto) [place] % (Auto) Eos % (Auto) Baso % (Auto) Neut # (Auto) Lymph # (Auto) [place] # (Auto) Eos # (Auto) Baso # (Auto) Total Counted Immature Gran % Nucleated RBC % Immature Gran # Segmented Neutrophils Band Neutrophils Lymphocytes Monocytes Myelocytes Nucleated RBCs # Platelet Estimate Sodium Potassium Chloride Carbon Dioxide Anion Gap BUN Creatinine GFR Calculation BUN/Creatinine Ratio Glucose POC Glucose 143 H 146 H 179 H Calculated Osmolality Calcium Phosphorus Albumin Ur Random Creatinine Ur Random Urea Nitrogn
[2016-03-11] MEDS: ISOSORBIDE MONONITRATE 30 MG TABLET PO SCH (10:01)
[2016-03-11] MEDS: CHLORHEXIDINE 4% SOLN 118 ML BOTTLE TOP SCH ×5 (12:00→21:12)
--- NOTE | 2016-03-11 13:40 | Hospitalist Progress Note ---
Assessment and Plan (1) CAD (coronary artery disease) Status: Chronic Assessment and plan: 1)CAD for CABG tomorrow 2)DM- 146-215. On lantus, SSI 3)ESRD- dialysis on MWF. 4)leukocytosis- resolved. On antibiotics for pneumonia. Current Visit: Yes Qualifiers: Coronary Disease-Associated Artery/Lesion type: [place] artery (2) Ischemic cardiomyopathy Status: Acute Current Visit: Yes (3) Non-STEMI (non-ST elevated myocardial infarction) Status: Acute Current Visit: Yes (4) Renal failure Status: Acute Current Visit: Yes (5) Diabetes mellitus with diabetic nephropathy Status: Chronic Current Visit: Yes (6) Dyslipidemia Status: Chronic Current Visit: Yes (7) Hypertension Status: Chronic Current Visit: Yes Hospitalist: Subjective Interval history: MR Santizo is doing ok. He will have CABG tomorrow. He tells me his diabetes has been well controlled. Exam - Constitutional Vitals: Period Temp Pulse Resp BP Sys/Cruz Pulse Ox Last 24 Hr 97.5 F-98.3 F 68-95 15-20 124-137/79-92 92-100 General appearance: normal weight, no acute distress - Eye Eye exam: Present: EOMI. Absent: scleral icterus - Respiratory Respiratory exam: Present: clear to auscultation bilaterally - Cardiovascular Cardiovascular exam: Present: regular rate and rhythm - GI/Abdominal GI/Abdominal exam: Present: normal bowel sounds, soft. Absent: tenderness - Extremities Exam Extremities exam: Absent: edema Results - Labs CBC & BMP: 03/11/16 03:36 03/11/16 03:36 Lab Results: I have reviewed the past 24 hour labs Specialty Discharge - Follow Up or Referrals
[2016-03-11] MEDS: SODIUM BICARB INJ 150 MEQ in STERILE WATER INJ 850 ML IV SCH (13:42)
[2016-03-11] MEDS: SIMETHICONE CHEW 125 MG TABLET PO PRN ×2 (16:22→21:12)
--- NOTE | 2016-03-11 17:14 | Cardiothoracic Progress Note ---
Assessment and Plan - Time spent with patient Time spent with patient: Greater than 30 minutes (1) Coronary artery disease Status: Chronic Assessment and plan: Multiple discussions with Dr. Staton, Dr. Santos, and the rest of the cardiology group, led to the decision that I will proceed with high risk single vessel Bypass tomorrow, ARAUJO-LAD, then DR. Santos will plan on stenting right side at a later date. I discussed the issues with the family, as detailed below , I explained that this will be a very high risk procedure however it will provide him with the best chance. They understand and willing to proceed. Risk Model and Variables - STS Adult Cardiac Surgery Database Version 2.81 RISK SCORES About the STS Risk Calculator Procedure: CAB Only Risk of Mortality: 12.949% Morbidity or Mortality: 69.058% Long Length of Stay: 47.652% Short Length of Stay: 3.109% Permanent Stroke: 4.598% Prolonged Ventilation: 47.838% DSW Infection: 2.473% Renal Failure: 45.835% Reoperation: 19.807% Current Visit: Yes Qualifiers: Coronary Disease-Associated Artery/Lesion type: [place] artery Exam (Progress Note) - Constitutional Vitals: Period Temp Pulse Resp BP Sys/Cruz Pulse Ox Last 24 Hr 97.5 F-98.3 F 68-95 15-20 124-137/79-92 93-100 Result/EKG - Labs CBC & BMP: 03/11/16 03:36 03/11/16 03:36 Labs: Laboratory Results - last 24 hr 03/10/16 03/10/16 03/10/16 15:53 21:20 21:20 WBC RBC Hgb Hct MCV MCH MCHC RDW Plt Count MPV Neut % (Auto) Lymph % (Auto) [place] % (Auto) Eos % (Auto) Baso % (Auto) Neut # (Auto) Lymph # (Auto) [place] # (Auto) Eos # (Auto) Baso # (Auto) Total Counted Immature Gran % Nucleated RBC % Immature Gran # Segmented Neutrophils Band Neutrophils Lymphocytes Monocytes Myelocytes Nucleated RBCs # Platelet Estimate Sodium Potassium Chloride Carbon Dioxide Anion Gap BUN Creatinine GFR Calculation BUN/Creatinine Ratio Glucose POC Glucose 215 H Calculated Osmolality Calcium Phosphorus Albumin Ur Random Creatinine 163 Ur Random Urea Nitrogn 640 03/10/16 03/11/16 03/11/16 23:09 03:36 03:36 WBC 8.9 RBC 3.73 L Hgb 9.6 L Hct 28.5 L MCV 76.4 L MCH 26 L MCHC 33.7 RDW 14.0 Plt Count 318 MPV 10.1 Neut % (Auto) 66.6 Lymph % (Auto) 14.7 L [place] % (Auto) 17.3 H Eos % (Auto) 0.4 Baso % (Auto) 0.1 Neut # (Auto) 5.9 Lymph # (Auto) 1.3 L [place] # (Auto) 1.5 H Eos # (Auto) 0.0 Baso # (Auto) 0.0 Total Counted 100 Immature Gran % 0.9 Nucleated RBC % 0.0 Immature Gran # 0.08 Segmented Neutrophils 72 Band Neutrophils 4 Lymphocytes 15 L Monocytes 7 Myelocytes 2 Nucleated RBCs # 0.00 Platelet Estimate Normal Sodium 131 L Potassium 4.0 Chloride 92 L Carbon Dioxide 21 Anion Gap 22.0 H BUN 88 H Creatinine 5.40 H GFR Calculation 14 BUN/Creatinine Ratio 16.00 Glucose 129 H POC Glucose 172 H Calculated Osmolality 290.7 Calcium 8.4 L Phosphorus 5.6 H Albumin 2.3 L Ur Random Creatinine Ur Random Urea Nitrogn 03/11/16 03/11/16 03/11/16 04:04 07:38 11:57 WBC RBC Hgb Hct MCV MCH MCHC RDW Plt Count MPV Neut % (Auto) Lymph % (Auto) [place] % (Auto) Eos % (Auto) Baso % (Auto) Neut # (Auto) Lymph # (Auto) [place] # (Auto) Eos # (Auto) Baso # (Auto) Total Counted Immature Gran % Nucleated RBC % Immature Gran # Segmented Neutrophils Band Neutrophils Lymphocytes Monocytes Myelocytes Nucleated RBCs # Platelet Estimate Sodium Potassium Chloride Carbon Dioxide Anion Gap BUN Creatinine GFR Calculation BUN/Creatinine Ratio Glucose POC Glucose 143 H 146 H 179 H Calculated Osmolality Calcium Phosphorus Albumin Ur Random Creatinine Ur Random Urea Nitrogn 03/11/16 15:53 WBC RBC Hgb Hct MCV MCH MCHC RDW Plt Count MPV Neut % (Auto) Lymph % (Auto) [place] % (Auto) Eos % (Auto) Baso % (Auto) Neut # (Auto) Lymph # (Auto) [place] # (Auto) Eos # (Auto) Baso # (Auto) Total Counted Immature Gran % Nucleated RBC % Immature Gran # Segmented Neutrophils Band Neutrophils Lymphocytes Monocytes Myelocytes Nucleated RBCs # Platelet Estimate Sodium Potassium Chloride Carbon Dioxide Anion Gap BUN Creatinine GFR Calculation BUN/Creatinine Ratio Glucose POC Glucose 148 H Calculated Osmolality Calcium Phosphorus Albumin Ur Random Creatinine Ur Random Urea Nitrogn Specialty Discharge - Follow Up or Referrals
[2016-03-11] MEDS: TAMSULOSIN 0.4 MG CAPSULE PO SCH (20:32)
[2016-03-11] MEDS: ROSUVASTATIN 20 MG TABLET PO SCH (20:32)
[2016-03-12] MEDS: ALBUTEROL/IPRATROPIUM 3 ML NEB RESP TX SCH ×7 (00:44→23:28)
[2016-03-12] MEDS: INSULIN LISPRO 100 UNIT/ML SUBCUT SCH ×4 (00:50→18:32)
[2016-03-12] MEDS: PIPERACILLIN/TAZOBACTAM 3,375 MG in SODIUM CHLORIDE 0.9% 100 ML IV SCH ×2 (02:06→14:50)
[2016-03-12 04:45] LABS: Basophils % 0.1 % (0.0-0.8); Eosinophils % 0.5 % (0.00-10.9); Hematocrit 29.1 VOL% (42.0-52.0); Hemoglobin 9.9 GM/DL (14.0-18.0); Immature Granulocytes % 0.7 %; Immature Granulocytes Absolute 0.06 #; Lymphocytes # 1.5 10*3/uL (1.4-4.0); Lymphocytes % 17.7 % (21.2-54.2); Mean Corpuscular Hemoglobin 26 PG (27-34); Mean Corpuscular Volume 77.2 FL (87-102); Mean Platelet Volume 9.7 FL (9.6-12.0); Monocytes # 1.3 10*3/uL (0.11-0.8); Neutrophils # 5.5 10*3/uL (1.4-7.4); Platelet Count 313 10*3/uL (130-400); Red Blood Count 3.77 10*6/uL (3.8-5.5); White Blood Count 8.4 10*3/uL (4.5-13.71)
[2016-03-12] MEDS ORDERED: PAPAVERINE 60 MG/2 ML VIAL ONE (04:46)
[2016-03-12] MEDS ORDERED: VANCOMYCIN 1,000 MG VIAL ONE (04:47)
[2016-03-12 05:20] LABS: Albumin 2.3 G/DL (3.4-5.0); Calcium 8.3 MG/DL (8.5-10.1); Calcium 8.4 MG/DL (8.5-10.1); Magnesium 2.6 MG/DL (1.8-2.4); Osmolality,Calculated 294.5 MOS/KG (273-304); Osmolality,Calculated 297.4 MOS/KG (273-304); Phosphorous 5.5 MG/DL (2.5-4.9); Potassium 3.9 MMOL/L (3.5-5.1)
[2016-03-12] MEDS: SODIUM BICARBONATE 650 MG TABLET PO SCH ×3 (05:44→21:33)
[2016-03-12] MEDS: CARVEDILOL 3.125 MG TABLET PO SCH ×3 (05:44→21:32)
[2016-03-12] MEDS: ISOSORBIDE MONONITRATE 30 MG TABLET PO SCH ×2 (05:44→13:39)
[2016-03-12] MEDS: PANTOPRAZOLE 40 MG TABLET PO SCH ×2 (05:44→13:40)
[2016-03-12] MEDS: CHLORHEXIDINE 4% SOLN 118 ML BOTTLE TOP SCH (05:45)
[2016-03-12] MEDS ORDERED: TISSUE ADHESIVE 1 EACH APPLICATOR TOP ONE (06:49)
[2016-03-12 07:47] LABS: ABG Base Excess -0.7 MMOL/L (-2.5-2.5); ABG HCO3 23.9 MMOL/L (20-26); ABG PCO2 30.3 MM HG (35-48); ABG PH 7.475 (7.35-7.45); ABG TCO2 20.4 MMOL/L (23-27); Glucose Heart Surgery 147 MG/DL (74-106); Hematocrit Heart Surgery 28.4 PERCENT (42-52); Hemoglobin Heart Surgery 9.2 G/DL (14.0-18.0); Ionized Calcium Arterial 1.06 MMOL/L (1.21-1.46); PCO2 Patient Temp Arterial 30.3 MMHG; PH Patient Temp Arterial 7.475; Patient Temperature 37 CELCIUS; Potassium Heart/CVR 3.3 MMOL/L (3.5-5.1); Sodium Heart/CVR 127 MMOL/L (135-145)
[2016-03-12 09:26] LABS: Hematocrit Heart Surgery 27.4 PERCENT (42-52); Hemoglobin Heart Surgery 8.8 G/DL (14.0-18.0); PCO2 Patient Temp Venous 33.9 MM HG; PH Patient Temp Venous 7.476; PO2 Patient Temp Venous 39.6 MM HG; VBG Base Excess 1.8 MEQ/L (0-4); VBG HCO3 25.7 MEQ/L (24-28); VBG Oxygen Saturation 80.9 %; VBG PCO2 37.3 MMHG (41-51); VBG PH 7.446; VBG PO2 45.5 MMHG (17-40)
[2016-03-12] MEDS ORDERED: PHENYLEPHRINE DRIP 20 MG/250 ML PREMIX IV ONE (10:01)
[2016-03-12] MEDS ORDERED: ALBUMIN 25% 25 GM/100 ML VIAL IV ONE (10:01)
[2016-03-12] MEDS ORDERED: DEXTROSE 5% KCL 20 MEQ 20 MEQ/1,000 ML BAG IV ONE (10:01)
[2016-03-12] MEDS ORDERED: PROTAMINE SULFATE 250 MG/25 ML VIAL IV ONE (10:01)
[2016-03-12] MEDS ORDERED: SODIUM BICARBONATE 50 MEQ/50 ML VIAL IV ONE ×2 (10:01→10:38)
[2016-03-12 10:02] LABS: ABG Base Excess -0.4 MMOL/L (-2.5-2.5); ABG HCO3 24.1 MMOL/L (20-26); ABG PCO2 29.4 MM HG (35-48); ABG TCO2 20.7 MMOL/L (23-27); Glucose Heart Surgery 252 MG/DL (74-106); Hematocrit Heart Surgery 25.9 PERCENT (42-52); Hemoglobin Heart Surgery 8.3 G/DL (14.0-18.0); PCO2 Patient Temp Arterial 29.4 MMHG; Patient Temperature 37 CELCIUS; Potassium Heart/CVR 3.4 MMOL/L (3.5-5.1); Sodium Heart/CVR 124 MMOL/L (135-145)
[2016-03-12] MEDS ORDERED: PROTAMINE SULFATE 50 MG/5 ML VIAL IV ONE ×3 (10:02→12:12)
[2016-03-12] MEDS ORDERED: MAGNESIUM SULFATE 1 GM/2 ML VIAL ONE (10:02)
[2016-03-12] MEDS ORDERED: MANNITOL 12.5 GM/50 ML VIAL IV ONE (10:02)
[2016-03-12] MEDS ORDERED: methylPREDNISolone SOD SUC 1,000 MG/8 ML VIAL ONE (10:02)
[2016-03-12] MEDS ORDERED: HEPARIN 10,000 UNIT/10 ML VIAL ONE (10:02)
[2016-03-12] MEDS ORDERED: FUROSEMIDE 20 MG/2 ML VIAL ONE (10:02)
[2016-03-12 10:18] LABS: Apearance,Urine CLOUDY (Clear); Bacteria,Urine Occasional /HPF (Few); Bilirubin,Urine Negative (Negative); Blood, Urine Negative (Negative); Glucose,Urine (UA) Negative (Negative); Ketones,Urine Negative (Negative); Nitrite,Urine Negative (Negative); Protein,Urine Negative; Squamous Epithelial Cell,Urine Occasional /HPF (0-10); Urine Color Yellow (Yellow); Urine Specific Gravity 1.017 (1.001-1.035); Urine Urobilinogen < 2.0 EU/DL (0.2-1.0); WBC,Urine 3 /HPF (0-6)
[2016-03-12 10:20] LABS: Sperm,Urine Few /HPF (Negative)
[2016-03-12] MEDS ORDERED: CALCIUM CHLORIDE 1,000 MG/10 ML SYRINGE IV ONE ×2 (10:38→11:04)
[2016-03-12] MEDS ORDERED: EPINEPHrine 1 MG/10 ML SYRINGE ONE (10:38)
[2016-03-12] MEDS ORDERED: SEVOFLURANE 1 UNIT/15 MINUTE INH ONE (11:04)
[2016-03-12] MEDS ORDERED: MIDAZOLAM 10 MG/2 ML VIAL ONE (11:04)
[2016-03-12] MEDS ORDERED: VECURONIUM 10 MG VIAL IV ONE (11:05)
[2016-03-12] MEDS ORDERED: MINERAL OIL/PETROLATUM OPH OINT 3.5 GM TUBE ONE (11:05)
[2016-03-12] MEDS ORDERED: AMINOCAPROIC ACID 5,000 MG/20 ML VIAL IV ONE (11:05)
[2016-03-12] MEDS ORDERED: ETOMIDATE 20 MG/10 ML VIAL IV ONE (11:05)
[2016-03-12] MEDS ORDERED: ePHEDrine 50 MG/ML AMP ONE (11:05)
[2016-03-12] MEDS ORDERED: SODIUM CHLORIDE 0.9% 2,000 ML IV ONE (11:06)
[2016-03-12] MEDS ORDERED: SODIUM CHLORIDE 0.9% 250 ML IV ONE (11:06)
[2016-03-12] MEDS ORDERED: MAGNESIUM SULF RIDER 2 GM in PREMIX 1 EACH IV PRN (11:08)
[2016-03-12] MEDS ORDERED: PHENYLEPHRINE DRIP 40 MG/250 ML PREMIX IV PRN (11:08)
[2016-03-12] MEDS ORDERED: CHLORHEXIDINE 4% SOLN 118 ML BOTTLE TOP PRN (11:08)
[2016-03-12] MEDS ORDERED: ALBUMIN 5% 12.5 GM in PREMIX 1 EACH IV PRN (11:08)
[2016-03-12] MEDS ORDERED: VECURONIUM 10 MG VIAL IV PRN ×2 (11:08)
[2016-03-12] MEDS ORDERED: POTASSIUM CHLORIDE RIDER 10 MEQ in PREMIX 1 EACH IV PRN (11:08)
[2016-03-12] MEDS ORDERED: MIDAZOLAM 10 MG/2 ML VIAL IV PRN (11:08)
[2016-03-12] MEDS ORDERED: DEXTROSE 50% 25 GM/50 ML VIAL IV PRN ×2 (11:08)
[2016-03-12] MEDS ORDERED: POTASSIUM CHLORIDE RIDER 20 MEQ in PREMIX 1 EACH IV PRN (11:08)
[2016-03-12] MEDS ORDERED: INSULIN REGULAR 100 UNIT/ML IV PRN (11:08)
[2016-03-12] MEDS ORDERED: MIDAZOLAM 2 MG/2 ML VIAL IV PRN (11:08)
[2016-03-12] MEDS ORDERED: NITROPRUSSIDE 100 MG in DEXTROSE 5% 250 ML IV PRN (11:08)
[2016-03-12] MEDS ORDERED: CALCIUM CHLORIDE 1,000 MG/10 ML SYRINGE IV PRN (11:08)
[2016-03-12] MEDS ORDERED: MAGNESIUM SULF RIDER 4 GM in PREMIX 1 EACH IV PRN (11:08)
[2016-03-12] MEDS ORDERED: ONDANSETRON 4 MG/2 ML VIAL IV PRN (11:08)
[2016-03-12] MEDS ORDERED: MORPHINE 10 MG/1 ML VIAL IV PRN (11:08)
[2016-03-12] MEDS ORDERED: ACETAMINOPHEN 650 MG SUPP RECTAL PRN (11:08)
[2016-03-12] MEDS ORDERED: LACTATED RINGERS 250 ML IV PRN (11:08)
[2016-03-12] MEDS ORDERED: INSULIN REGULAR 100 UNIT/ML IV ONE (11:08)
[2016-03-12] MEDS ORDERED: NITROGLYCERIN DRIP 50 MG/250 ML BOTTLE IV ONE (11:11)
[2016-03-12] MEDS ORDERED: SODIUM CHLORIDE 0.45% 1,000 ML IV SCH ×2 (11:30)
[2016-03-12] MEDS ORDERED: NITROGLYCERIN DRIP 50 MG/250 ML BOTTLE IV SCH (11:30)
[2016-03-12] MEDS ORDERED: INSULIN REGULAR DRIP 100 ML IV SCH (11:30)
[2016-03-12] MEDS: MORPHINE 2 MG/1 ML SYRINGE IV PRN ×3 (11:49→21:32)
[2016-03-12 11:53] LABS: Basophils % 0.1 % (0.0-0.8); Eosinophils # 0.2 10*3/uL (0.0-0.87); Eosinophils % 1.1 % (0.00-10.9); Hematocrit 24.7 VOL% (42.0-52.0); Hemoglobin 8.3 GM/DL (14.0-18.0); Immature Granulocytes Absolute 0.49 #; Lymphocytes # 1.2 10*3/uL (1.4-4.0); Lymphocytes % 7.4 % (21.2-54.2); Mean Corpuscular HGB Conc 33.6 GM/DL (32-36); Mean Corpuscular Hemoglobin 27 PG (27-34); Mean Corpuscular Volume 78.9 FL (87-102); Mean Platelet Volume 9.9 FL (9.6-12.0); Monocytes # 1.1 10*3/uL (0.11-0.8); Monocytes % 6.6 % (1.7-12.7); Neutrophils # 13.2 10*3/uL (1.4-7.4); Neutrophils % 81.8 % (38.7-73.9); Platelet Count 244 10*3/uL (130-400); Red Blood Count 3.13 10*6/uL (3.8-5.5); Red Cell Distribution Width 14.4 % (9.3-17.3); White Blood Count 16.2 10*3/uL (4.5-13.71)
[2016-03-12 12:04] LABS: Hepatitis A Ab IgM Quant 0.12 Index; Hepatitis A Ab IgM Result Negative (Negative); Hepatitis B Core IgM Quant 0.32 Index; Hepatitis B Core IgM Result Negative (Negative); Hepatitis B Surface Ag Quant < 0.10 Index; Hepatitis B Surface Ag Result Negative (Negative); Hepatitis C Virus Ab Quant 0.06 Index; Hepatitis C Virus Ab Result Negative (Negative)
[2016-03-12 12:05] LABS: INR 1.4; PT Patient Result 15.6 SECS; Partial Thromboplastin Time 34.3 SECS (0-40)
[2016-03-12 12:13] LABS: Hematocrit Heart Surgery 25.8 PERCENT (42-52); Hemoglobin Heart Surgery 8.3 G/DL (14.0-18.0); PCO2 Patient Temp Venous 37.7 MM HG; PH Patient Temp Venous 7.401; PO2 Patient Temp Venous 29.9 MM HG; Potassium Heart/CVR 3.6 MMOL/L (3.5-5.1); VBG Base Excess -1.1 MEQ/L (0-4); VBG HCO3 22.8 MEQ/L (24-28); VBG Oxygen Saturation 50.3 %; VBG PCO2 37.7 MMHG (41-51); VBG PH 7.401; VBG PO2 29.9 MMHG (17-40)
[2016-03-12 12:22] LABS: Albumin 2.2 G/DL (3.4-5.0); Bilirubin,Total 0.7 MG/DL (0.2-1.0); Calcium 8.8 MG/DL (8.5-10.1); Magnesium 2.6 MG/DL (1.8-2.4); Osmolality,Calculated 299.4 MOS/KG (273-304); Potassium 3.9 MMOL/L (3.5-5.1)
--- NOTE | 2016-03-12 12:34 | Nephrology Progress Note ---
Nephrology - PN: Subj Interval history: Patient is status post CABG from this morning. He is intubated and sedate Physical exam general patient's chronically ill-appearing, heart is regular rate and rhythm, he has trace pretibial edema, lungs reveal some crackles bilaterally, abdomen is soft with positive bowel sounds Assessment/plan 1. Acute renal failure-this patient's BMP is pending we'll follow this up, his urine output has been about 750 mL this morning about 350 mL since his surgery, the patient has an HD catheter in place, we'll provide dialysis as needed 2. Volume overload-patient's about 4 L positive from his surgery this morning, his O2 sat is presently 100%, presently the patient's getting normal saline at 100 mL an hour, it may be worth holding his IV fluids due to his renal compromise and manage his blood pressure fluctuations with salt poor albumin and pressor agents as indicated. 3. Diabetes mellitus 4. Hypocalcemia-is being replaced per protocol Exam (PN)-Nephrology - Vital Signs Vital signs: Period Temp Pulse Resp BP Sys/Curz Pulse Ox Last 24 Hr 97.3 F-98.7 F 60-74 10-20 108-132/69-91 95-100 - Lab 03/12/16 11:40 03/12/16 11:40 Most recent lab results ABG pH 7.490 (7.35-7.45) H 03/12/16 09:55 ABG pCO2 29.4 MM HG (35-48) L 03/12/16 09:55 ABG pO2 273.0 MM HG (80-95) H 03/12/16 09:55 ABG HCO3 24.1 MMOL/L (20-26) 03/12/16 09:55 ABG O2 Saturation 100.0 % (95-100) 03/12/16 09:55 Calcium 8.8 MG/DL (8.5-10.1) 03/12/16 11:40 Phosphorus 5.5 MG/DL (2.5-4.9) H 03/12/16 03:51 Magnesium 2.6 MG/DL (1.8-2.4) H 03/12/16 11:40 Assessment and Plan (1) Renal failure Status: Acute Assessment and plan: This patient was admitted with a elevated creatinine of 2.1 mg/dL, his baseline is not known. He was making some urine up until the past 3-4 hours. He is presently getting 40 mg of Lasix IV twice a day without response. I suspect this patient has a acute kidney injury related to his myocardial infarction as well as contrast administration. He may also have some underlying chronic kidney disease related to diabetes and hypertension. At this point if he continues without response to the diuretics I will discontinue these. I would also stopped the MIRACLE inhibitor that is been started. Current Visit: Yes (2) Coronary artery disease Status: Chronic Assessment and plan: Patient was admitted with an NC, he is undergone coronary angioplasty, he is being considered for open heart surgery later this week. Current Visit: Yes Qualifiers: Coronary Disease-Associated Artery/Lesion type: [place] artery (3) Diabetes Status: Acute Current Visit: Yes Qualifiers: Diabetes mellitus complication status: with kidney complications Diabetes mellitus complication detail: with nephropathy (4) Hypertension Status: Chronic Current Visit: Yes (5) Non-STEMI (non-ST elevated myocardial infarction) Status: Acute Current Visit: Yes (6) Status post percutaneous transluminal coronary angioplasty Status: Resolved Current Visit: Yes Specialty Discharge - Follow Up or Referrals
[2016-03-12 12:37] LABS: CKMB % 2.9 %
[2016-03-12 12:38] LABS: ABG Base Excess -2.5 MMOL/L (-2.5-2.5); ABG HCO3 22.3 MMOL/L (20-26); ABG PCO2 27.6 MM HG (35-48); ABG PH 7.476 (7.35-7.45); ABG TCO2 19.1 MMOL/L (23-27); Glucose Heart Surgery 248 MG/DL (74-106); Hematocrit Heart Surgery 23.3 PERCENT (42-52); Hemoglobin Heart Surgery 7.5 G/DL (14.0-18.0); Potassium Heart/CVR 3.4 MMOL/L (3.5-5.1)
[2016-03-12 12:40] LABS: Troponin I Only 11.5 NG/ML (0.00-0.045)
--- NOTE | 2016-03-12 13:32 | XRay Report ---
Referring Physician: Varun Bhatt MD Exam: XR chest 1V portable Date: March 12, 2016 at 12:54 PM Reason: Line placement Comparison: Chest one view portable March 06, 2016 Findings: An endotracheal tube is present with its distal tip at the level of the sternoclavicular junctions, approximately 4 cm above the madie. A [place]-Hema catheter is present with its distal tip in the region of the descending right pulmonary artery. Mediastinal drains are in place, and there is a left chest tube with its distal tip at the peripheral aspect of the left midlung zone. The cardiac silhouette is enlarged, and the patient is status post sternotomy. Scattered calcified plaque is seen at the arteries. There are scattered opacities within the mid and lower lung zones bilaterally, mainly on the left. This likely represents atelectasis and pulmonary edema. There may be a small amount of extrapleural air at the peripheral aspect of the left lower lung zone. The osseous structures otherwise appear stable. Impression: 1. Tubes and lines as above. 2. Cardiomegaly and interval sternotomy. 3. There are scattered opacities within the mid and lower lung zones bilaterally, mainly on the left. This likely represents pulmonary edema and atelectasis. 4. A left chest tube is in place with its distal tip at the peripheral aspect of the left midlung zone. There may be a small amount of extrapleural air at the left lower lung zone. PROCEDURE INTERPRETED AT [facility] [place] DEPARTMENT OF RADIOLOGY Final Report Signed by: Dr. Fiorella Fields
[2016-03-12] MEDS: miSOPROStol 200 MCG TABLET PO SCH ×3 (13:37→21:33)
[2016-03-12] MEDS: ASPIRIN EC 81 MG TABLET PO SCH (13:38)
[2016-03-12] MEDS: BISACODYL 5 MG TABLET PO SCH (13:39)
[2016-03-12] MEDS: DOCUSATE SODIUM 100 MG CAPSULE PO SCH ×2 (13:39→21:32)
[2016-03-12] MEDS: INSULIN GLARGINE 100 UNIT/ML SUBCUT SCH (13:39)
[2016-03-12] MEDS: CHLORHEXIDINE 0.12% ORAL RINSE 60 ML BOTTLE SWISH/SPIT SCH ×2 (13:39→21:33)
[2016-03-12] MEDS: SODIUM BICARB INJ 150 MEQ in STERILE WATER INJ 850 ML IV SCH (13:40)
[2016-03-12 13:59] LABS: ABG Base Excess -4.1 MMOL/L (-2.5-2.5); ABG Oxygen Saturation 99.7 % (95-100); ABG PCO2 31.2 MM HG (35-48); ABG PH 7.412 (7.35-7.45); ABG TCO2 18.7 MMOL/L (23-27); Glucose Heart Surgery 253 MG/DL (74-106); Hematocrit Heart Surgery 23.4 PERCENT (42-52); Hemoglobin Heart Surgery 7.5 G/DL (14.0-18.0); Potassium Heart/CVR 3.1 MMOL/L (3.5-5.1)
--- NOTE | 2016-03-12 14:32 | Hospitalist Progress Note ---
Assessment and Plan (1) CAD (coronary artery disease) Status: Chronic Assessment and plan: 1)CAD for CABG tomorrow 2)DM- 146-215. On lantus, SSI 3)ESRD- dialysis on MWF. 4)leukocytosis- resolved. On antibiotics for pneumonia. Current Visit: Yes Qualifiers: Coronary Disease-Associated Artery/Lesion type: [place] artery (2) Ischemic cardiomyopathy Status: Acute Current Visit: Yes (3) Non-STEMI (non-ST elevated myocardial infarction) Status: Acute Current Visit: Yes (4) Renal failure Status: Acute Current Visit: Yes (5) Diabetes mellitus with diabetic nephropathy Status: Chronic Current Visit: Yes (6) Dyslipidemia Status: Chronic Current Visit: Yes (7) Hypertension Status: Chronic Current Visit: Yes Hospitalist: Subjective Interval history: Stopped to see patient post CABG. His accuchecks are a little high, but insulin infusion is being adjusted per protocol. He has some bleeding post op, receiving PRBC and platelets and FFP. He is alert and following commands. Exam - Constitutional Vitals: Period Temp Pulse Resp BP Sys/Cruz Pulse Ox Last 24 Hr 97.2 F-98.7 F 59-74 10-20 97-150/57-91 95-100 Results - Labs CBC & BMP: 03/12/16 11:40 03/12/16 11:40 Quality Measures - VTE Contraindication to Pharmacological VTE Prophylaxis: Active Bleeding Specialty Discharge - Follow Up or Referrals
[2016-03-12 15:19] LABS: ABG Base Excess -3.4 MMOL/L (-2.5-2.5); ABG HCO3 21.5 MMOL/L (20-26); ABG Oxygen Saturation 98.9 % (95-100); ABG PCO2 36.1 MM HG (35-48); ABG PH 7.378 (7.35-7.45); ABG TCO2 19.8 MMOL/L (23-27); Glucose Heart Surgery 242 MG/DL (74-106); Hematocrit Heart Surgery 25.4 PERCENT (42-52); Hemoglobin Heart Surgery 8.2 G/DL (14.0-18.0); Potassium Heart/CVR 3.5 MMOL/L (3.5-5.1)
--- NOTE | 2016-03-12 17:44 | Operative Note ---
Date of procedure: 03/12/16 Pre-op diagnosis: CORONARY ARTERY DISEASE Post-op diagnosis: same Procedure: 1. [place] of the left internal mammary artery 2. Institution of cardiopulmonary bypass 3. Coronary artery bypass 1, ARAUJO to LAD Details of the procedure: The patient was brought into the OR placed supine on the OR table and general endotracheal anesthesia was induced without any problems. Antibiotics were given. Chest was prepped and draped in the usual sterile fashion. Timeout was performed. I then proceeded with opening the chest at midline. The sternum was opened. Hemostasis was achieved. I then proceeded with dissecting the left internal mammary artery. This was performed from the first rib all the way down to the xiphisternum. It was functioning properly. Hemostasis at the chest wall was achieved. I then proceeded with opening the pericardium. The patient had a large amount of pericardial effusion. I then started cannulating the aorta as well as do a stage cannulation of the right atrium and IVC. Bypass was started. I then proceeded with prepping the mammary as well as inserting the cardioplegia needle. Cross-clamp was applied and quadriplegia was given. The heart arrested successfully. I then proceeded with identifying the distal target at the left anterior descending artery. A soft spot was identified and distal anastomosis was achieved between the ARAUJO to LAD using 7-0 Prolene. I then proceeded after that with removing the cross- clamp. The heart recovered successfully. Sinus rhythm with obtained. The The patient was noted to have coagulopathy, likely related to him receiving Lovenox therapeutic while he is almost end-stage renal disease. Hemostasis surgically was achieved. I then proceeded with weaning off bypass which he did well. I then decannulated him successfully. Again paid attention to hemostasis. CORRECT AT THE END OF THE PROCEDURE. WIRES WERE USED TO CLOSE THE STERNUM. SUBCUTANEOUS TISSUES WAS CLOSED USING RUNNING PDS. SKIN WAS CLOSED USING MONOCRYL. ALL COUNTS ARE CORRECT AGAIN AT THE END OF THE PROCEDURE. THE PATIENT WAS TRANSFERRED TO THE ICU IN GOOD CONDITION Anesthesia: BETH Surgeon / Physician: Varun Bhatt Pin Sorter And Bagger: Roshni Chan Estimated blood loss: other (CBP) Urine output: 300 Specimens: none sent Condition: stable Disposition: ICU Results - Labs CBC & BMP: 03/12/16 11:40 03/12/16 11:40 Discharge Plan - Discharge Medications No Action Insulin NPH/Regular 70/30 [HumuLIN 70/30] 15 unit SUBCUT QAM PRN PRN Reason: GREATER THAN 150MG/DL Lisinopril 20 mg PO DAILY Insulin NPH/Regular 70/30 [HumuLIN 70/30] 10 unit SUBCUT QPM PRN PRN Reason: GREATER THAN 150 MG/DL amLODIPine [Norvasc] 10 mg PO DAILY - Follow Up or Referral - Forms/Instructions Instructions: Myocardial Infarction (GEN), Coronary Artery Disease (GEN), Heart Healthy Diet (GEN), Coronary Angioplasty, [employer] (GEN)
[2016-03-12 17:53] LABS: ABG Base Excess -1.3 MMOL/L (-2.5-2.5); ABG HCO3 22.5 MMOL/L (20-26); ABG Oxygen Saturation 98.2 % (95-100); ABG PCO2 33.2 MM HG (35-48); ABG PH 7.448 (7.35-7.45); ABG PO2 130.8 MM HG (80-95); ABG TCO2 23.5 MMOL/L (23-27); Glucose Heart Surgery 181 MG/DL (74-106); Hemoglobin Heart Surgery 7.8 G/DL (14.0-18.0); Potassium Heart/CVR 3.4 MMOL/L (3.5-5.1)
--- NOTE | 2016-03-12 20:04 | Anesthesia ---
Anesthesia Post OP - Post Ansesthetic Evaluation Patient seen in post op: Yes Resp: within normal limits CV: within normal limits Mental: within normal limits Temp: within normal limits Lzew-Yl-Vjdkyiqtd: within normal limits Nausea and Vomiting: within normal limits Pain: within normal limits
[2016-03-12 20:51] LABS: CKMB % 1.2 %; Troponin I Only 10.1 NG/ML (0.00-0.045)
[2016-03-12] MEDS ORDERED: HEPARIN 10,000 UNIT/10 ML VIAL IV SCH (21:00)
[2016-03-12] MEDS ORDERED: CHLORHEXIDINE 0.12% ORAL RINSE 60 ML BOTTLE SWISH/SPIT SCH (21:00)
[2016-03-12] MEDS: LEVOFLOXACIN INJ 750 MG in PREMIX 1 EACH IV SCH (21:31)
[2016-03-12] MEDS: TAMSULOSIN 0.4 MG CAPSULE PO SCH (21:33)
[2016-03-12] MEDS: ROSUVASTATIN 20 MG TABLET PO SCH (21:33)
[2016-03-13] MEDS: INSULIN LISPRO 100 UNIT/ML SUBCUT SCH ×2 (00:05→06:00)
[2016-03-13] MEDS: PIPERACILLIN/TAZOBACTAM 3,375 MG in SODIUM CHLORIDE 0.9% 100 ML IV SCH ×2 (01:53→13:55)
[2016-03-13] MEDS: ALBUTEROL/IPRATROPIUM 3 ML NEB RESP TX SCH ×6 (03:41→23:29)
[2016-03-13 04:20] LABS: ABG Base Excess -2.8 MMOL/L (-2.5-2.5); ABG HCO3 22.1 MMOL/L (20-26); ABG Oxygen Saturation 97.4 % (95-100); ABG PCO2 38.5 MM HG (35-48); ABG PH 7.368 (7.35-7.45); ABG TCO2 20.5 MMOL/L (23-27); Glucose Heart Surgery 94 MG/DL (74-106); Hematocrit Heart Surgery 27.6 PERCENT (42-52); Hemoglobin Heart Surgery 8.9 G/DL (14.0-18.0); Potassium Heart/CVR 3.9 MMOL/L (3.5-5.1)
[2016-03-13 04:30] LABS: Basophils % 0.1 % (0.0-0.8); Hematocrit 26.1 VOL% (42.0-52.0); Hemoglobin 8.8 GM/DL (14.0-18.0); Immature Granulocytes % 0.5 %; Immature Granulocytes Absolute 0.08 #; Lymphocytes # 0.8 10*3/uL (1.4-4.0); Lymphocytes % 4.6 % (21.2-54.2); Mean Corpuscular HGB Conc 33.7 GM/DL (32-36); Mean Corpuscular Hemoglobin 28 PG (27-34); Mean Corpuscular Volume 83.1 FL (87-102); Mean Platelet Volume 10.4 FL (9.6-12.0); Monocytes # 1.2 10*3/uL (0.11-0.8); Monocytes % 6.9 % (1.7-12.7); Neutrophils # 14.8 10*3/uL (1.4-7.4); Neutrophils % 87.9 % (38.7-73.9); Platelet Count 252 10*3/uL (130-400); Red Blood Count 3.14 10*6/uL (3.8-5.5); Red Cell Distribution Width 15.2 % (9.3-17.3); White Blood Count 16.9 10*3/uL (4.5-13.71)
[2016-03-13 04:48] LABS: Albumin 2.5 G/DL (3.4-5.0); Calcium 8.2 MG/DL (8.5-10.1); Phosphorous 5.5 MG/DL (2.5-4.9); Potassium 4.1 MMOL/L (3.5-5.1)
[2016-03-13 04:49] LABS: Albumin 2.5 G/DL (3.4-5.0); Bilirubin,Total 0.6 MG/DL (0.2-1.0); Calcium 8.2 MG/DL (8.5-10.1); Total Protein 5.4 G/DL (6.4-8.3)
[2016-03-13 04:50] LABS: Magnesium 2.5 MG/DL (1.8-2.4); Potassium 4.1 MMOL/L (3.5-5.1)
[2016-03-13 04:55] LABS: Band Neutrophils 5 % (0-10); Hypochromasia 1+; Lymphocytes 3 % (20-55); Microcytosis 1+; Ovalocytes Slight; Polychromasia Slight; Segmented Neutrophils 86 % (50-85); Total Cells Counted 100
[2016-03-13 04:56] LABS: Platelet Estimate Adequate
--- NOTE | 2016-03-13 06:32 | XRay Report ---
Portable chest. Indication: Status post chest tube removal. Comparison: . The heart is enlarged. Post median sternotomy. Endotracheal tube has been removed. A Jaroso-Hema catheter is in satisfactory position with the distal tip in the pulmonary outflow on the right. 2 mediastinal chest tubes project over the midline. There is also a left-sided chest tube. These all remain in satisfactory position. The pulmonary vasculature is prominent. There is new atelectasis at the right lung base with a new right pleural effusion. Atelectasis and pleural effusion at the left base has worsened. No pneumothorax is seen. Degenerative changes of the spinal column and shoulders. Impression: Interval worsening. No pneumothorax. PROCEDURE INTERPRETED AT [facility] DEPARTMENT OF RADIOLOGY Final Report Signed by: Dr. Sophie Jerome
--- NOTE | 2016-03-13 07:14 | EKG Report ---
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
[2016-03-13] MEDS: MORPHINE 2 MG/1 ML SYRINGE IV PRN (08:11)
--- NOTE | 2016-03-13 08:50 | Cardiothoracic Progress Note ---
Assessment and Plan (1) Coronary artery disease Status: Chronic Assessment and plan: POD1 s/p CABG. OOB, ASA, Statin, BB, Adv diet, HD today, CT to waterseal. KARRIE Lucero DC A-line. Current Visit: Yes Qualifiers: Coronary Disease-Associated Artery/Lesion type: tanana artery Cardiothoracic Subjective Interval history: POD1 S/P CABG, extubated yesterday and doing very well. Received HD, and blood products due to coagulopathy. Exam (Progress Note) - Constitutional Vitals: Period Temp Pulse Resp BP Sys/Cruz Pulse Ox Last 24 Hr 97.0 F-97.9 F 59-68 8-20 79-150/49-88 98-100 Result/EKG - Labs CBC & BMP: 03/13/16 04:15 03/13/16 04:15 Labs: Laboratory Results - last 24 hr 03/07/16 03/11/16 03/12/16 05:47 22:23 05:00 WBC RBC Hgb Hct MCV MCH MCHC RDW Plt Count MPV Neut % (Auto) Lymph % (Auto) [place] % (Auto) Eos % (Auto) Baso % (Auto) Neut # (Auto) Lymph # (Auto) [place] # (Auto) Eos # (Auto) Baso # (Auto) Total Counted Immature Gran % Nucleated RBC % Immature Gran # Segmented Neutrophils Band Neutrophils Lymphocytes Monocytes Nucleated RBCs # Platelet Estimate Polychromasia Hypochromasia Microcytosis Ovalocytes INR PT Patient/Control Mix Circ Anticoag PTT Patient Temperature ABG pH ABG pH at Pt Temp ABG pCO2 ABG pCO2 at Pt Temp ABG pO2 ABG pO2 at Pt Temp ABG HCO3 ABG Total CO2 ABG O2 Saturation ABG Base Excess ABG Sodium VBG pH VBG pCO2 VBG pO2 VBG HCO3 VBG Total CO2 VBG O2 Saturation VBG Base Excess Hemoglobin Hematocrit Potassium Glucose Ionized Calcium FiO2 Sodium Chloride Carbon Dioxide Anion Gap BUN Creatinine GFR Calculation BUN/Creatinine Ratio POC Glucose Calculated Osmolality Lactic Acid Calcium Venous Ioniz Calcium Phosphorus Magnesium Total Bilirubin AST ALT Alkaline Phosphatase Total Creatine Kinase CK-MB (CK-2) CK and CKMB Interp Troponin I Total Protein Albumin Globulin Albumin/Globulin Ratio Urine Color Urine Appearance Urine pH Ur Specific [place] Urine Protein Urine Glucose (UA) Urine Ketones Urine Blood Urine Nitrate Urine Bilirubin Urine Urobilinogen Urine Leukocytes Urine WBC Ur Squamous Epith Cells Urine Bacteria Urine Sperm Ur Culture Indicated? Hepatitis A IgM Ab Negative Hep Bs Antigen Negative Hep B Core IgM Ab Negative Hepatitis C Antibody Negative Blood Type O POSITIVE O POSITIVE Antibody Screen Negative Negative Crossmatch See Detail See Detail Blood Bank Comment 03/12/16 03/12/16 03/12/16 07:15 09:20 09:55 WBC RBC Hgb Hct MCV MCH MCHC RDW Plt Count 170 D MPV Neut % (Auto) Lymph % (Auto) [place] % (Auto) Eos % (Auto) Baso % (Auto) Neut # (Auto) Lymph # (Auto) [place] # (Auto) Eos # (Auto) Baso # (Auto) Total Counted Immature Gran % Nucleated RBC % Immature Gran # Segmented Neutrophils Band Neutrophils Lymphocytes Monocytes Nucleated RBCs # Platelet Estimate Polychromasia Hypochromasia Microcytosis Ovalocytes INR PT Patient/Control Mix Circ Anticoag PTT Patient Temperature 35 ABG pH ABG pH at Pt Temp 7.476 ABG pCO2 ABG pCO2 at Pt Temp 33.9 ABG pO2 ABG pO2 at Pt Temp 39.6 ABG HCO3 ABG Total CO2 ABG O2 Saturation ABG Base Excess ABG Sodium 125 L VBG pH 7.446 VBG pCO2 37.3 L VBG pO2 45.5 H VBG HCO3 25.7 VBG Total CO2 23.8 VBG O2 Saturation 80.9 VBG Base Excess 1.8 Hemoglobin 8.8 L Hematocrit 27.4 L Potassium 4.0 Glucose 327 H Ionized Calcium FiO2 80.00 Sodium Chloride Carbon Dioxide Anion Gap BUN Creatinine GFR Calculation BUN/Creatinine Ratio POC Glucose Calculated Osmolality Lactic Acid Calcium Venous Ioniz Calcium 0.87 L Phosphorus Magnesium Total Bilirubin AST ALT Alkaline Phosphatase Total Creatine Kinase CK-MB (CK-2) CK and CKMB Interp Troponin I Total Protein Albumin Globulin Albumin/Globulin Ratio Urine Color Yellow Urine Appearance Cloudy Urine pH 5.0 Ur Specific [place] 1.017 Urine Protein Negative Urine Glucose (UA) Negative Urine Ketones Negative Urine Blood Negative Urine Nitrate Negative Urine Bilirubin Negative Urine Urobilinogen < 2.0 H Urine Leukocytes Trace Urine WBC 3 Ur Squamous Epith Cells Occasional Urine Bacteria Occasional Urine Sperm Few Ur Culture Indicated? Not indicated Hepatitis A IgM Ab Hep Bs Antigen Hep B Core IgM Ab Hepatitis C Antibody Blood Type Antibody Screen Crossmatch Blood Bank Comment 03/12/16 03/12/16 03/12/16 09:55 11:40 11:40 WBC 16.2 H D RBC 3.13 L Hgb 8.3 L Hct 24.7 L MCV 78.9 L MCH 27 MCHC 33.6 RDW 14.4 Plt Count 244 D MPV 9.9 Neut % (Auto) 81.8 H Lymph % (Auto) 7.4 L [place] % (Auto) 6.6 Eos % (Auto) 1.1 Baso % (Auto) 0.1 Neut # (Auto) 13.2 H Lymph # (Auto) 1.2 L [place] # (Auto) 1.1 H Eos # (Auto) 0.2 Baso # (Auto) 0.0 Total Counted Immature Gran % 3.0 Nucleated RBC % 0.0 Immature Gran # 0.49 Segmented Neutrophils Band Neutrophils Lymphocytes Monocytes Nucleated RBCs # 0.00 Platelet Estimate Polychromasia Hypochromasia Microcytosis Ovalocytes INR 1.4 PT Patient/Control Mix 15.6 D Circ Anticoag PTT 34.3 Patient Temperature 37 ABG pH 7.490 H ABG pH at Pt Temp 7.490 ABG pCO2 29.4 L ABG pCO2 at Pt Temp 29.4 ABG pO2 273.0 H ABG pO2 at Pt Temp 273.0 ABG HCO3 24.1 ABG Total CO2 20.7 L ABG O2 Saturation 100.0 ABG Base Excess -0.4 ABG Sodium 124 L VBG pH VBG pCO2 VBG pO2 VBG HCO3 VBG Total CO2 VBG O2 Saturation VBG Base Excess Hemoglobin 8.3 L Hematocrit 25.9 L Potassium 3.4 L Glucose 252 H Ionized Calcium 1.10 L FiO2 Sodium Chloride Carbon Dioxide Anion Gap BUN Creatinine GFR Calculation BUN/Creatinine Ratio POC Glucose Calculated Osmolality Lactic Acid Calcium Venous Ioniz Calcium Phosphorus Magnesium Total Bilirubin AST ALT Alkaline Phosphatase Total Creatine Kinase CK-MB (CK-2) CK and CKMB Interp Troponin I Total Protein Albumin Globulin Albumin/Globulin Ratio Urine Color Urine Appearance Urine pH Ur Specific [place] Urine Protein Urine Glucose (UA) Urine Ketones Urine Blood Urine Nitrate Urine Bilirubin Urine Urobilinogen Urine Leukocytes Urine WBC Ur Squamous Epith Cells Urine Bacteria Urine Sperm Ur Culture Indicated? Hepatitis A IgM Ab Hep Bs Antigen Hep B Core IgM Ab Hepatitis C Antibody Blood Type Antibody Screen Crossmatch Blood Bank Comment 03/12/16 03/12/16 03/12/16 11:40 11:40 12:00 WBC RBC Hgb Hct MCV MCH MCHC RDW Plt Count MPV Neut % (Auto) Lymph % (Auto) [place] % (Auto) Eos % (Auto) Baso % (Auto) Neut # (Auto) Lymph # (Auto) [place] # (Auto) Eos # (Auto) Baso # (Auto) Total Counted Immature Gran % Nucleated RBC % Immature Gran # Segmented Neutrophils Band Neutrophils Lymphocytes Monocytes Nucleated RBCs # Platelet Estimate Polychromasia Hypochromasia Microcytosis Ovalocytes INR PT Patient/Control Mix Circ Anticoag PTT Patient Temperature 37 ABG pH ABG pH at Pt Temp 7.401 ABG pCO2 ABG pCO2 at Pt Temp 37.7 ABG pO2 ABG pO2 at Pt Temp 29.9 ABG HCO3 ABG Total CO2 ABG O2 Saturation ABG Base Excess ABG Sodium 128 L VBG pH 7.401 VBG pCO2 37.7 L VBG pO2 29.9 VBG HCO3 22.8 L VBG Total CO2 22.0 VBG O2 Saturation 50.3 VBG Base Excess -1.1 L Hemoglobin 8.3 L Hematocrit 25.8 L Potassium 3.9 3.6 Glucose 232 H 244 H Ionized Calcium FiO2 21.00 Sodium 133 L Chloride 94 L Carbon Dioxide 21 Anion Gap 21.9 H BUN 89 H Creatinine 4.80 H GFR Calculation 16 BUN/Creatinine Ratio 18.00 POC Glucose Calculated Osmolality 299.4 Lactic Acid Calcium 8.8 Venous Ioniz Calcium 1.13 L Phosphorus Magnesium 2.6 H Total Bilirubin 0.70 AST 50 H ALT 45 Alkaline Phosphatase 96 Total Creatine Kinase 224 CK-MB (CK-2) 6.4 H CK and CKMB Interp 2.9 Troponin I 11.500 H Total Protein 5.0 L Albumin 2.2 L Globulin 2.8 Albumin/Globulin Ratio 0.7 L Urine Color Urine Appearance Urine pH Ur Specific [place] Urine Protein Urine Glucose (UA) Urine Ketones Urine Blood Urine Nitrate Urine Bilirubin Urine Urobilinogen Urine Leukocytes Urine WBC Ur Squamous Epith Cells Urine Bacteria Urine Sperm Ur Culture Indicated? Hepatitis A IgM Ab Hep Bs Antigen Hep B Core IgM Ab Hepatitis C Antibody Blood Type Antibody Screen Crossmatch Blood Bank Comment 03/12/16 03/12/16 03/12/16 12:05 12:33 13:18 WBC RBC Hgb Hct MCV MCH MCHC RDW Plt Count MPV Neut % (Auto) Lymph % (Auto) [place] % (Auto) Eos % (Auto) Baso % (Auto) Neut # (Auto) Lymph # (Auto) [place] # (Auto) Eos # (Auto) Baso # (Auto) Total Counted Immature Gran % Nucleated RBC % Immature Gran # Segmented Neutrophils Band Neutrophils Lymphocytes Monocytes Nucleated RBCs # Platelet Estimate Polychromasia Hypochromasia Microcytosis Ovalocytes INR PT Patient/Control Mix Circ Anticoag PTT Patient Temperature ABG pH 7.476 H ABG pH at Pt Temp ABG pCO2 27.6 L ABG pCO2 at Pt Temp ABG pO2 386.0 H ABG pO2 at Pt Temp ABG HCO3 22.3 ABG Total CO2 19.1 L ABG O2 Saturation 100.0 ABG Base Excess -2.5 ABG Sodium VBG pH VBG pCO2 VBG pO2 VBG HCO3 VBG Total CO2 VBG O2 Saturation VBG Base Excess Hemoglobin 7.5 L Hematocrit 23.3 L Potassium 3.4 L Glucose 248 H Ionized Calcium FiO2 Sodium Chloride Carbon Dioxide Anion Gap BUN Creatinine GFR Calculation BUN/Creatinine Ratio POC Glucose 260 H Calculated Osmolality Lactic Acid 1.4 Calcium Venous Ioniz Calcium Phosphorus Magnesium Total Bilirubin AST ALT Alkaline Phosphatase Total Creatine Kinase CK-MB (CK-2) CK and CKMB Interp Troponin I Total Protein Albumin Globulin Albumin/Globulin Ratio Urine Color Urine Appearance Urine pH Ur Specific [place] Urine Protein Urine Glucose (UA) Urine Ketones Urine Blood Urine Nitrate Urine Bilirubin Urine Urobilinogen Urine Leukocytes Urine WBC Ur Squamous Epith Cells Urine Bacteria Urine Sperm Ur Culture Indicated? Hepatitis A IgM Ab Hep Bs Antigen Hep B Core IgM Ab Hepatitis C Antibody Blood Type Antibody Screen Crossmatch Blood Bank Comment 03/12/16 03/12/16 03/12/16 13:37 14:41 14:53 WBC RBC Hgb Hct MCV MCH MCHC RDW Plt Count MPV Neut % (Auto) Lymph % (Auto) [place] % (Auto) Eos % (Auto) Baso % (Auto) Neut # (Auto) Lymph # (Auto) [place] # (Auto) Eos # (Auto) Baso # (Auto) Total Counted Immature Gran % Nucleated RBC % Immature Gran # Segmented Neutrophils Band Neutrophils Lymphocytes Monocytes Nucleated RBCs # Platelet Estimate Polychromasia Hypochromasia Microcytosis Ovalocytes INR PT Patient/Control Mix Circ Anticoag PTT Patient Temperature ABG pH 7.412 7.378 ABG pH at Pt Temp ABG pCO2 31.2 L 36.1 ABG pCO2 at Pt Temp ABG pO2 216.0 H 128.0 H ABG pO2 at Pt Temp ABG HCO3 21.0 21.5 ABG Total CO2 18.7 L 19.8 L ABG O2 Saturation 99.7 98.9 ABG Base Excess -4.1 L -3.4 L ABG Sodium VBG pH VBG pCO2 VBG pO2 VBG HCO3 VBG Total CO2 VBG O2 Saturation VBG Base Excess Hemoglobin 7.5 L 8.2 L Hematocrit 23.4 L 25.4 L Potassium 3.1 L 3.5 Glucose 253 H 242 H Ionized Calcium FiO2 Sodium Chloride Carbon Dioxide Anion Gap BUN Creatinine GFR Calculation BUN/Creatinine Ratio POC Glucose Calculated Osmolality Lactic Acid Calcium Venous Ioniz Calcium Phosphorus Magnesium Total Bilirubin AST ALT Alkaline Phosphatase Total Creatine Kinase CK-MB (CK-2) CK and CKMB Interp Troponin I Total Protein Albumin Globulin Albumin/Globulin Ratio Urine Color Urine Appearance Urine pH Ur Specific [place] Urine Protein Urine Glucose (UA) Urine Ketones Urine Blood Urine Nitrate Urine Bilirubin Urine Urobilinogen Urine Leukocytes Urine WBC Ur Squamous Epith Cells Urine Bacteria Urine Sperm Ur Culture Indicated? Hepatitis A IgM Ab Hep Bs Antigen Hep B Core IgM Ab Hepatitis C Antibody Blood Type Cancelled Antibody Screen Cancelled Crossmatch See Detail Blood Bank Comment Cancelled 03/12/16 03/12/16 03/12/16 16:53 17:00 17:48 WBC RBC Hgb Hct MCV MCH MCHC RDW Plt Count MPV Neut % (Auto) Lymph % (Auto) [place] % (Auto) Eos % (Auto) Baso % (Auto) Neut # (Auto) Lymph # (Auto) [place] # (Auto) Eos # (Auto) Baso # (Auto) Total Counted Immature Gran % Nucleated RBC % Immature Gran # Segmented Neutrophils Band Neutrophils Lymphocytes Monocytes Nucleated RBCs # Platelet Estimate Polychromasia Hypochromasia Microcytosis Ovalocytes INR PT Patient/Control Mix Circ Anticoag PTT Patient Temperature ABG pH 7.448 ABG pH at Pt Temp ABG pCO2 33.2 L ABG pCO2 at Pt Temp ABG pO2 130.8 H ABG pO2 at Pt Temp ABG HCO3 22.5 ABG Total CO2 23.5 ABG O2 Saturation 98.2 ABG Base Excess -1.3 ABG Sodium VBG pH VBG pCO2 VBG pO2 VBG HCO3 VBG Total CO2 VBG O2 Saturation VBG Base Excess Hemoglobin 7.8 L Hematocrit 23.0 L Potassium 3.4 L Glucose 181 H Ionized Calcium FiO2 Sodium Chloride Carbon Dioxide Anion Gap BUN Creatinine GFR Calculation BUN/Creatinine Ratio POC Glucose 193 H Calculated Osmolality Lactic Acid 1.5 Calcium Venous Ioniz Calcium Phosphorus Magnesium Total Bilirubin AST ALT Alkaline Phosphatase Total Creatine Kinase CK-MB (CK-2) CK and CKMB Interp Troponin I Total Protein Albumin Globulin Albumin/Globulin Ratio Urine Color Urine Appearance Urine pH Ur Specific [place] Urine Protein Urine Glucose (UA) Urine Ketones Urine Blood Urine Nitrate Urine Bilirubin Urine Urobilinogen Urine Leukocytes Urine WBC Ur Squamous Epith Cells Urine Bacteria Urine Sperm Ur Culture Indicated? Hepatitis A IgM Ab Hep Bs Antigen Hep B Core IgM Ab Hepatitis C Antibody Blood Type Antibody Screen Crossmatch Blood Bank Comment 03/12/16 03/12/16 03/12/16 19:05 20:11 20:15 WBC RBC Hgb Hct MCV MCH MCHC RDW Plt Count MPV Neut % (Auto) Lymph % (Auto) [place] % (Auto) Eos % (Auto) Baso % (Auto) Neut # (Auto) Lymph # (Auto) [place] # (Auto) Eos # (Auto) Baso # (Auto) Total Counted Immature Gran % Nucleated RBC % Immature Gran # Segmented Neutrophils Band Neutrophils Lymphocytes Monocytes Nucleated RBCs # Platelet Estimate Polychromasia Hypochromasia Microcytosis Ovalocytes INR PT Patient/Control Mix Circ Anticoag PTT Patient Temperature ABG pH ABG pH at Pt Temp ABG pCO2 ABG pCO2 at Pt Temp ABG pO2 ABG pO2 at Pt Temp ABG HCO3 ABG Total CO2 ABG O2 Saturation ABG Base Excess ABG Sodium VBG pH VBG pCO2 VBG pO2 VBG HCO3 VBG Total CO2 VBG O2 Saturation VBG Base Excess Hemoglobin Hematocrit Potassium Glucose Ionized Calcium FiO2 Sodium Chloride Carbon Dioxide Anion Gap BUN Creatinine GFR Calculation BUN/Creatinine Ratio POC Glucose 195 H 121 H Calculated Osmolality Lactic Acid Calcium Venous Ioniz Calcium Phosphorus Magnesium Total Bilirubin AST ALT Alkaline Phosphatase Total Creatine Kinase 467 H D CK-MB (CK-2) 5.7 H CK and CKMB Interp 1.2 Troponin I 10.100 H Total Protein Albumin Globulin Albumin/Globulin Ratio Urine Color Urine Appearance Urine pH Ur Specific [place] Urine Protein Urine Glucose (UA) Urine Ketones Urine Blood Urine Nitrate Urine Bilirubin Urine Urobilinogen Urine Leukocytes Urine WBC Ur Squamous Epith Cells Urine Bacteria Urine Sperm Ur Culture Indicated? Hepatitis A IgM Ab Hep Bs Antigen Hep B Core IgM Ab Hepatitis C Antibody Blood Type Antibody Screen Crossmatch Blood Bank Comment 03/12/16 03/12/16 03/12/16 21:24 22:11 23:05 WBC RBC Hgb Hct MCV MCH MCHC RDW Plt Count MPV Neut % (Auto) Lymph % (Auto) [place] % (Auto) Eos % (Auto) Baso % (Auto) Neut # (Auto) Lymph # (Auto) [place] # (Auto) Eos # (Auto) Baso # (Auto) Total Counted Immature Gran % Nucleated RBC % Immature Gran # Segmented Neutrophils Band Neutrophils Lymphocytes Monocytes Nucleated RBCs # Platelet Estimate Polychromasia Hypochromasia Microcytosis Ovalocytes INR PT Patient/Control Mix Circ Anticoag PTT Patient Temperature ABG pH ABG pH at Pt Temp ABG pCO2 ABG pCO2 at Pt Temp ABG pO2 ABG pO2 at Pt Temp ABG HCO3 ABG Total CO2 ABG O2 Saturation ABG Base Excess ABG Sodium VBG pH VBG pCO2 VBG pO2 VBG HCO3 VBG Total CO2 VBG O2 Saturation VBG Base Excess Hemoglobin Hematocrit Potassium Glucose Ionized Calcium FiO2 Sodium Chloride Carbon Dioxide Anion Gap BUN Creatinine GFR Calculation BUN/Creatinine Ratio POC Glucose 111 H 107 H 117 H Calculated Osmolality Lactic Acid Calcium Venous Ioniz Calcium Phosphorus Magnesium Total Bilirubin AST ALT Alkaline Phosphatase Total Creatine Kinase CK-MB (CK-2) CK and CKMB Interp Troponin I Total Protein Albumin Globulin Albumin/Globulin Ratio Urine Color Urine Appearance Urine pH Ur Specific [place] Urine Protein Urine Glucose (UA) Urine Ketones Urine Blood Urine Nitrate Urine Bilirubin Urine Urobilinogen Urine Leukocytes Urine WBC Ur Squamous Epith Cells Urine Bacteria Urine Sperm Ur Culture Indicated? Hepatitis A IgM Ab Hep Bs Antigen Hep B Core IgM Ab Hepatitis C Antibody Blood Type Antibody Screen Crossmatch Blood Bank Comment 03/13/16 03/13/16 03/13/16 00:05 01:10 02:05 WBC RBC Hgb Hct MCV MCH MCHC RDW Plt Count MPV Neut % (Auto) Lymph % (Auto) [place] % (Auto) Eos % (Auto) Baso % (Auto) Neut # (Auto) Lymph # (Auto) [place] # (Auto) Eos # (Auto) Baso # (Auto) Total Counted Immature Gran % Nucleated RBC % Immature Gran # Segmented Neutrophils Band Neutrophils Lymphocytes Monocytes Nucleated RBCs # Platelet Estimate Polychromasia Hypochromasia Microcytosis Ovalocytes INR PT Patient/Control Mix Circ Anticoag PTT Patient Temperature ABG pH ABG pH at Pt Temp ABG pCO2 ABG pCO2 at Pt Temp ABG pO2 ABG pO2 at Pt Temp ABG HCO3 ABG Total CO2 ABG O2 Saturation ABG Base Excess ABG Sodium VBG pH VBG pCO2 VBG pO2 VBG HCO3 VBG Total CO2 VBG O2 Saturation VBG Base Excess Hemoglobin Hematocrit Potassium Glucose Ionized Calcium FiO2 Sodium Chloride Carbon Dioxide Anion Gap BUN Creatinine GFR Calculation BUN/Creatinine Ratio POC Glucose 94 103 112 H Calculated Osmolality Lactic Acid Calcium Venous Ioniz Calcium Phosphorus Magnesium Total Bilirubin AST ALT Alkaline Phosphatase Total Creatine Kinase CK-MB (CK-2) CK and CKMB Interp Troponin I Total Protein Albumin Globulin Albumin/Globulin Ratio Urine Color Urine Appearance Urine pH Ur Specific [place] Urine Protein Urine Glucose (UA) Urine Ketones Urine Blood Urine Nitrate Urine Bilirubin Urine Urobilinogen Urine Leukocytes Urine WBC Ur Squamous Epith Cells Urine Bacteria Urine Sperm Ur Culture Indicated? Hepatitis A IgM Ab Hep Bs Antigen Hep B Core IgM Ab Hepatitis C Antibody Blood Type Antibody Screen Crossmatch Blood Bank Comment 03/13/16 03/13/16 03/13/16 03:09 04:15 04:15 WBC 16.9 H RBC 3.14 L Hgb 8.8 L Hct 26.1 L MCV 83.1 L MCH 28 MCHC 33.7 RDW 15.2 Plt Count 252 MPV 10.4 Neut % (Auto) 87.9 H Lymph % (Auto) 4.6 L [place] % (Auto) 6.9 Eos % (Auto) 0.0 Baso % (Auto) 0.1 Neut # (Auto) 14.8 H Lymph # (Auto) 0.8 L [place] # (Auto) 1.2 H Eos # (Auto) 0.0 Baso # (Auto) 0.0 Total Counted 100 Immature Gran % 0.5 Nucleated RBC % 0.0 Immature Gran # 0.08 Segmented Neutrophils 86 H Band Neutrophils 5 Lymphocytes 3 L Monocytes 6 Nucleated RBCs # 0.00 Platelet Estimate Adequate Polychromasia Slight Hypochromasia 1+ Microcytosis 1+ Ovalocytes Slight INR PT Patient/Control Mix Circ Anticoag PTT Patient Temperature ABG pH ABG pH at Pt Temp ABG pCO2 ABG pCO2 at Pt Temp ABG pO2 ABG pO2 at Pt Temp ABG HCO3 ABG Total CO2 ABG O2 Saturation ABG Base Excess ABG Sodium VBG pH VBG pCO2 VBG pO2 VBG HCO3 VBG Total CO2 VBG O2 Saturation VBG Base Excess Hemoglobin Hematocrit Potassium 4.1 Glucose 88 Ionized Calcium FiO2 Sodium 136 Chloride 101 Carbon Dioxide 22 Anion Gap 17.1 H BUN 71 H D Creatinine 4.80 H GFR Calculation 16 BUN/Creatinine Ratio 14.00 POC Glucose 104 Calculated Osmolality 291.0 Lactic Acid Calcium 8.2 L Venous Ioniz Calcium Phosphorus 5.5 H Magnesium Total Bilirubin AST ALT Alkaline Phosphatase Total Creatine Kinase CK-MB (CK-2) CK and CKMB Interp Troponin I Total Protein Albumin 2.5 L Globulin Albumin/Globulin Ratio Urine Color Urine Appearance Urine pH Ur Specific [place] Urine Protein Urine Glucose (UA) Urine Ketones Urine Blood Urine Nitrate Urine Bilirubin Urine Urobilinogen Urine Leukocytes Urine WBC Ur Squamous Epith Cells Urine Bacteria Urine Sperm Ur Culture Indicated? Hepatitis A IgM Ab Hep Bs Antigen Hep B Core IgM Ab Hepatitis C Antibody Blood Type Antibody Screen Crossmatch Blood Bank Comment 03/13/16 03/13/16 03/13/16 04:15 04:15 04:15 WBC RBC Hgb Hct MCV MCH MCHC RDW Plt Count MPV Neut % (Auto) Lymph % (Auto) [place] % (Auto) Eos % (Auto) Baso % (Auto) Neut # (Auto) Lymph # (Auto) [place] # (Auto) Eos # (Auto) Baso # (Auto) Total Counted Immature Gran % Nucleated RBC % Immature Gran # Segmented Neutrophils Band Neutrophils Lymphocytes Monocytes Nucleated RBCs # Platelet Estimate Polychromasia Hypochromasia Microcytosis Ovalocytes INR PT Patient/Control Mix Circ Anticoag PTT Patient Temperature ABG pH 7.368 ABG pH at Pt Temp ABG pCO2 38.5 ABG pCO2 at Pt Temp ABG pO2 93.0 ABG pO2 at Pt Temp ABG HCO3 22.1 ABG Total CO2 20.5 L ABG O2 Saturation 97.4 ABG Base Excess -2.8 L ABG Sodium VBG pH VBG pCO2 VBG pO2 VBG HCO3 VBG Total CO2 VBG O2 Saturation VBG Base Excess Hemoglobin 8.9 L Hematocrit 27.6 L Potassium 4.1 3.9 Glucose 88 94 Ionized Calcium FiO2 Sodium 136 Chloride 100 Carbon Dioxide 23 Anion Gap 17.1 H BUN 70 H Creatinine 4.70 H GFR Calculation 17 BUN/Creatinine Ratio 14.00 POC Glucose Calculated Osmolality 291.0 Lactic Acid Calcium 8.2 L Venous Ioniz Calcium Phosphorus Magnesium 2.5 H Total Bilirubin 0.60 AST 40 H ALT 41 Alkaline Phosphatase 76 Total Creatine Kinase 335 H D CK-MB (CK-2) 4.2 H CK and CKMB Interp Troponin I 8.920 H Total Protein 5.4 L Albumin 2.5 L Globulin 2.9 Albumin/Globulin Ratio 0.8 L Urine Color Urine Appearance Urine pH Ur Specific [place] Urine Protein Urine Glucose (UA) Urine Ketones Urine Blood Urine Nitrate Urine Bilirubin Urine Urobilinogen Urine Leukocytes Urine WBC Ur Squamous Epith Cells Urine Bacteria Urine Sperm Ur Culture Indicated? Hepatitis A IgM Ab Hep Bs Antigen Hep B Core IgM Ab Hepatitis C Antibody Blood Type Antibody Screen Crossmatch Blood Bank Comment 03/13/16 03/13/16 03/13/16 04:16 05:03 06:06 WBC RBC Hgb Hct MCV MCH MCHC RDW Plt Count MPV Neut % (Auto) Lymph % (Auto) [place] % (Auto) Eos % (Auto) Baso % (Auto) Neut # (Auto) Lymph # (Auto) [place] # (Auto) Eos # (Auto) Baso # (Auto) Total Counted Immature Gran % Nucleated RBC % Immature Gran # Segmented Neutrophils Band Neutrophils Lymphocytes Monocytes Nucleated RBCs # Platelet Estimate Polychromasia Hypochromasia Microcytosis Ovalocytes INR PT Patient/Control Mix Circ Anticoag PTT Patient Temperature ABG pH ABG pH at Pt Temp ABG pCO2 ABG pCO2 at Pt Temp ABG pO2 ABG pO2 at Pt Temp ABG HCO3 ABG Total CO2 ABG O2 Saturation ABG Base Excess ABG Sodium VBG pH VBG pCO2 VBG pO2 VBG HCO3 VBG Total CO2 VBG O2 Saturation VBG Base Excess Hemoglobin Hematocrit Potassium Glucose Ionized Calcium FiO2 Sodium Chloride Carbon Dioxide Anion Gap BUN Creatinine GFR Calculation BUN/Creatinine Ratio POC Glucose 94 101 105 Calculated Osmolality Lactic Acid Calcium Venous Ioniz Calcium Phosphorus Magnesium Total Bilirubin AST ALT Alkaline Phosphatase Total Creatine Kinase CK-MB (CK-2) CK and CKMB Interp Troponin I Total Protein Albumin Globulin Albumin/Globulin Ratio Urine Color Urine Appearance Urine pH Ur Specific [place] Urine Protein Urine Glucose (UA) Urine Ketones Urine Blood Urine Nitrate Urine Bilirubin Urine Urobilinogen Urine Leukocytes Urine WBC Ur Squamous Epith Cells Urine Bacteria Urine Sperm Ur Culture Indicated? Hepatitis A IgM Ab Hep Bs Antigen Hep B Core IgM Ab Hepatitis C Antibody Blood Type Antibody Screen Crossmatch Blood Bank Comment Quality Measures - VTE Contraindication to Pharmacological VTE Prophylaxis: Active Bleeding Specialty Discharge - Follow Up or Referrals
--- NOTE | 2016-03-13 08:53 | Nephrology Progress Note ---
Nephrology - PN: Subj Interval history: Patient is without complaints this morning. He is extubated and coherent and interacting appropriately. Physical exam general patient's chronically ill-appearing, heart is regular rate and rhythm, he has trace pretibial edema, lungs are clear to auscultation anteriorly, abdomen is soft with positive bowel sounds Assessment/plan 1. Acute renal failure-this patient's urine output is been minimal the past several hours, we'll plan on hemodialysis today for 4 hours with about 2 L of fluid removal as tolerated. We will support his blood pressure with albumin as needed. Of note his intake noted in the computer from yesterday is probably short by about 2-3 L. 2. Coronary artery disease status post CABG 3. Diabetes mellitus continue present hypoglycemic therapy 4. Anemia-patient's hematocrit is 26% today Exam (PN)-Nephrology - Vital Signs Vital signs: Period Temp Pulse Resp BP Sys/Cruz Pulse Ox Last 24 Hr 97.0 F-97.9 F 59-68 8-20 79-150/49-88 98-100 - Lab 03/13/16 04:15 03/13/16 04:15 Most recent lab results ABG pH 7.368 (7.35-7.45) 03/13/16 04:15 ABG pCO2 38.5 MM HG (35-48) 03/13/16 04:15 ABG pO2 93.0 MM HG (80-95) 03/13/16 04:15 ABG HCO3 22.1 MMOL/L (20-26) 03/13/16 04:15 ABG O2 Saturation 97.4 % (95-100) 03/13/16 04:15 Calcium 8.2 MG/DL (8.5-10.1) L 03/13/16 04:15 Phosphorus 5.5 MG/DL (2.5-4.9) H 03/13/16 04:15 Magnesium 2.5 MG/DL (1.8-2.4) H 03/13/16 04:15 Assessment and Plan (1) Renal failure Status: Acute Assessment and plan: This patient was admitted with a elevated creatinine of 2.1 mg/dL, his baseline is not known. He was making some urine up until the past 3-4 hours. He is presently getting 40 mg of Lasix IV twice a day without response. I suspect this patient has a acute kidney injury related to his myocardial infarction as well as contrast administration. He may also have some underlying chronic kidney disease related to diabetes and hypertension. At this point if he continues without response to the diuretics I will discontinue these. I would also stopped the MIRACLE inhibitor that is been started. Current Visit: Yes (2) Coronary artery disease Status: Chronic Assessment and plan: Patient was admitted with an KS, he is undergone coronary angioplasty, he is being considered for open heart surgery later this week. Current Visit: Yes (3) Diabetes Status: Acute Current Visit: Yes (4) Hypertension Status: Chronic Current Visit: Yes (5) Non-STEMI (non-ST elevated myocardial infarction) Status: Acute Current Visit: Yes (6) Status post percutaneous transluminal coronary angioplasty Status: Resolved Current Visit: Yes Specialty Discharge - Follow Up or Referrals
[2016-03-13] MEDS ORDERED: ALBUMIN 25% 25 GM in PREMIX 1 EACH IV PRN (08:55)
[2016-03-13] MEDS ORDERED: ASPIRIN 325 MG TABLET PO SCH (09:00)
[2016-03-13] MEDS ORDERED: SIMVASTATIN 40 MG TABLET PO SCH (09:00)
--- NOTE | 2016-03-13 09:09 | Hospitalist Progress Note ---
Assessment and Plan (1) CAD (coronary artery disease) Status: Chronic Assessment and plan: 1)CAD for CABG yesterday 2)DM- 146-215. On SSI 3)acute renal failure- dialysis on MWF. 4)leukocytosis- resolved. On antibiotics for pneumonia. 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 His accuchecks are within normal limits this am. He is now on q4h accuchecks with low intensity SSI. Dialysis per Dr Acosta. Exam - Constitutional Vitals: Period Temp Pulse Resp BP Sys/Cruz Pulse Ox Last 24 Hr 97.0 F-97.9 F 59-68 8-20 79-150/49-88 98-100 General appearance: normal weight, no acute distress - Cardiovascular Cardiovascular exam: Present: regular rate and rhythm - GI/Abdominal GI/Abdominal exam: Present: normal bowel sounds, soft - Extremities Exam Extremities exam: Absent: edema - Neurological Exam Neurological exam: Present: alert, oriented X3 Results - Labs CBC & BMP: 03/13/16 04:15 03/13/16 04:15 Lab Results: I have reviewed the past 24 hour labs Quality Measures - VTE Contraindication to Pharmacological VTE Prophylaxis: Active Bleeding Specialty Discharge - Follow Up or Referrals
--- NOTE | 2016-03-13 10:50 | Cardiology Progress Note ---
Bertrand Morales Rachel, RN, am scribing for, and in the presence of, Rena Maria MD 10:49. Assessment and Plan (1) Status post coronary artery bypass graft Status: Acute Assessment and plan: Patient is post op day # 1. Patient is doing well and is without complaints. Continue current treatment. Current Visit: Yes (2) CKD stage 3 secondary to diabetes Status: Acute Assessment and plan: Creatinine is better today, patient is for dialysis today. Nephrology to manage. Current Visit: Yes (3) Ischemic cardiomyopathy Status: Acute Assessment and plan: EF of 20-25%. He is post op day one from CABG. He is currently on beta andrea and tolerating well. Unable to start MIRACLE inhibitor or ARB at this time due to renal function. Will continue current treatment at this time. He does not appear to be volume overloaded on exam. Current Visit: Yes (4) Leukocytosis Status: Acute Assessment and plan: Expected finding after surgery. Continue current therapy. Current Visit: Yes (5) CAD (coronary artery disease) Status: Chronic Assessment and plan: Patient was revascularized via CABG. Current Visit: Yes Qualifiers: Coronary Disease-Associated Artery/Lesion type: [place] artery (6) Dyslipidemia Status: Chronic Assessment and plan: Continue current therapy. Current Visit: Yes Cardiology - PN: Subj Interval history: Pt was admitted with [place] and found to have triple vessel disease. Post-cath course complicated by acute on chronic renal failure. He underwent POBA to RCA during [facility]. He is now s/p CABG yesterday with ARAUJO to LAD. Patient is doing well post op. He was extubated yesterday and is in no acute distress. He was also dialyzed yesterday, with plans to dialyze again today (creatinine better today at 4.7). He complains of chest soreness but is otherwise without complaints. His chest tubes are intact. He is in sinus rhythm without ectopy and arrhythmias. Vital signs are stable. Patient is on beta andrea and lipid lowering agent and tolerating well. Will continue to follow. Review of labs demonstrate H&H of 26.1 and 8.8, patient has been transfused throughout the night. Troponin is noted to 8.9, this is an expected finding. EKG is unremarkable. Exam (Progress Note) - Constitutional Vitals: Period Temp Pulse Resp BP Sys/Cruz Pulse Ox Last 24 Hr 97.0 F-97.9 F 59-68 8-20 79-150/49-88 98-100 General appearance: normal weight, no acute distress - Head Head exam: Present: normal inspection, normocephalic, atraumatic - Eye Eye exam: Present: EOMI. Absent: periorbital swelling, scleral icterus, laceration to eyelids Pupils: Present: EWA. Absent: dilated, fixed, irregular, unequal - ENT ENT exam: Present: normal exam, normal external ear exam - Neck Neck exam: Present: normal inspection. Absent: lymphadenopathy, meningismus, tenderness - Respiratory Respiratory exam: Present: clear to auscultation bilaterally, chest wall tenderness, other (chest tubes intact ). Absent: accessory muscle use, rales, rhonchi, stridor - Cardiovascular Cardiovascular exam: Present: regular rate and rhythm. Absent: gallop, irregular rhythm, systolic murmur - GI/Abdominal GI/Abdominal exam: Present: hypoactive bowel sounds. Absent: mass - Extremities Exam Extremities exam: Present: normal inspection. Absent: edema - Neurological Exam Neurological exam: Present: alert, oriented X3 - Psychiatric Psychiatric exam: Present: normal affect, normal mood - Skin Skin exam: Present: normal color, warm, dry, other (dressing to chest is dry and intact ) - Other Additional findings: Median sternotomy is bandaged. 3 chest tubes are in place. Result/EKG - Labs CBC & BMP: 03/13/16 04:15 03/13/16 04:15 Lab Results: I have reviewed the past 24 hour labs Labs: Laboratory Results - last 24 hr 03/07/16 03/11/16 03/12/16 05:47 22:23 04:39 WBC RBC Hgb Hct MCV MCH MCHC RDW Plt Count MPV Neut % (Auto) Lymph % (Auto) [place] % (Auto) Eos % (Auto) Baso % (Auto) Neut # (Auto) Lymph # (Auto) [place] # (Auto) Eos # (Auto) Baso # (Auto) Total Counted Immature Gran % Nucleated RBC % Immature Gran # Segmented Neutrophils Band Neutrophils Lymphocytes Monocytes Nucleated RBCs # Platelet Estimate Polychromasia Hypochromasia Microcytosis Ovalocytes INR PT Patient/Control Mix Circ Anticoag PTT Patient Temperature ABG pH ABG pH at Pt Temp ABG pCO2 ABG pCO2 at Pt Temp ABG pO2 ABG pO2 at Pt Temp ABG HCO3 ABG Total CO2 ABG O2 Saturation ABG Base Excess ABG Sodium VBG pH VBG pCO2 VBG pO2 VBG HCO3 VBG Total CO2 VBG O2 Saturation VBG Base Excess Hemoglobin Hematocrit Potassium Glucose Ionized Calcium FiO2 Sodium Chloride Carbon Dioxide Anion Gap BUN Creatinine GFR Calculation BUN/Creatinine Ratio POC Glucose 155 H Calculated Osmolality Lactic Acid Calcium Venous Ioniz Calcium Phosphorus Magnesium Total Bilirubin AST ALT Alkaline Phosphatase Total Creatine Kinase CK-MB (CK-2) CK and CKMB Interp Troponin I Total Protein Albumin Globulin Albumin/Globulin Ratio Urine Color Urine Appearance Urine pH Ur Specific [place] Urine Protein Urine Glucose (UA) Urine Ketones Urine Blood Urine Nitrate Urine Bilirubin Urine Urobilinogen Urine Leukocytes Urine WBC Ur Squamous Epith Cells Urine Bacteria Urine Sperm Ur Culture Indicated? Hepatitis A IgM Ab Hep Bs Antigen Hep B Core IgM Ab Hepatitis C Antibody Blood Type O POSITIVE O POSITIVE Antibody Screen Negative Negative Crossmatch See Detail See Detail Blood Bank Comment 03/12/16 03/12/16 03/12/16 05:00 07:15 07:47 WBC RBC Hgb Hct MCV MCH MCHC RDW Plt Count 256 MPV Neut % (Auto) Lymph % (Auto) [place] % (Auto) Eos % (Auto) Baso % (Auto) Neut # (Auto) Lymph # (Auto) [place] # (Auto) Eos # (Auto) Baso # (Auto) Total Counted Immature Gran % Nucleated RBC % Immature Gran # Segmented Neutrophils Band Neutrophils Lymphocytes Monocytes Nucleated RBCs # Platelet Estimate Polychromasia Hypochromasia Microcytosis Ovalocytes INR PT Patient/Control Mix Circ Anticoag PTT Patient Temperature ABG pH ABG pH at Pt Temp ABG pCO2 ABG pCO2 at Pt Temp ABG pO2 ABG pO2 at Pt Temp ABG HCO3 ABG Total CO2 ABG O2 Saturation ABG Base Excess ABG Sodium VBG pH VBG pCO2 VBG pO2 VBG HCO3 VBG Total CO2 VBG O2 Saturation VBG Base Excess Hemoglobin Hematocrit Potassium Glucose Ionized Calcium FiO2 Sodium Chloride Carbon Dioxide Anion Gap BUN Creatinine GFR Calculation BUN/Creatinine Ratio POC Glucose Calculated Osmolality Lactic Acid Calcium Venous Ioniz Calcium Phosphorus Magnesium Total Bilirubin AST ALT Alkaline Phosphatase Total Creatine Kinase CK-MB (CK-2) CK and CKMB Interp Troponin I Total Protein Albumin Globulin Albumin/Globulin Ratio Urine Color Yellow Urine Appearance Cloudy Urine pH 5.0 Ur Specific [place] 1.017 Urine Protein Negative Urine Glucose (UA) Negative Urine Ketones Negative Urine Blood Negative Urine Nitrate Negative Urine Bilirubin Negative Urine Urobilinogen < 2.0 H Urine Leukocytes Trace Urine WBC 3 Ur Squamous Epith Cells Occasional Urine Bacteria Occasional Urine Sperm Few Ur Culture Indicated? Not indicated Hepatitis A IgM Ab Negative Hep Bs Antigen Negative Hep B Core IgM Ab Negative Hepatitis C Antibody Negative Blood Type Antibody Screen Crossmatch Blood Bank Comment 03/12/16 03/12/16 03/12/16 07:47 09:20 09:55 WBC RBC Hgb Hct MCV MCH MCHC RDW Plt Count 170 D MPV Neut % (Auto) Lymph % (Auto) [place] % (Auto) Eos % (Auto) Baso % (Auto) Neut # (Auto) Lymph # (Auto) [place] # (Auto) Eos # (Auto) Baso # (Auto) Total Counted Immature Gran % Nucleated RBC % Immature Gran # Segmented Neutrophils Band Neutrophils Lymphocytes Monocytes Nucleated RBCs # Platelet Estimate Polychromasia Hypochromasia Microcytosis Ovalocytes INR PT Patient/Control Mix Circ Anticoag PTT Patient Temperature 37 35 ABG pH 7.475 H ABG pH at Pt Temp 7.475 7.476 ABG pCO2 30.3 L ABG pCO2 at Pt Temp 30.3 33.9 ABG pO2 462.0 H ABG pO2 at Pt Temp 462.0 39.6 ABG HCO3 23.9 ABG Total CO2 20.4 L ABG O2 Saturation 100.0 ABG Base Excess -0.7 ABG Sodium 127 L 125 L VBG pH 7.446 VBG pCO2 37.3 L VBG pO2 45.5 H VBG HCO3 25.7 VBG Total CO2 23.8 VBG O2 Saturation 80.9 VBG Base Excess 1.8 Hemoglobin 9.2 L 8.8 L Hematocrit 28.4 L 27.4 L Potassium 3.3 L 4.0 Glucose 147 H 327 H Ionized Calcium 1.06 L FiO2 80.00 Sodium Chloride Carbon Dioxide Anion Gap BUN Creatinine GFR Calculation BUN/Creatinine Ratio POC Glucose Calculated Osmolality Lactic Acid Calcium Venous Ioniz Calcium 0.87 L Phosphorus Magnesium Total Bilirubin AST ALT Alkaline Phosphatase Total Creatine Kinase CK-MB (CK-2) CK and CKMB Interp Troponin I Total Protein Albumin Globulin Albumin/Globulin Ratio Urine Color Urine Appearance Urine pH Ur Specific [place] Urine Protein Urine Glucose (UA) Urine Ketones Urine Blood Urine Nitrate Urine Bilirubin Urine Urobilinogen Urine Leukocytes Urine WBC Ur Squamous Epith Cells Urine Bacteria Urine Sperm Ur Culture Indicated? Hepatitis A IgM Ab Hep Bs Antigen Hep B Core IgM Ab Hepatitis C Antibody Blood Type Antibody Screen Crossmatch Blood Bank Comment 03/12/16 03/12/16 03/12/16 09:55 11:40 11:40 WBC 16.2 H D RBC 3.13 L Hgb 8.3 L Hct 24.7 L MCV 78.9 L MCH 27 MCHC 33.6 RDW 14.4 Plt Count 244 D MPV 9.9 Neut % (Auto) 81.8 H Lymph % (Auto) 7.4 L [place] % (Auto) 6.6 Eos % (Auto) 1.1 Baso % (Auto) 0.1 Neut # (Auto) 13.2 H Lymph # (Auto) 1.2 L [place] # (Auto) 1.1 H Eos # (Auto) 0.2 Baso # (Auto) 0.0 Total Counted Immature Gran % 3.0 Nucleated RBC % 0.0 Immature Gran # 0.49 Segmented Neutrophils Band Neutrophils Lymphocytes Monocytes Nucleated RBCs # 0.00 Platelet Estimate Polychromasia Hypochromasia Microcytosis Ovalocytes INR 1.4 PT Patient/Control Mix 15.6 D Circ Anticoag PTT 34.3 Patient Temperature 37 ABG pH 7.490 H ABG pH at Pt Temp 7.490 ABG pCO2 29.4 L ABG pCO2 at Pt Temp 29.4 ABG pO2 273.0 H ABG pO2 at Pt Temp 273.0 ABG HCO3 24.1 ABG Total CO2 20.7 L ABG O2 Saturation 100.0 ABG Base Excess -0.4 ABG Sodium 124 L VBG pH VBG pCO2 VBG pO2 VBG HCO3 VBG Total CO2 VBG O2 Saturation VBG Base Excess Hemoglobin 8.3 L Hematocrit 25.9 L Potassium 3.4 L Glucose 252 H Ionized Calcium 1.10 L FiO2 Sodium Chloride Carbon Dioxide Anion Gap BUN Creatinine GFR Calculation BUN/Creatinine Ratio POC Glucose Calculated Osmolality Lactic Acid Calcium Venous Ioniz Calcium Phosphorus Magnesium Total Bilirubin AST ALT Alkaline Phosphatase Total Creatine Kinase CK-MB (CK-2) CK and CKMB Interp Troponin I Total Protein Albumin Globulin Albumin/Globulin Ratio Urine Color Urine Appearance Urine pH Ur Specific [place] Urine Protein Urine Glucose (UA) Urine Ketones Urine Blood Urine Nitrate Urine Bilirubin Urine Urobilinogen Urine Leukocytes Urine WBC Ur Squamous Epith Cells Urine Bacteria Urine Sperm Ur Culture Indicated? Hepatitis A IgM Ab Hep Bs Antigen Hep B Core IgM Ab Hepatitis C Antibody Blood Type Antibody Screen Crossmatch Blood Bank Comment 03/12/16 03/12/16 03/12/16 11:40 11:40 12:00 WBC RBC Hgb Hct MCV MCH MCHC RDW Plt Count MPV Neut % (Auto) Lymph % (Auto) [place] % (Auto) Eos % (Auto) Baso % (Auto) Neut # (Auto) Lymph # (Auto) [place] # (Auto) Eos # (Auto) Baso # (Auto) Total Counted Immature Gran % Nucleated RBC % Immature Gran # Segmented Neutrophils Band Neutrophils Lymphocytes Monocytes Nucleated RBCs # Platelet Estimate Polychromasia Hypochromasia Microcytosis Ovalocytes INR PT Patient/Control Mix Circ Anticoag PTT Patient Temperature 37 ABG pH ABG pH at Pt Temp 7.401 ABG pCO2 ABG pCO2 at Pt Temp 37.7 ABG pO2 ABG pO2 at Pt Temp 29.9 ABG HCO3 ABG Total CO2 ABG O2 Saturation ABG Base Excess ABG Sodium 128 L VBG pH 7.401 VBG pCO2 37.7 L VBG pO2 29.9 VBG HCO3 22.8 L VBG Total CO2 22.0 VBG O2 Saturation 50.3 VBG Base Excess -1.1 L Hemoglobin 8.3 L Hematocrit 25.8 L Potassium 3.9 3.6 Glucose 232 H 244 H Ionized Calcium FiO2 21.00 Sodium 133 L Chloride 94 L Carbon Dioxide 21 Anion Gap 21.9 H BUN 89 H Creatinine 4.80 H GFR Calculation 16 BUN/Creatinine Ratio 18.00 POC Glucose Calculated Osmolality 299.4 Lactic Acid Calcium 8.8 Venous Ioniz Calcium 1.13 L Phosphorus Magnesium 2.6 H Total Bilirubin 0.70 AST 50 H ALT 45 Alkaline Phosphatase 96 Total Creatine Kinase 224 CK-MB (CK-2) 6.4 H CK and CKMB Interp 2.9 Troponin I 11.500 H Total Protein 5.0 L Albumin 2.2 L Globulin 2.8 Albumin/Globulin Ratio 0.7 L Urine Color Urine Appearance Urine pH Ur Specific [place] Urine Protein Urine Glucose (UA) Urine Ketones Urine Blood Urine Nitrate Urine Bilirubin Urine Urobilinogen Urine Leukocytes Urine WBC Ur Squamous Epith Cells Urine Bacteria Urine Sperm Ur Culture Indicated? Hepatitis A IgM Ab Hep Bs Antigen Hep B Core IgM Ab Hepatitis C Antibody Blood Type Antibody Screen Crossmatch Blood Bank Comment 03/12/16 03/12/16 03/12/16 12:05 12:33 13:18 WBC RBC Hgb Hct MCV MCH MCHC RDW Plt Count MPV Neut % (Auto) Lymph % (Auto) [place] % (Auto) Eos % (Auto) Baso % (Auto) Neut # (Auto) Lymph # (Auto) [place] # (Auto) Eos # (Auto) Baso # (Auto) Total Counted Immature Gran % Nucleated RBC % Immature Gran # Segmented Neutrophils Band Neutrophils Lymphocytes Monocytes Nucleated RBCs # Platelet Estimate Polychromasia Hypochromasia Microcytosis Ovalocytes INR PT Patient/Control Mix Circ Anticoag PTT Patient Temperature ABG pH 7.476 H ABG pH at Pt Temp ABG pCO2 27.6 L ABG pCO2 at Pt Temp ABG pO2 386.0 H ABG pO2 at Pt Temp ABG HCO3 22.3 ABG Total CO2 19.1 L ABG O2 Saturation 100.0 ABG Base Excess -2.5 ABG Sodium VBG pH VBG pCO2 VBG pO2 VBG HCO3 VBG Total CO2 VBG O2 Saturation VBG Base Excess Hemoglobin 7.5 L Hematocrit 23.3 L Potassium 3.4 L Glucose 248 H Ionized Calcium FiO2 Sodium Chloride Carbon Dioxide Anion Gap BUN Creatinine GFR Calculation BUN/Creatinine Ratio POC Glucose 260 H Calculated Osmolality Lactic Acid 1.4 Calcium Venous Ioniz Calcium Phosphorus Magnesium Total Bilirubin AST ALT Alkaline Phosphatase Total Creatine Kinase CK-MB (CK-2) CK and CKMB Interp Troponin I Total Protein Albumin Globulin Albumin/Globulin Ratio Urine Color Urine Appearance Urine pH Ur Specific [place] Urine Protein Urine Glucose (UA) Urine Ketones Urine Blood Urine Nitrate Urine Bilirubin Urine Urobilinogen Urine Leukocytes Urine WBC Ur Squamous Epith Cells Urine Bacteria Urine Sperm Ur Culture Indicated? Hepatitis A IgM Ab Hep Bs Antigen Hep B Core IgM Ab Hepatitis C Antibody Blood Type Antibody Screen Crossmatch Blood Bank Comment 03/12/16 03/12/16 03/12/16 13:37 14:41 14:53 WBC RBC Hgb Hct MCV MCH MCHC RDW Plt Count MPV Neut % (Auto) Lymph % (Auto) [place] % (Auto) Eos % (Auto) Baso % (Auto) Neut # (Auto) Lymph # (Auto) [place] # (Auto) Eos # (Auto) Baso # (Auto) Total Counted Immature Gran % Nucleated RBC % Immature Gran # Segmented Neutrophils Band Neutrophils Lymphocytes Monocytes Nucleated RBCs # Platelet Estimate Polychromasia Hypochromasia Microcytosis Ovalocytes INR PT Patient/Control Mix Circ Anticoag PTT Patient Temperature ABG pH 7.412 7.378 ABG pH at Pt Temp ABG pCO2 31.2 L 36.1 ABG pCO2 at Pt Temp ABG pO2 216.0 H 128.0 H ABG pO2 at Pt Temp ABG HCO3 21.0 21.5 ABG Total CO2 18.7 L 19.8 L ABG O2 Saturation 99.7 98.9 ABG Base Excess -4.1 L -3.4 L ABG Sodium VBG pH VBG pCO2 VBG pO2 VBG HCO3 VBG Total CO2 VBG O2 Saturation VBG Base Excess Hemoglobin 7.5 L 8.2 L Hematocrit 23.4 L 25.4 L Potassium 3.1 L 3.5 Glucose 253 H 242 H Ionized Calcium FiO2 Sodium Chloride Carbon Dioxide Anion Gap BUN Creatinine GFR Calculation BUN/Creatinine Ratio POC Glucose Calculated Osmolality Lactic Acid Calcium Venous Ioniz Calcium Phosphorus Magnesium Total Bilirubin AST ALT Alkaline Phosphatase Total Creatine Kinase CK-MB (CK-2) CK and CKMB Interp Troponin I Total Protein Albumin Globulin Albumin/Globulin Ratio Urine Color Urine Appearance Urine pH Ur Specific [place] Urine Protein Urine Glucose (UA) Urine Ketones Urine Blood Urine Nitrate Urine Bilirubin Urine Urobilinogen Urine Leukocytes Urine WBC Ur Squamous Epith Cells Urine Bacteria Urine Sperm Ur Culture Indicated? Hepatitis A IgM Ab Hep Bs Antigen Hep B Core IgM Ab Hepatitis C Antibody Blood Type Cancelled Antibody Screen Cancelled Crossmatch See Detail Blood Bank Comment Cancelled 03/12/16 03/12/16 03/12/16 16:53 17:00 17:48 WBC RBC Hgb Hct MCV MCH MCHC RDW Plt Count MPV Neut % (Auto) Lymph % (Auto) [place] % (Auto) Eos % (Auto) Baso % (Auto) Neut # (Auto) Lymph # (Auto) [place] # (Auto) Eos # (Auto) Baso # (Auto) Total Counted Immature Gran % Nucleated RBC % Immature Gran # Segmented Neutrophils Band Neutrophils Lymphocytes Monocytes Nucleated RBCs # Platelet Estimate Polychromasia Hypochromasia Microcytosis Ovalocytes INR PT Patient/Control Mix Circ Anticoag PTT Patient Temperature ABG pH 7.448 ABG pH at Pt Temp ABG pCO2 33.2 L ABG pCO2 at Pt Temp ABG pO2 130.8 H ABG pO2 at Pt Temp ABG HCO3 22.5 ABG Total CO2 23.5 ABG O2 Saturation 98.2 ABG Base Excess -1.3 ABG Sodium VBG pH VBG pCO2 VBG pO2 VBG HCO3 VBG Total CO2 VBG O2 Saturation VBG Base Excess Hemoglobin 7.8 L Hematocrit 23.0 L Potassium 3.4 L Glucose 181 H Ionized Calcium FiO2 Sodium Chloride Carbon Dioxide Anion Gap BUN Creatinine GFR Calculation BUN/Creatinine Ratio POC Glucose 193 H Calculated Osmolality Lactic Acid 1.5 Calcium Venous Ioniz Calcium Phosphorus Magnesium Total Bilirubin AST ALT Alkaline Phosphatase Total Creatine Kinase CK-MB (CK-2) CK and CKMB Interp Troponin I Total Protein Albumin Globulin Albumin/Globulin Ratio Urine Color Urine Appearance Urine pH Ur Specific [place] Urine Protein Urine Glucose (UA) Urine Ketones Urine Blood Urine Nitrate Urine Bilirubin Urine Urobilinogen Urine Leukocytes Urine WBC Ur Squamous Epith Cells Urine Bacteria Urine Sperm Ur Culture Indicated? Hepatitis A IgM Ab Hep Bs Antigen Hep B Core IgM Ab Hepatitis C Antibody Blood Type Antibody Screen Crossmatch Blood Bank Comment 03/12/16 03/12/16 03/12/16 19:05 20:11 20:15 WBC RBC Hgb Hct MCV MCH MCHC RDW Plt Count MPV Neut % (Auto) Lymph % (Auto) [place] % (Auto) Eos % (Auto) Baso % (Auto) Neut # (Auto) Lymph # (Auto) [place] # (Auto) Eos # (Auto) Baso # (Auto) Total Counted Immature Gran % Nucleated RBC % Immature Gran # Segmented Neutrophils Band Neutrophils Lymphocytes Monocytes Nucleated RBCs # Platelet Estimate Polychromasia Hypochromasia Microcytosis Ovalocytes INR PT Patient/Control Mix Circ Anticoag PTT Patient Temperature ABG pH ABG pH at Pt Temp ABG pCO2 ABG pCO2 at Pt Temp ABG pO2 ABG pO2 at Pt Temp ABG HCO3 ABG Total CO2 ABG O2 Saturation ABG Base Excess ABG Sodium VBG pH VBG pCO2 VBG pO2 VBG HCO3 VBG Total CO2 VBG O2 Saturation VBG Base Excess Hemoglobin Hematocrit Potassium Glucose Ionized Calcium FiO2 Sodium Chloride Carbon Dioxide Anion Gap BUN Creatinine GFR Calculation BUN/Creatinine Ratio POC Glucose 195 H 121 H Calculated Osmolality Lactic Acid Calcium Venous Ioniz Calcium Phosphorus Magnesium Total Bilirubin AST ALT Alkaline Phosphatase Total Creatine Kinase 467 H D CK-MB (CK-2) 5.7 H CK and CKMB Interp 1.2 Troponin I 10.100 H Total Protein Albumin Globulin Albumin/Globulin Ratio Urine Color Urine Appearance Urine pH Ur Specific [place] Urine Protein Urine Glucose (UA) Urine Ketones Urine Blood Urine Nitrate Urine Bilirubin Urine Urobilinogen Urine Leukocytes Urine WBC Ur Squamous Epith Cells Urine Bacteria Urine Sperm Ur Culture Indicated? Hepatitis A IgM Ab Hep Bs Antigen Hep B Core IgM Ab Hepatitis C Antibody Blood Type Antibody Screen Crossmatch Blood Bank Comment 03/12/16 03/12/16 03/12/16 21:24 22:11 23:05 WBC RBC Hgb Hct MCV MCH MCHC RDW Plt Count MPV Neut % (Auto) Lymph % (Auto) [place] % (Auto) Eos % (Auto) Baso % (Auto) Neut # (Auto) Lymph # (Auto) [place] # (Auto) Eos # (Auto) Baso # (Auto) Total Counted Immature Gran % Nucleated RBC % Immature Gran # Segmented Neutrophils Band Neutrophils Lymphocytes Monocytes Nucleated RBCs # Platelet Estimate Polychromasia Hypochromasia Microcytosis Ovalocytes INR PT Patient/Control Mix Circ Anticoag PTT Patient Temperature ABG pH ABG pH at Pt Temp ABG pCO2 ABG pCO2 at Pt Temp ABG pO2 ABG pO2 at Pt Temp ABG HCO3 ABG Total CO2 ABG O2 Saturation ABG Base Excess ABG Sodium VBG pH VBG pCO2 VBG pO2 VBG HCO3 VBG Total CO2 VBG O2 Saturation VBG Base Excess Hemoglobin Hematocrit Potassium Glucose Ionized Calcium FiO2 Sodium Chloride Carbon Dioxide Anion Gap BUN Creatinine GFR Calculation BUN/Creatinine Ratio POC Glucose 111 H 107 H 117 H Calculated Osmolality Lactic Acid Calcium Venous Ioniz Calcium Phosphorus Magnesium Total Bilirubin AST ALT Alkaline Phosphatase Total Creatine Kinase CK-MB (CK-2) CK and CKMB Interp Troponin I Total Protein Albumin Globulin Albumin/Globulin Ratio Urine Color Urine Appearance Urine pH Ur Specific [place] Urine Protein Urine Glucose (UA) Urine Ketones Urine Blood Urine Nitrate Urine Bilirubin Urine Urobilinogen Urine Leukocytes Urine WBC Ur Squamous Epith Cells Urine Bacteria Urine Sperm Ur Culture Indicated? Hepatitis A IgM Ab Hep Bs Antigen Hep B Core IgM Ab Hepatitis C Antibody Blood Type Antibody Screen Crossmatch Blood Bank Comment 03/13/16 03/13/16 03/13/16 00:05 01:10 02:05 WBC RBC Hgb Hct MCV MCH MCHC RDW Plt Count MPV Neut % (Auto) Lymph % (Auto) [place] % (Auto) Eos % (Auto) Baso % (Auto) Neut # (Auto) Lymph # (Auto) [place] # (Auto) Eos # (Auto) Baso # (Auto) Total Counted Immature Gran % Nucleated RBC % Immature Gran # Segmented Neutrophils Band Neutrophils Lymphocytes Monocytes Nucleated RBCs # Platelet Estimate Polychromasia Hypochromasia Microcytosis Ovalocytes INR PT Patient/Control Mix Circ Anticoag PTT Patient Temperature ABG pH ABG pH at Pt Temp ABG pCO2 ABG pCO2 at Pt Temp ABG pO2 ABG pO2 at Pt Temp ABG HCO3 ABG Total CO2 ABG O2 Saturation ABG Base Excess ABG Sodium VBG pH VBG pCO2 VBG pO2 VBG HCO3 VBG Total CO2 VBG O2 Saturation VBG Base Excess Hemoglobin Hematocrit Potassium Glucose Ionized Calcium FiO2 Sodium Chloride Carbon Dioxide Anion Gap BUN Creatinine GFR Calculation BUN/Creatinine Ratio POC Glucose 94 103 112 H Calculated Osmolality Lactic Acid Calcium Venous Ioniz Calcium Phosphorus Magnesium Total Bilirubin AST ALT Alkaline Phosphatase Total Creatine Kinase CK-MB (CK-2) CK and CKMB Interp Troponin I Total Protein Albumin Globulin Albumin/Globulin Ratio Urine Color Urine Appearance Urine pH Ur Specific [place] Urine Protein Urine Glucose (UA) Urine Ketones Urine Blood Urine Nitrate Urine Bilirubin Urine Urobilinogen Urine Leukocytes Urine WBC Ur Squamous Epith Cells Urine Bacteria Urine Sperm Ur Culture Indicated? Hepatitis A IgM Ab Hep Bs Antigen Hep B Core IgM Ab Hepatitis C Antibody Blood Type Antibody Screen Crossmatch Blood Bank Comment 03/13/16 03/13/16 03/13/16 03:09 04:15 04:15 WBC 16.9 H RBC 3.14 L Hgb 8.8 L Hct 26.1 L MCV 83.1 L MCH 28 MCHC 33.7 RDW 15.2 Plt Count 252 MPV 10.4 Neut % (Auto) 87.9 H Lymph % (Auto) 4.6 L [place] % (Auto) 6.9 Eos % (Auto) 0.0 Baso % (Auto) 0.1 Neut # (Auto) 14.8 H Lymph # (Auto) 0.8 L [place] # (Auto) 1.2 H Eos # (Auto) 0.0 Baso # (Auto) 0.0 Total Counted 100 Immature Gran % 0.5 Nucleated RBC % 0.0 Immature Gran # 0.08 Segmented Neutrophils 86 H Band Neutrophils 5 Lymphocytes 3 L Monocytes 6 Nucleated RBCs # 0.00 Platelet Estimate Adequate Polychromasia Slight Hypochromasia 1+ Microcytosis 1+ Ovalocytes Slight INR PT Patient/Control Mix Circ Anticoag PTT Patient Temperature ABG pH ABG pH at Pt Temp ABG pCO2 ABG pCO2 at Pt Temp ABG pO2 ABG pO2 at Pt Temp ABG HCO3 ABG Total CO2 ABG O2 Saturation ABG Base Excess ABG Sodium VBG pH VBG pCO2 VBG pO2 VBG HCO3 VBG Total CO2 VBG O2 Saturation VBG Base Excess Hemoglobin Hematocrit Potassium 4.1 Glucose 88 Ionized Calcium FiO2 Sodium 136 Chloride 101 Carbon Dioxide 22 Anion Gap 17.1 H BUN 71 H D Creatinine 4.80 H GFR Calculation 16 BUN/Creatinine Ratio 14.00 POC Glucose 104 Calculated Osmolality 291.0 Lactic Acid Calcium 8.2 L Venous Ioniz Calcium Phosphorus 5.5 H Magnesium Total Bilirubin AST ALT Alkaline Phosphatase Total Creatine Kinase CK-MB (CK-2) CK and CKMB Interp Troponin I Total Protein Albumin 2.5 L Globulin Albumin/Globulin Ratio Urine Color Urine Appearance Urine pH Ur Specific [place] Urine Protein Urine Glucose (UA) Urine Ketones Urine Blood Urine Nitrate Urine Bilirubin Urine Urobilinogen Urine Leukocytes Urine WBC Ur Squamous Epith Cells Urine Bacteria Urine Sperm Ur Culture Indicated? Hepatitis A IgM Ab Hep Bs Antigen Hep B Core IgM Ab Hepatitis C Antibody Blood Type Antibody Screen Crossmatch Blood Bank Comment 03/13/16 03/13/16 03/13/16 04:15 04:15 04:15 WBC RBC Hgb Hct MCV MCH MCHC RDW Plt Count MPV Neut % (Auto) Lymph % (Auto) Carlton % (Auto) Eos % (Auto) Baso % (Auto) Neut # (Auto) Lymph # (Auto) Carlton # (Auto) Eos # (Auto) Baso # (Auto) Total Counted Immature Gran % Nucleated RBC % Immature Gran # Segmented Neutrophils Band Neutrophils Lymphocytes Monocytes Nucleated RBCs # Platelet Estimate Polychromasia Hypochromasia Microcytosis Ovalocytes INR PT Patient/Control Mix Circ Anticoag PTT Patient Temperature ABG pH 7.368 ABG pH at Pt Temp ABG pCO2 38.5 ABG pCO2 at Pt Temp ABG pO2 93.0 ABG pO2 at Pt Temp ABG HCO3 22.1 ABG Total CO2 20.5 L ABG O2 Saturation 97.4 ABG Base Excess -2.8 L ABG Sodium VBG pH VBG pCO2 VBG pO2 VBG HCO3 VBG Total CO2 VBG O2 Saturation VBG Base Excess Hemoglobin 8.9 L Hematocrit 27.6 L Potassium 4.1 3.9 Glucose 88 94 Ionized Calcium FiO2 Sodium 136 Chloride 100 Carbon Dioxide 23 Anion Gap 17.1 H BUN 70 H Creatinine 4.70 H GFR Calculation 17 BUN/Creatinine Ratio 14.00 POC Glucose Calculated Osmolality 291.0 Lactic Acid Calcium 8.2 L Venous Ioniz Calcium Phosphorus Magnesium 2.5 H Total Bilirubin 0.60 AST 40 H ALT 41 Alkaline Phosphatase 76 Total Creatine Kinase 335 H D CK-MB (CK-2) 4.2 H CK and CKMB Interp Troponin I 8.920 H Total Protein 5.4 L Albumin 2.5 L Globulin 2.9 Albumin/Globulin Ratio 0.8 L Urine Color Urine Appearance Urine pH Ur Specific Kimmell Urine Protein Urine Glucose (UA) Urine Ketones Urine Blood Urine Nitrate Urine Bilirubin Urine Urobilinogen Urine Leukocytes Urine WBC Ur Squamous Epith Cells Urine Bacteria Urine Sperm Ur Culture Indicated? Hepatitis A IgM Ab Hep Bs Antigen Hep B Core IgM Ab Hepatitis C Antibody Blood Type Antibody Screen Crossmatch Blood Bank Comment 03/13/16 03/13/16 03/13/16 04:16 05:03 06:06 WBC RBC Hgb Hct MCV MCH MCHC RDW Plt Count MPV Neut % (Auto) Lymph % (Auto) Carlton % (Auto) Eos % (Auto) Baso % (Auto) Neut # (Auto) Lymph # (Auto) Carlton # (Auto) Eos # (Auto) Baso # (Auto) Total Counted Immature Gran % Nucleated RBC % Immature Gran # Segmented Neutrophils Band Neutrophils Lymphocytes Monocytes Nucleated RBCs # Platelet Estimate Polychromasia Hypochromasia Microcytosis Ovalocytes INR PT Patient/Control Mix Circ Anticoag PTT Patient Temperature ABG pH ABG pH at Pt Temp ABG pCO2 ABG pCO2 at Pt Temp ABG pO2 ABG pO2 at Pt Temp ABG HCO3 ABG Total CO2 ABG O2 Saturation ABG Base Excess ABG Sodium VBG pH VBG pCO2 VBG pO2 VBG HCO3 VBG Total CO2 VBG O2 Saturation VBG Base Excess Hemoglobin Hematocrit Potassium Glucose Ionized Calcium FiO2 Sodium Chloride Carbon Dioxide Anion Gap BUN Creatinine GFR Calculation BUN/Creatinine Ratio POC Glucose 94 101 105 Calculated Osmolality Lactic Acid Calcium Venous Ioniz Calcium Phosphorus Magnesium Total Bilirubin AST ALT Alkaline Phosphatase Total Creatine Kinase CK-MB (CK-2) CK and CKMB Interp Troponin I Total Protein Albumin Globulin Albumin/Globulin Ratio Urine Color Urine Appearance Urine pH Ur Specific Kimmell Urine Protein Urine Glucose (UA) Urine Ketones Urine Blood Urine Nitrate Urine Bilirubin Urine Urobilinogen Urine Leukocytes Urine WBC Ur Squamous Epith Cells Urine Bacteria Urine Sperm Ur Culture Indicated? Hepatitis A IgM Ab Hep Bs Antigen Hep B Core IgM Ab Hepatitis C Antibody Blood Type Antibody Screen Crossmatch Blood Bank Comment - EKG EKG results: sinus rhythm Quality Measures - VTE Contraindication to Pharmacological VTE Prophylaxis: Active Bleeding Specialty Discharge - Follow Up or Referrals ICrow Jennifer, MD, personally performed the services described in this documentation, ascribed by Sophie Thurston RN in my presence, and it is both accurate and complete 050 .
[2016-03-13] MEDS: INSULIN GLARGINE 100 UNIT/ML SUBCUT SCH (10:52)
[2016-03-13] MEDS: miSOPROStol 200 MCG TABLET PO SCH ×4 (11:00→21:05)
[2016-03-13] MEDS: BISACODYL 5 MG TABLET PO SCH (11:01)
[2016-03-13] MEDS: CARVEDILOL 3.125 MG TABLET PO SCH ×2 (11:04→21:07)
[2016-03-13] MEDS: DOCUSATE SODIUM 100 MG CAPSULE PO SCH ×2 (11:04→21:05)
[2016-03-13] MEDS: PANTOPRAZOLE 40 MG TABLET PO SCH (11:04)
[2016-03-13] MEDS: SODIUM BICARBONATE 650 MG TABLET PO SCH ×2 (11:05→21:05)
[2016-03-13] MEDS: INSULIN REGULAR 100 UNIT/ML SUBCUT SCH ×4 (13:38→21:28)
[2016-03-13] MEDS: ROSUVASTATIN 20 MG TABLET PO SCH (21:05)
[2016-03-13] MEDS: TAMSULOSIN 0.4 MG CAPSULE PO SCH (21:29)
[2016-03-14] MEDS ORDERED: EPINEPHrine 1 MG/ML VIAL ONE ×2 (01:28→01:43)
[2016-03-14] MEDS ORDERED: SODIUM BICARBONATE 50 MEQ/50 ML VIAL IV ONE (01:44)
[2016-03-14 01:54] LABS: Basophils % 0.1 % (0.0-0.8); Eosinophils % 0.1 % (0.00-10.9); Hematocrit 21.3 VOL% (42.0-52.0); Hemoglobin 6.9 GM/DL (14.0-18.0); Immature Granulocytes % 1.9 %; Immature Granulocytes Absolute 0.34 #; Lymphocytes # 3.4 10*3/uL (1.4-4.0); Lymphocytes % 19.1 % (21.2-54.2); Mean Corpuscular HGB Conc 32.4 GM/DL (32-36); Mean Corpuscular Hemoglobin 29 PG (27-34); Mean Platelet Volume 10.5 FL (9.6-12.0); Monocytes # 1.3 10*3/uL (0.11-0.8); Monocytes % 7.4 % (1.7-12.7); NRBC # 0.08 10*3/uL; Neutrophils # 12.7 10*3/uL (1.4-7.4); Neutrophils % 71.4 % (38.7-73.9); Platelet Count 179 10*3/uL (130-400); Red Blood Count 2.42 10*6/uL (3.8-5.5); Red Cell Distribution Width 15.6 % (9.3-17.3); White Blood Count 17.7 10*3/uL (4.5-13.71)
[2016-03-14 02:06] LABS: INR 1.4; Partial Thromboplastin Time 28.9 SECS (0-40)
[2016-03-14 02:18] LABS: Alanine Aminotransferase 35 U/L (16-61); Albumin 1.5 G/DL (3.4-5.0); Alkaline Phosphatase 48 U/L (45-117); Aspartate Amino Transferase 42 U/L (0-37); Bilirubin,Total < 0.39 MG/DL (0.2-1.0); Blood Urea Nitrogen 54 MG/DL (7-18); Calcium 9.6 MG/DL (8.5-10.1); Glucose 140 MG/DL (74-106); Magnesium 3.1 MG/DL (1.8-2.4); Osmolality,Calculated 308.4 MOS/KG (273-304); Phosphorous 7.9 MG/DL (2.5-4.9); Potassium 4.2 MMOL/L (3.5-5.1); Sodium 147 MMOL/L (136-145); Total Protein 3.8 G/DL (6.4-8.3)
[2016-03-14 02:19] LABS: Albumin 1.5 G/DL (3.4-5.0); Bilirubin,Total 0.4 MG/DL (0.2-1.0); Calcium 9.4 MG/DL (8.5-10.1); Osmolality,Calculated 308.4 MOS/KG (273-304); Potassium 4.2 MMOL/L (3.5-5.1); Total Protein 3.7 G/DL (6.4-8.3)
[2016-03-14 04:10] VITALS: BP 93/67
[2016-03-14] MEDS: INSULIN REGULAR 100 UNIT/ML SUBCUT SCH (04:34)
--- NOTE | 2016-03-14 15:45 | Event Note ---
The pt was recovering very well from salvage CABG done 2 days earlier, he was on NC, diet and ambulating well, however, I got called at 44 as a patient started having atrial fibrillation with rapid ventricular response. Orders were given over the phone. Upon my arrival to the hospital at 54 the patient was being coded CPR was in progress and he was intubated. He was having agonal breathing. At this point his as was his CPR was in progress the chest was prepped at the bedside and it was opened. The right ventricle was noted to be in complete asystole. The left ventricle had some activity with some organized contractions. Performance cardiac massage with good blood pressure response. He continues to have some agonal breathing. During that time I was initially informed that the port team was called and they're on their way. He received multiple doses of epi Luis, calcium, bicarbonate. Cardiac massage continued however it was noted that he was in severe right heart failure and there was no cardiac activity on the right side of the heart. Cardiac massage continued however it was noted activity of the left ventricle started to be affected and it was episodically and asystole as well. This continued until 214. At that time there was biventricular asystole. I felt that there is no option for recovery at this point. I had a lengthy discussion with his . She agreed to proceed with stopping resuscitation efforts.
== END 2016-03-14 02:09 | disposition expired | DRG 231 ==
LOC: N.ED 16:35 → N.ICU 17:26 → N.TELES 03-08 14:12 → N.CVR 03-12 11:05 → N.ICU 03-13 08:09
PROVIDERS: ADMIT Internal Medicine Cardiovascular Disease; ATTEND Internal Medicine Cardiovascular Disease